=== PATIENT | female | born 1930 | race Caucasian/White ===

== ENCOUNTER 2017-07-10 10:28 | Inpatient (IN) | payer MEDICARE, MEDICAID ==
[2017-07-10] MEDS ORDERED: Albuterol Sulfate 2.5 mg/3 ml Neb ONE (11:19)
[2017-07-10] MEDS ORDERED: Guaifenesin DM 100-10/5 ML UDCUP PO PRN (11:57)
[2017-07-10] MEDS ORDERED: Ondansetron ODT 4 MG TAB PO PRN (11:57)
[2017-07-10] MEDS ORDERED: Senokot 8.6 MG TAB PO PRN (11:57)
[2017-07-10] MEDS ORDERED: Mag-Al 1200 mg/1200 mg/30 ML UDCUP PO PRN (11:57)
[2017-07-10] MEDS ORDERED: Acetaminophen 325 MG TAB PO PRN (11:57)
[2017-07-10] MEDS ORDERED: Sodium Chloride 0.9% 1,000 ML IV SCH ×3 (12:00→15:15)
[2017-07-10] MEDS ORDERED: Dextrose 5% in Water 1,000 ML IV PRN (12:25)
[2017-07-10] MEDS ORDERED: Dextrose 50% Abboject 50 ML SYRINGE SLOW IVP PRN (12:25)
[2017-07-10 13:12] LABS: Hemoglobin A1c 6.4 % (4.0-6.0)
[2017-07-10 13:31] LABS: Troponin I 0.053 ng/mL (< 0.028)
[2017-07-10] MEDS ORDERED: Nitroglycerin 0.4 MG TAB (25 Tab Bottle) SL PRN (13:47)
[2017-07-10 14:22] LABS: Magnesium 1.8 mg/dL (1.6-2.6); Phosphorus 3.6 mg/dL (2.3-4.7)
--- NOTE | 2017-07-10 14:42 | PDOC.EVN ---
Attending Addendum - Attending Addendum I personally evaluated the patient and discussed the management with Dr. Garcia. I agree with the History, Examination, Assessment and Plan documented in his H& P with any addition or exceptions noted below. Patient is 87 yo F with history of CAD s/p CABG, HTN, HLD, COPD, DM, and possible CHF who presents with 10 days of feeling "sick". Patient endorses malaise, progressive shortness of breath with dry cough, and nasal congestion during this time. She denies fevers, chills, lower extremity edema, nausea, vomiting. This morning, she was experiencing significant dyspnea and therefore presented to the ER. She was found at that time to have O2 sats in the 70s on room air. WBC elevated to 20.2 with 82% neutrophils, Creatinine 3.2 with GFR 14. She also has elevated BNP and indeterminate trop. CXR from outside ER showed LLL infiltrate and possible RLL infiltrate. Her lung exam is significant for diffuse rales and expiratory wheezes, mild rhonchi. Her cap refill is 4 seconds and she has no lower extremity edema. Patient admitted for Hypoxic respiratory failure and Sepsis likely 2/2 Community Aquired Pneumonia. She has been started on Rocephin and Azithromycin, IV fluids, and cultures obtained. O2 as needed and neb treatments for respiratory support. She has severe kidney disease, unknown if acute or chronic. Will see how it responds to IVF and recheck in AM. If continues to be end stage range, will need nephrology consult , though no current indication for urgent or emergent HD. She may have heart failure, though no current evidence of volume overload. Will need to monitor closely. Echo will be ordered. Other chronic home meds will be continued.
[2017-07-10 15:33] VITALS: BMI 25.0
--- NOTE | 2017-07-10 16:11 | HP-2 ---
DATE OF ADMISSION: 07/10/2017 CODE STATUS: DNR. PRIMARY CARE PHYSICIAN: Deepa Kuhn. ATTENDING: Gage Guevara M.D. RESIDENT: Aime Garcia M.D., PGY1. CHIEF COMPLAINT: Being sick for the last 10 days with cough. HISTORY OF PRESENT ILLNESS: This is an 87-year-old female with a 10-day history of being sick, says mainly she has just been having a real bad cough. Has shortness of breath that has continued to get worse until it got so worse today that she decided to go to the ER. Said she has also been having ru nny nose, having some nasal congestion, has not had any sore throat. Reports having fevers off and o n. No chills, no sweating. Denies any chest pain. Denies any nausea, vomiting, diarrhea, constipat ion. Denies any urinary symptoms, burning with urination, increased urination or anything like that. She (00:00) just reports having a cough and runny nose. Said she has just not been feeling well, b een lying in bed over the last 10 days, has been drinking fluids okay, has not been eating as much th ough, but is tolerating food as well. Says that she did have a stress test earlier in the recent pas t, was told that she needed to follow up in August. Denies any echo or anything like that. PAST MEDICAL HISTORY: Diabetes mellitus, chronic heart failure, hypertension, hyperlipidemia, histor y of DVTs, has had 2 heart attacks in the past. PAST SURGICAL HISTORY: She has had bilateral knee surgeries, x2 and triple bypass. ALLERGIES: SULFA MEDICATIONS. MEDICATIONS: 1. Ezetimibe 10 mg daily. 2. Duloxetine 20 mg 1 time daily. 3. Losartan 25 mg daily. 4. Simvastatin 20 mg 1 time daily. 5. Carvedilol 12.5 mg 2 times daily. 6. Levothyroxine 125 (00:00) mcg daily. 7. Furosemide 20 mg daily. FAMILY HISTORY: Insignificant. SOCIAL HISTORY: Tobacco, she quit 11 years ago, 40+ year pack per day smoker. No alcohol use, no il licit drug use. REVIEW OF SYSTEMS: All review of systems listed in the HPI, otherwise negative at this time. PHYSICAL EXAMINATION: VITAL SIGNS: Blood pressure 137/69, pulse 78, respirations 20, temperature is 98.4, pulse ox 93% on 3 liters. Current weight is (00:00) 73.48 kilograms. GENERAL: This is alert and oriented x3. Well-developed, well-nourished, appropriately interactive. EYES: PERRLA. Conjunctivae within normal limits. ENT: Nasal mucosa within normal limits. Oropharynx within normal limits. NECK: Supple, no lymphadenopathy, no thyromegaly, no bruits. CARDIOVASCULAR: Regular rate and rhythm. No murmurs, no gallops. Radial pulses, pedal pulses palpa judi bilaterally. RESPIRATORY: Normal breathing effort. No retractions. LUNGS: Expiratory wheezes noted, rales noted all over. Some diffuse crackles throughout her lungs. SKIN: Warm, dry. No lesions noted. No redness noted in lower extremities. ABDOMEN: Soft, nontender to palpation. Bowel sounds are in all 4 quadrants. No masses or distentio n. MUSCULOSKELETAL: Structure within normal limits. Full range of motion. No edema. No pitting. No swelling noted. NEUROLOGIC: No focal neuro deficit. LABORATORY DATA: White blood cell count 22.2, hemoglobin 11.4, hematocrit 34.4, neutrophils 82%, lucila telets 371. Sodium is 134, potassium is 4.7, chloride is 99, bicarbonate is 21, BUN is 64, and creat inine is 3.2. GFR is 14. Glucose is 224, calcium is 10.3, total protein is 8.1, albumin is 3.3, tot al bilirubin is 0.6, AST is 94, ALT is 35, alkaline phosphatase is 132, CK-MB is 4.2. Troponin was 0 .034. BNP was 1012. TSH was 4.835. EKG had some T-wave changes. Chest x-ray is read as pending. Look like some fluid overload and also look like a left lower lobe consolidation on my observation. ASSESSMENT AND PLAN: 1. Sepsis secondary to acute hypoxic respiratory failure secondary to left lower lobe pneumonia and was given Rocephin and azithromycin at the outside ER. We will continue this antibiotic treatment. We will check urinary antigen, legionella and strep pneumo antigens to see if we can find a source of pneumonia to further treatment plan. I will do DuoNebs q.4 hours scheduled. We will check a lactic acid as she had an elevated white blood cell count, had elevated respiratory rate, was 70% on the ou tside ER. We will want to get a lactic acid to check on the sepsis status. 2. We will check CBC, CMP repeat in the a.m., was started on fluids at a rate of 125 mL an hour. We will continue to monitor, as she does have congestive heart failure as well. 3. Chronic obstructive pulmonary disease exacerbation. Plan as above. We can see how she does over the next few days, may consider adding on steroids to help with breathing status. Does not use oxyg en at home. 4. Chronic heart failure. Her BNP is elevated. She does not seem fluid overloaded. Chest x-ray sh ows maybe some mild fluid overload. Has not had an echo. We will get an echo. We will give gentle fl uids for the infections. We will hold her home Lasix for now and continue to monitor daily BMPs che ked for fluid overload and will adjust fluids as needed. 5. Chronic kidney disease stage 5. GFR was 14, creatinine was 3.2. We do not have a baseline, unsu re what the patient normally fits. She said her urine output has not been very good over this course of being sick. Again we are giving fluids per plan above. We will recheck BMP in the morning to se e if this helps. Patient may just be fluid down as she has been taking Lasix, been ill, maybe not be en drinking enough fluids. 6. Diabetes mellitus. We will get a hemoglobin A1c. Blood sugars were little elevated. Placed on mild sliding scale insulin. We will check Accu-Cheks a.c. and at bedtime. 7. Hypertension. We will continue her home medications. 8. Hyperlipidemia. We will continue her home medications. 9. Normocytic anemia. We will continue to monitor with daily CBCs and then we may need to follow up outpatient. 10. Elevated troponin. Troponins 0.034. Has a significant heart history, I will continue to trend troponins. Patient has denied any chest pain or any heart pain. She says she has not felt anything like she had heart attacks in her recent past. 11. Deep venous thrombosis prophylaxis. We will put on Lovenox with her history of deep venous thro mboses.
[2017-07-10 16:12] LABS: Troponin I 0.037 ng/mL (< 0.028)
[2017-07-10] MEDS ORDERED: Prevnar 13-Val Conj/PF 0.5 ML SYRINGE IM ONE (16:45)
[2017-07-10] MEDS ORDERED: FLU VACC TS2017-18 (>65YR) 0.5 ML SYRINGE IM ONE (16:45)
[2017-07-10 16:53] LABS: Legionella Urinary Ag Negative (Negative); Strep pneumo Urine Ag NEGATIVE (NEGATIVE)
[2017-07-10] MEDS: HumaLOG 300 UNITS/3 ML VIAL SC PRN (19:34)
[2017-07-10] MEDS: Docusate 100 MG CAP PO SCH (20:30)
[2017-07-10] MEDS: Atorvastatin Calcium 10 MG TAB PO SCH (20:30)
[2017-07-10] MEDS ORDERED: Atorvastatin Calcium 40 MG TAB PO SCH (21:00)
[2017-07-10] MEDS: Sodium Chloride 0.9% 1,000 ML IV SCH ×2 (21:45→23:15)
[2017-07-10 22:19] LABS: Bilirubin Negative (Negative); Blood, Urine Small (Negative); Clarity CLOUDY (Clear); Glucose, Urine (Dipstick) 250 mg/dL (Negative); Leukocyte Negative (Negative); Nitrite Negative (Negative); Protein, Urine (Dipstick) 300 mg/dL (Neg-Trace); Specific Gravity, Urine 1.019 (1.002-1.036); pH, Urine 5.5 (5.0-9.0)
[2017-07-10 22:24] LABS: Bacteria/HPF None Seen HPF (None Seen); Hyaline Casts/LPF 7-10 HYALINE CAST LPF (0-3 Hyaline); Pathc Cast-AUWi Flag 2.43 (0-2.49); RBC/HPF 0-3 HPF (0-3)
[2017-07-10 22:39] LABS: Creatinine, Urine 111.53 mg/dL (47-110); Sodium, Urine Less than 20 mmol/L (Not Available)
[2017-07-11] MEDS: Levothyroxine Sodium 125 MCG TAB PO SCH (05:05)
[2017-07-11] MEDS: HumaLOG 300 UNITS/3 ML VIAL SC PRN (05:24)
[2017-07-11 05:36] LABS: #Lymphocytes 1.2 thou/uL (1.20-3.40); #Monocytes 0.5 thou/uL (0.11-0.59); #Neutrophils 12.3 thou/uL (1.40-6.50); %Basophils 0.2 % (0.0-1.0); %Eosinophils 0.1 % (0.0-10.0); %Lymphocytes 8.4 % (21.0-51.0); %Monocytes 3.5 % (0.0-10.0); %Neutrophils 87.7 % (42.0-75.0); Hemoglobin 8.9 g/dL (12.0-16.0); Mean Corpuscular HGB CONC 32.5 g/dL (32.0-36.0); Mean Corpuscular Hemoglobin 30.3 pg (27.0-31.0); Mean Corpuscular Volume 93.2 fl (81.0-99.0); Mean Platelet Volume 7.6 fL (7.4-10.4); Platelet Count 363 thou/uL (130-400); RBC Distribution Width 12.3 % (11.5-14.5); Red Blood Cell (RBC) Count 2.94 mill/uL (4.20-5.40)
[2017-07-11 05:49] LABS: ALT (SGPT) 35 U/L (8-55); AST (SGOT) 102 U/L (5-34); Albumin 2.7 g/dL (3.4-4.8); Alkaline Phosphatase 114 U/L (40-150); Anion Gap 14 mmol/L (10-20); BUN (Urea Nitrogen) 71 mg/dL (9.8-20.1); Bilirubin, Total 0.2 mg/dL (0.2-1.2); Calc. Creatinine Clearance 15 mL/min (70-130); Calcium 8.9 mg/dL (7.8-10.44); Carbon Dioxide 22 mmol/L (23-31); Chloride 103 mmol/L (98-107); Estimated GFR-MDRD 15; Globulin 3.7 g/dL (2.4-3.5); Glucose 276 mg/dL (83-110); Protein, Total 6.4 g/dL (6.0-8.3); Sodium 134 mmol/L (136-145)
[2017-07-11] MEDS ORDERED: Levothyroxine 100 MCG SDV IVP SCH (06:00)
--- NOTE | 2017-07-11 06:55 | PDOC.FM ---
- Subjective Subjective: Pt reports feeling much better today. Says her cough has improved and not as SOB. Denies any acute events overnight. Denies any fever or chills. Denies any other problems at this time. - Objective Vital Signs & Weight: Vital Signs (12 hours) Temp Pulse Resp BP Pulse Ox 07/11/17 05:00 98.8 F 69 19 155/72 H 96 07/11/17 02:23 64 16 07/11/17 00:00 98 F 94 18 131/63 95 07/10/17 22:49 66 16 07/10/17 19:45 97.9 F 96 18 167/79 H 99 07/10/17 19:42 68 16 93 L 07/10/17 19:00 98.0 F 68 16 96 Weight Weight 72.303 kg I&O: 07/09/17 07/10/17 07/11/17 06:59 06:59 06:59 Intake Total 1850 Balance 1850 Result Diagrams: 07/11/17 05:11 07/11/17 05:11 Radiology Reviewed by me: Yes Radiology: CXR 07/11: 1. Similar appearance to the chest w/ likely chronic opacity of the lingula right perihilar region left lower lobe. Given the density of the r hilum. a f/u ct nonemergent can be performed. 2. mild increased interstitial makings, chronic in nature <Aime Garcia - Last Filed: 07/11/17 08:35> - Objective Vital Signs & Weight: Vital Signs (12 hours) Temp Pulse Resp BP BP Pulse Ox 07/11/17 11:37 97.8 F 66 20 134/69 97 07/11/17 10:31 99 07/11/17 10:29 64 20 99 07/11/17 09:31 158/71 H 07/11/17 08:20 98.9 F 62 20 158/71 H 97 07/11/17 08:00 98.9 F 62 20 97 07/11/17 05:00 98.8 F 69 19 155/72 H 96 07/11/17 02:23 64 16 Weight Admit Weight 72.303 kg Weight 72.303 kg I&O: 07/10/17 07/11/17 07/12/17 06:59 06:59 06:59 Intake Total 1850 Balance 1850 Result Diagrams: 07/11/17 05:11 07/11/17 05:11 <GuevaraGage Shelley Cynthia - Last Filed: 07/11/17 12:10> Phys Exam - Physical Examination Constitutional: NAD HEENT: PERRLA Respiratory: no wheezing crackles noted. Decreased breath sounds in bases bilaterally Cardiovascular: RRR, no significant murmur, no rub Gastrointestinal: soft, non-tender, no distention, positive bowel sounds Musculoskeletal: no edema, pulses present Neurological: non-focal, normal sensation, moves all 4 limbs Lymphatic: no nodes Psychiatric: normal affect, A&O x 3 Skin: no rash, normal turgor, cap refill <2 seconds <Aime Garcia - Last Filed: 07/11/17 08:35> Dx/Plan (1) Acute respiratory failure with hypoxia Code(s): J96.01 - ACUTE RESPIRATORY FAILURE WITH HYPOXIA Status: Acute (2) Pneumonia Code(s): J18.9 - PNEUMONIA, UNSPECIFIED ORGANISM Status: Acute (3) Sepsis Code(s): A41.9 - SEPSIS, UNSPECIFIED ORGANISM Status: Resolved (4) CHARMAINE (acute kidney injury) Code(s): N17.9 - ACUTE KIDNEY FAILURE, UNSPECIFIED Status: Acute (5) CKD (chronic kidney disease) Code(s): N18.9 - CHRONIC KIDNEY DISEASE, UNSPECIFIED Status: Acute (6) Diabetes Code(s): E11.9 - TYPE 2 DIABETES MELLITUS WITHOUT COMPLICATIONS Status: Acute (7) COPD (chronic obstructive pulmonary disease) Status: Acute (8) Hypothyroidism Code(s): E03.9 - HYPOTHYROIDISM, UNSPECIFIED Status: Acute (9) Hx of coronary artery disease Code(s): Z86.79 - PERSONAL HISTORY OF OTHER DISEASES OF THE CIRCULATORY SYSTEM Status: Acute (10) Hx of deep venous thrombosis Code(s): Z86.718 - PERSONAL HISTORY OF OTHER VENOUS THROMBOSIS AND EMBOLISM Status: Acute - Plan Plan: 1)Acute hypoxic respitory failure 2/2 PNA -Requiring oxygen at this time. Does not use O2 at home. -On rocephin and azithromycin for abx coverage at this time. -Blood cx- NGTD -Repeat CXR shows no real changes. Shows LLL density likely PNA. Also shows some sign of fluid overload. Likely will D/C fluids and maybe give small dose of IV lasix. -WBC count has improved -Sepsis has since resolved. Vital signs stable overnight 2) CHF -Pt has hx of CHF -Has not had ECHO. Awaiting ECHO results to further tailor tx -Does not show signs of fluid overload at this time. Lasix being held for now. 3) CHARMAINE on CKD -CKD stage unknown. do not know baseline. GFR 14 or 15. either stage 4 or 5. -Cr improved today after fluids. -May need lasix but do not want to worsen kidney function. No sign of fluid overload on exam. Will continue IV fluids for now and continue to monitor BMP 4) DM2 -Blood sugars elevated. On moderate sliding scale insulin. Added baseline dose of levermir 10 units in the AM today. -Will continue to monitor and adjust 5) HTN -BP elevated. May need to increase blood pressure medication. Lasix being held at this time. Will continue to monitor 6)Hypothyroidism -continue home meds 7) HLD -continue home meds 8)DVT Ppx -Lovenox <Aime Garcia - Last Filed: 07/11/17 08:35> Attending Addendum - Attending Addendum I personally evaluated the patient and discussed the management with Dr. Garcia. I agree with the History, Examination, Assessment and Plan documented above with any addition or exceptions noted below. Patient subjectively better but with continuation of nagging cough. Her O2 sats are improved and air entry is improved. Continue abx for community acquired pneumonia. Her WBC has downtrended and she is afebrile. Her renal function did not substantially improve yesterday, but studies continue to suggest pre-renal cause in the setting of unknown degree of CKD. Will continue fluid hydration. If her renal function does not improve significantly today with fluids, will need nephrology consult. No lab abnormalities to suggest the need for renal replacement therapy at this time. Patient does endorse that she does not want to persue dialysis if that becomes necessary. Will monitor closely for fluid overload, Echo pending. <Gage Guevara - Last Filed: 07/11/17 12:10>
[2017-07-11 07:42] LABS: Iron 31 ug/dL (50-170); Iron Binding Capacity, Total 169 mcg/dL (265-497)
--- NOTE | 2017-07-11 08:25 | RAD ---
CHEST 2 VIEWS: HISTORY: Pleural effusion. COMPARISON: Chest 1 view 07/10/17. FINDINGS: There is a right hilar opacity. There is scarring in the lingula. Small left effusion. No pneumoth orax. Scarring in the lung apices. Mild increased interstitial markings. Dense vascular calcifications of the aorta. IMPRESSION: 1. Similar appearance to the chest with likely chronic opacity of the lingula right perihilar region left lower lobe. Given the density of the right hilum, a followup CT nonemergent can be performed. 2. Mild increased interstitial markings, likely chronic in nature. POS: [facility]
[2017-07-11] MEDS ORDERED: cefTRIAXone\\ROCEPHIN 1 GM in Sodium Chloride 0.9% 100 ML IVPB SCH (09:00)
[2017-07-11] MEDS ORDERED: Insulin Detemir 100 UNITS/ML 10 UNITS in Pre-Filled Syringe 1 EACH SC SCH (09:00)
[2017-07-11] MEDS: Ezetimibe 10 MG TAB PO SCH (09:30)
[2017-07-11] MEDS: Losartan 25 MG TAB PO SCH (09:31)
[2017-07-11] MEDS: cefTRIAXone\\ROCEPHIN 1 GM, Syringe 0.4 ML in Sterile Water 9.6 ML SLOW IVP SCH (09:31)
[2017-07-11] MEDS: Carvedilol 6.25 MG TAB PO SCH ×2 (09:31→17:19)
[2017-07-11] MEDS: Furosemide 20 MG TAB PO SCH (09:31)
[2017-07-11] MEDS: Aspirin 325 MG TAB PO SCH (09:31)
[2017-07-11] MEDS: Enoxaparin Sodium 40 MG/0.4 ML SYRINGE SC SCH (09:32)
[2017-07-11] MEDS: Docusate 100 MG CAP PO SCH ×2 (09:32→20:48)
[2017-07-11] MEDS: Azithromycin 500 MG in Sodium Chloride 0.9% 250 ML 250 ML IVPB SCH (09:32)
[2017-07-11 14:24] LABS: Anion Gap 13 mmol/L (10-20); BUN (Urea Nitrogen) 72 mg/dL (9.8-20.1); Calc. Creatinine Clearance 16 mL/min (70-130); Calcium 8.9 mg/dL (7.8-10.44); Carbon Dioxide 24 mmol/L (23-31); Chloride 104 mmol/L (98-107); Estimated GFR-MDRD 15; Glucose 172 mg/dL (83-110); Potassium 4.4 mmol/L (3.5-5.1); Sodium 137 mmol/L (136-145)
[2017-07-11] MEDS: Sodium Chloride 0.9% 1,000 ML IV SCH ×2 (17:21→20:51)
--- NOTE | 2017-07-11 17:21 | ULT ---
RENAL ULTRASOUND: 07/11/17 CLINICAL HISTORY: Acute renal insufficiency. FINDINGS: Renal lengths are symmetric, at approximately 9 cm. There is a cyst just under 2 cm in diameter at th e superior pole right kidney. Urinary bladder reveals no significant abnormality. There is no overt h ydronephrosis. Incidental cholelithiasis is seen. IMPRESSION: Right renal cyst. Incidental cholelithiasis. Correlate clinically. POS: [facility]
[2017-07-11 19:57] LABS: Creatinine, Urine 62.74 mg/dL (47-110)
[2017-07-11] MEDS: Atorvastatin Calcium 10 MG TAB PO SCH (20:48)
[2017-07-11] MEDS: guaiFENesin/DM ER PO SCH (20:48)
--- NOTE | 2017-07-12 01:11 | CON ---
DATE OF CONSULTATION: 07/11/2017 REASON FOR CONSULTATION: Elevated creatinine. HISTORY OF PRESENT ILLNESS: This is a very pleasant 87-year-old female who presented to the hospital yesterday with a creatinine of 3.2, which went down to 2.1. The patient has been sick for the last 10 days with cough. The patient denies chest pain, orthopnea or PND and has edema . PAST MEDICAL HISTORY: Significant for diabetes mellitus, congestive heart failure, hyperlipidemia, DVT, history of coronary artery disease, history of bilateral knee surgeries, and triple bypass. ALLERGIES: Reviewed. HOME MEDICATIONS: List reviewed. HOSPITAL MEDICATIONS: List reviewed. REVIEW OF SYSTEMS: Fifteen-point review of systems was performed and negative except positives noted above. GENERAL: Weakness- HEAD: Headache- NECK: No swelling or lumps. NOSE: No epistaxis or discharge. EYES: No diplopia or pain. RESPIRATORY: Dyspnea- CARDIOVASCULAR: Chest pain- GASTROINTESTINAL: Nausea- /TRACTOR [employer]IVER: Hematuria- MUSCULOSKELETAL: No joint pain. NEUROPSYCHIATIC SYSTEMS: No suicidal ideation. No ideation. SKIN: Denies any rash or ulcer. CONSTITUTIONAL: No fever or chills. PHYSICAL EXAMINATION: GENERAL: The patient is awake and alert. VITAL SIGNS: Afebrile, pulse 95, breathing at 16, blood pressure 120/70. GENERAL APPEARANCE AND MENTAL STATUS: Fair. HEAD/NECK: Normocephalic. Atraumatic. EYES: EOMI. No deformity. EARS: Clear. No ulcers. NOSE: Intact. No lesions. MOUTH: Clear. No discharge. THROAT: Clear. No exudate. LUNGS: Clear. No crackles. CARDIAC: S1, S2. No rub. ABDOMEN: Benign. BS+. GENITALIA/RECTUM: Garner absent. BACK/EXTREMITIES: Edema 0+ Ulcer-. NEUROLOGICAL: Alert and motor intact. SKIN: Rash- Bruise-. LYMPHATICS: Edema- Ulcer-. ASSESSMENT AND RECOMMENDATIONS: 1. Acute kidney injury with chronic kidney disease, most likely due to decreased effective arterial blood volume . I will try to get old records and order renal imaging. 2. Hypertension, stable. 3. Anemia, stable. 4. Proteinuria, indicates chronic kidney disease. We will consider workup like an SPEP and UPEP as an outpatient. All the above findings were discussed with the patient and all questions were answered. ANNA
[2017-07-12] MEDS: Sodium Chloride 0.9% 1,000 ML IV SCH ×2 (04:45→13:46)
[2017-07-12 05:28] LABS: #Eosinphils 0.2 thou/uL (0.0-0.7); #Lymphocytes 1.8 thou/uL (1.20-3.40); #Neutrophils 12.1 thou/uL (1.40-6.50); %Basophils 0.1 % (0.0-1.0); %Eosinophils 1.5 % (0.0-10.0); %Lymphocytes 11.8 % (21.0-51.0); %Monocytes 6.8 % (0.0-10.0); %Neutrophils 79.8 % (42.0-75.0); Hemoglobin 9.1 g/dL (12.0-16.0); Mean Corpuscular HGB CONC 31.5 g/dL (32.0-36.0); Mean Corpuscular Hemoglobin 29.7 pg (27.0-31.0); Mean Corpuscular Volume 94.4 fl (81.0-99.0); Mean Platelet Volume 7.2 fL (7.4-10.4); Platelet Count 382 thou/uL (130-400); RBC Distribution Width 12.5 % (11.5-14.5); Red Blood Cell (RBC) Count 3.06 mill/uL (4.20-5.40); White Blood Cell (WBC) Count 15.1 thou/uL (4.8-10.8)
[2017-07-12] MEDS: Levothyroxine Sodium 125 MCG TAB PO SCH (05:46)
[2017-07-12 06:15] LABS: ALT (SGPT) 40 U/L (8-55); AST (SGOT) 114 U/L (5-34); Albumin 2.6 g/dL (3.4-4.8); Alkaline Phosphatase 104 U/L (40-150); Anion Gap 12 mmol/L (10-20); BUN (Urea Nitrogen) 66 mg/dL (9.8-20.1); Bilirubin, Total Less than 0.2 mg/dL (0.2-1.2); Calc. Creatinine Clearance 17 mL/min (70-130); Calcium 8.6 mg/dL (7.8-10.44); Carbon Dioxide 22 mmol/L (23-31); Chloride 109 mmol/L (98-107); Estimated GFR-MDRD 16; Globulin 3.4 g/dL (2.4-3.5); Glucose 88 mg/dL (83-110); Potassium 4.2 mmol/L (3.5-5.1); Sodium 139 mmol/L (136-145)
--- NOTE | 2017-07-12 06:55 | PDOC.FM ---
Addendum entered and electronically signed by Aime Garcia MD 07/12/17 10:57 : Pt reports being weak getting up. Having trouble pushing off. Also said she laid in bed 10 days prior to admission due to illness. Likely has some deconditioning. Pt said she does not feel safe to go home soon. Will order rehab screening at this time Original Note: - Subjective Subjective: Pt reports doing well this morning. She had just awoken from slumber. Denied any acute events overnight. Denied any fever or chills. Denied having pain. Said cough was doing better. Stated she hadn't worked with PT/OT. - Objective MAR Reviewed: Yes Vital Signs & Weight: Vital Signs (12 hours) Temp Pulse Resp BP Pulse Ox 07/12/17 00:00 97.5 F L 65 20 138/56 L 93 L 07/11/17 22:02 69 18 97 07/11/17 20:00 97.5 F L 69 18 138/56 L 93 L 07/11/17 19:37 97.6 F 69 22 H 170/101 H 97 Weight Admit Weight 72.303 kg Weight 72.303 kg I&O: 07/10/17 07/11/17 07/12/17 06:59 06:59 06:59 Intake Total 1850 1824 Balance 1850 1824 Result Diagrams: 07/12/17 04:48 07/12/17 04:48 Radiology Reviewed by me: Yes (No new images to review) <Aime Garcia - Last Filed: 07/12/17 08:06> - Objective Vital Signs & Weight: Vital Signs (12 hours) Temp Pulse Resp BP BP Pulse Ox 07/12/17 11:00 97.4 F L 71 18 158/71 H 94 L 07/12/17 10:20 76 24 H 07/12/17 08:31 177/72 H 07/12/17 08:03 97 07/12/17 08:00 97.9 F 71 16 177/72 H 97 07/12/17 04:00 97.6 F 73 22 H 158/64 H 97 Weight Admit Weight 72.303 kg Weight 72.303 kg I&O: 07/11/17 07/12/17 07/13/17 06:59 06:59 06:59 Intake Total 1850 1824 Balance 1850 1824 Result Diagrams: 07/12/17 04:48 07/12/17 04:48 <Gage Guevara - Last Filed: 07/12/17 12:57> Phys Exam - Physical Examination Constitutional: NAD HEENT: PERRLA, moist MMs, oral pharynx no lesions Neck: no nodes, supple, full ROM Respiratory: no wheezing, no rhonchi decreased breath sounds in the bases Cardiovascular: RRR, no significant murmur, no rub Gastrointestinal: soft, non-tender, no distention, positive bowel sounds Musculoskeletal: no edema, pulses present Neurological: non-focal, normal sensation, moves all 4 limbs Lymphatic: no nodes Psychiatric: normal affect Skin: no rash, normal turgor, cap refill <2 seconds <Aime Garcia - Last Filed: 07/12/17 08:06> Dx/Plan (1) Acute respiratory failure with hypoxia Code(s): J96.01 - ACUTE RESPIRATORY FAILURE WITH HYPOXIA Status: Acute (2) Pneumonia Code(s): J18.9 - PNEUMONIA, UNSPECIFIED ORGANISM Status: Acute (3) Sepsis Code(s): A41.9 - SEPSIS, UNSPECIFIED ORGANISM Status: Resolved (4) CHARMAINE (acute kidney injury) Code(s): N17.9 - ACUTE KIDNEY FAILURE, UNSPECIFIED Status: Acute (5) CKD (chronic kidney disease) Code(s): N18.9 - CHRONIC KIDNEY DISEASE, UNSPECIFIED Status: Chronic (6) Diabetes Code(s): E11.9 - TYPE 2 DIABETES MELLITUS WITHOUT COMPLICATIONS Status: Acute (7) COPD (chronic obstructive pulmonary disease) Status: Acute (8) Hypothyroidism Code(s): E03.9 - HYPOTHYROIDISM, UNSPECIFIED Status: Acute (9) Hx of coronary artery disease Code(s): Z86.79 - PERSONAL HISTORY OF OTHER DISEASES OF THE CIRCULATORY SYSTEM Status: Acute (10) Hx of deep venous thrombosis Code(s): Z86.718 - PERSONAL HISTORY OF OTHER VENOUS THROMBOSIS AND EMBOLISM Status: Acute (11) Anemia Code(s): D64.9 - ANEMIA, UNSPECIFIED Status: Acute QualifierTitle: Anemia type: due to chronic kidney disease Chronic kidney disease stage: unspecified stage Qualified Code(s): N18.9 - Chronic kidney disease, unspecified; D63.1 - Anemia in chronic kidney disease; D63.1 - Anemia in chronic kidney disease - Plan Plan: 1)Acute hypoxic respitory failure 2/2 PNA -Requiring oxygen at this time. Does not use O2 at home. On 1 L this morning -On rocephin and azithromycin for abx coverage at this time. -Blood cx- NGTD -Repeat CXR shows no real changes. Shows LLL density likely PNA. Also shows some sign of fluid overload. -WBC had mild increase. No fevers overnight. No acute events. Will continue to watch and treat -Sepsis has since resolved. Vital signs stable overnight 2) CHF -Pt has hx of CHF -ECHO shows EF of 50-55%. Shows moderate mitral regurgitation -Does not show signs of fluid overload at this time. Lasix being held for now. -Will continue to monitor and tx with lasix if seems to be getting fluid overloaded 3) CHARMAINE on CKD -CKD stage unknown. do not know baseline. GFR 16 tdoay. either stage 4 or 5. -Cr improved today after fluids. Will continue fluids for now. Not fluid overlodaed -Nephrology consulted- Dr. Ellis- Will follow reccomendations -recommends some outpatient follow up 4) DM2 -Blood sugars in normal range. Added baseline dose of levermir 10 units in the AM. May want to decrease as she does not use insulin at home. Moderate SSI. -Will continue to monitor and adjust 5) HTN -BP elevated at times. May need to increase blood pressure medication. Lasix being held at this time. Will continue to monitor 6)Hypothyroidism -continue home meds 7) HLD -continue home meds 8)DVT Ppx -Lovenox <Aime Garcia - Last Filed: 07/12/17 08:06> Attending Addendum - Attending Addendum I personally evaluated the patient and discussed the management with Dr. Garcia. I agree with the History, Examination, Assessment and Plan documented above with any addition or exceptions noted below. Patient doing somewhat better today. Continue abx for CAP. Her O2 requirement has decreased. She does endorse weakness that has been progressive recently, will place rehab screen. Renal function somewhat improved, will continue IV hydration now that her Echo shows normal EF. Nephro on board and we appreciate their recs. <Gage Guevara - Last Filed: 07/12/17 12:57>
[2017-07-12] MEDS ORDERED: Insulin Detemir 100 UNITS/ML 5 UNITS in Pre-Filled Syringe 1 EACH SC SCH ×2 (08:16→09:00)
[2017-07-12] MEDS: Aspirin 325 MG TAB PO SCH (08:29)
[2017-07-12] MEDS: Losartan 25 MG TAB PO SCH (08:29)
[2017-07-12] MEDS: guaiFENesin/DM ER PO SCH ×2 (08:29→22:14)
[2017-07-12] MEDS: Furosemide 20 MG TAB PO SCH (08:29)
[2017-07-12] MEDS: Ezetimibe 10 MG TAB PO SCH (08:29)
[2017-07-12] MEDS: Docusate 100 MG CAP PO SCH ×2 (08:29→22:14)
[2017-07-12] MEDS: Carvedilol 6.25 MG TAB PO SCH ×2 (08:31→17:45)
[2017-07-12] MEDS: cefTRIAXone\\ROCEPHIN 1 GM, Syringe 0.4 ML in Sterile Water 9.6 ML SLOW IVP SCH (08:33)
[2017-07-12] MEDS: Azithromycin 500 MG in Sodium Chloride 0.9% 250 ML 250 ML IVPB SCH (08:34)
[2017-07-12] MEDS: Enoxaparin Sodium 40 MG/0.4 ML SYRINGE SC SCH (08:34)
--- NOTE | 2017-07-12 10:28 | PRG ---
DATE OF SERVICE: 07/12/2017 SUBJECTIVE: An 87-year-old female being seen for acute kidney injury. The patient denies any nausea , vomiting or chest pain. PHYSICAL EXAMINATION: GENERAL: Patient is awake, alert. VITAL SIGNS: Afebrile, pulse 97, breathing at 16, blood pressure 177/72. OBJECTIVE: See above. Awake, alert, in no acute distress. GENERAL APPEARANCE AND MENTAL STATUS: Fair. HEAD/NECK: Normocephalic. Atraumatic. EYES: EOMI. No deformity. EARS: Clear. No ulcers. NOSE: Intact. No lesions. MOUTH: Clear. No discharge. THROAT: Clear. No exudate. LUNGS: Clear. No crackles. CARDIAC: S1, S2. No rub. ABDOMEN: Benign. BS+. GENITALIA/RECTUM: Garner absent. BACK/EXTREMITIES: Edema 0+ Ulcer- NEUROLOGICAL: Alert and motor intact. SKIN: Rash- Bruise- LYMPHATICS: Edema- Ulcer- LABORATORY: Hemoglobin 9.1, creatinine is 2.7. ASSESSMENT AND RECOMMENDATIONS: 1. Acute kidney injury with chronic kidney disease, improved. 2. Hypertension, stable. 3. Anemia, stable. No indication for dialysis. 4. Patient can be discharged and followed up as an outpatient in the CKD Clinic within 1 week. 5. Right renal cystic disease. No evidence of any hydronephrosis.
[2017-07-12] MEDS ORDERED: predniSONE 20 MG TAB PO SCH (10:30)
[2017-07-12] MEDS: HumaLOG 300 UNITS/3 ML VIAL SC PRN (17:47)
[2017-07-12] MEDS: Budesonide 0.25 MG/2 ML NEB INH SCH (18:22)
[2017-07-12] MEDS: Atorvastatin Calcium 10 MG TAB PO SCH (22:14)
[2017-07-13] MEDS: Sodium Chloride 0.9% 1,000 ML IV SCH (00:09)
[2017-07-13] MEDS: Levothyroxine Sodium 125 MCG TAB PO SCH (05:11)
[2017-07-13 05:13] LABS: #Lymphocytes 0.9 thou/uL (1.20-3.40); #Monocytes 0.3 thou/uL (0.11-0.59); #Neutrophils 8.8 thou/uL (1.40-6.50); %Basophils 0.3 % (0.0-1.0); %Eosinophils 0.5 % (0.0-10.0); %Lymphocytes 8.5 % (21.0-51.0); %Monocytes 2.9 % (0.0-10.0); %Neutrophils 87.8 % (42.0-75.0); Hemoglobin 8.6 g/dL (12.0-16.0); Mean Corpuscular HGB CONC 31.5 g/dL (32.0-36.0); Mean Corpuscular Hemoglobin 29.8 pg (27.0-31.0); Mean Corpuscular Volume 94.6 fl (81.0-99.0); Mean Platelet Volume 7.3 fL (7.4-10.4); Platelet Count 363 thou/uL (130-400); RBC Distribution Width 12.7 % (11.5-14.5); Red Blood Cell (RBC) Count 2.89 mill/uL (4.20-5.40); White Blood Cell (WBC) Count 10.1 thou/uL (4.8-10.8)
[2017-07-13 05:26] LABS: ALT (SGPT) 30 U/L (8-55); AST (SGOT) 42 U/L (5-34); Albumin 2.6 g/dL (3.4-4.8); Alkaline Phosphatase 94 U/L (40-150); Anion Gap 13 mmol/L (10-20); BUN (Urea Nitrogen) 62 mg/dL (9.8-20.1); Bilirubin, Total Less than 0.2 mg/dL (0.2-1.2); Calc. Creatinine Clearance 18 mL/min (70-130); Calcium 8.3 mg/dL (7.8-10.44); Carbon Dioxide 22 mmol/L (23-31); Chloride 106 mmol/L (98-107); Estimated GFR-MDRD 17; Globulin 3.3 g/dL (2.4-3.5); Glucose 323 mg/dL (83-110); Potassium 4.9 mmol/L (3.5-5.1); Protein, Total 5.9 g/dL (6.0-8.3); Sodium 136 mmol/L (136-145)
--- NOTE | 2017-07-13 06:29 | PDOC.FM ---
- Subjective Subjective: Pt reports doing a little better this morning. States she is breathing a little better after steroids. Currenlty on 1 L of oxygen. Says she is still weak. Says rehab screening people came and talked with her yesterday. She is okay with a stay there after discharge. Denies any acute SOB. Denies any fever/chills overnight. Denies any acute events overnight. Still has not had a BM at this time. Just ate some prunes - Objective MAR Reviewed: Yes Vital Signs & Weight: Vital Signs (12 hours) Temp Pulse Resp BP Pulse Ox 07/13/17 00:00 97.3 F L 68 20 138/65 95 07/12/17 20:00 97.3 F L 75 22 H 131/63 92 L Weight Admit Weight 72.303 kg Weight 72.303 kg I&O: 07/11/17 07/12/17 07/13/17 06:59 06:59 06:59 Intake Total 1850 2064 5675 Balance 1850 8282 4316 Result Diagrams: 07/13/17 04:13 07/13/17 04:13 <Aime Garcia - Last Filed: 07/13/17 08:28> - Objective Vital Signs & Weight: Vital Signs (12 hours) Temp Pulse Resp BP BP Pulse Ox 07/13/17 10:06 64 18 98 07/13/17 08:59 166/68 H 07/13/17 08:00 97.3 F L 64 16 166/68 H 100 07/13/17 06:56 70 16 94 L 07/13/17 06:54 70 16 94 L 07/13/17 04:00 97.3 F L 70 20 166/78 H 94 L 07/13/17 00:00 97.3 F L 68 20 138/65 95 Weight Admit Weight 72.303 kg Weight 72.303 kg I&O: 07/12/17 07/13/17 07/14/17 06:59 06:59 06:59 Intake Total 1824 9952 240 Balance 1824 3841 240 Result Diagrams: 07/13/17 04:13 07/13/17 04:13 <Gage Guevara - Last Filed: 07/13/17 11:52> Phys Exam - Physical Examination HEENT: PERRLA, moist MMs Neck: no nodes, supple, full ROM Respiratory: wheezing present Rhonchi noted Cardiovascular: RRR, no significant murmur, no rub Gastrointestinal: soft, non-tender, positive bowel sounds mildly distended Musculoskeletal: no edema, pulses present Neurological: non-focal, normal sensation, moves all 4 limbs Lymphatic: no nodes Psychiatric: normal affect Skin: no rash, normal turgor, cap refill <2 seconds <Aime Garcia - Last Filed: 07/13/17 08:28> Dx/Plan (1) Acute respiratory failure with hypoxia Code(s): J96.01 - ACUTE RESPIRATORY FAILURE WITH HYPOXIA Status: Acute (2) Pneumonia Code(s): J18.9 - PNEUMONIA, UNSPECIFIED ORGANISM Status: Acute (3) Sepsis Code(s): A41.9 - SEPSIS, UNSPECIFIED ORGANISM Status: Resolved (4) CHARMAINE (acute kidney injury) Code(s): N17.9 - ACUTE KIDNEY FAILURE, UNSPECIFIED Status: Acute (5) CKD (chronic kidney disease) Code(s): N18.9 - CHRONIC KIDNEY DISEASE, UNSPECIFIED Status: Chronic (6) Diabetes Code(s): E11.9 - TYPE 2 DIABETES MELLITUS WITHOUT COMPLICATIONS Status: Acute (7) COPD (chronic obstructive pulmonary disease) Status: Acute (8) Hypothyroidism Code(s): E03.9 - HYPOTHYROIDISM, UNSPECIFIED Status: Acute (9) Hx of coronary artery disease Code(s): Z86.79 - PERSONAL HISTORY OF OTHER DISEASES OF THE CIRCULATORY SYSTEM Status: Acute (10) Hx of deep venous thrombosis Code(s): Z86.718 - PERSONAL HISTORY OF OTHER VENOUS THROMBOSIS AND EMBOLISM Status: Acute (11) Anemia Code(s): D64.9 - ANEMIA, UNSPECIFIED Status: Acute QualifierTitle: Anemia type: due to chronic kidney disease Chronic kidney disease stage: unspecified stage Qualified Code(s): N18.9 - Chronic kidney disease, unspecified; D63.1 - Anemia in chronic kidney disease; D63.1 - Anemia in chronic kidney disease (12) Physical deconditioning Code(s): R53.81 - OTHER MALAISE Status: Acute (13) Constipation Code(s): K59.00 - CONSTIPATION, UNSPECIFIED Status: Acute - Plan Plan: 1)Acute hypoxic respitory failure 2/2 PNA -Requiring oxygen at this time. Does not use O2 at home. On 1 L this morning -On rocephin and azithromycin for abx coverage at this time. -Repeat CXR shows no real changes. Shows LLL density likely PNA. Also shows some sign of fluid overload. -WBC normalized this am. -Was having some wheezing yesterday and O2 usage wasn't improving very much. Added on Prednisone burst and Pulmicort. -Sepsis has since resolved. Vital signs stable overnight 2) CHF -Pt has hx of CHF -ECHO shows EF of 50-55%. Shows moderate mitral regurgitation -Does not show signs of fluid overload at this time. Lasix being held for now. -Will continue to monitor and tx with lasix if seems to be getting fluid overloaded -Holding home lasix dose this am. 3) CHARMAINE on CKD -CKD stage unknown. do not know baseline. GFR 17 tdoay. either stage 4 or 5. -Cr improved today after fluids. Will continue fluids for now. Not fluid overloaded -Nephrology consulted- Dr. Ellis- Will follow recommendations -recommends some outpatient follow up 4) DM2 -Blood sugars in normal range. Blood sugars a little elevated. will increase basal rate a little bitModerate SSI. -Will continue to monitor and adjust 5) HTN -BP stable. Will continue to monitor 6)Hypothyroidism -continue home meds 7) HLD -continue home meds 8)Deconditioning -Pt reports being weak. Does not feel safe going home. -Pt was lying around in bed ill 10 days before admission. -Pt having trouble with getting up. -Rehab screen pending -PT/OT consulted- awaiting assessment 9)DVT Ppx -Lovenox 10) Constipation -MOM, Dulcolax and Sennokot. Also has been eating prunes. -May add some mag citrate to help or suppository <Aime Garcia - Last Filed: 07/13/17 08:28> Attending Addendum - Attending Addendum I personally evaluated the patient and discussed the management with Dr. Garcia. I agree with the History, Examination, Assessment and Plan documented above with any addition or exceptions noted below. Patient feels better from respiratory standpoint. Her lungs are moving more air and is less wheezing. Continue abx and steroids for PNA in setting of coexisting COPD. Her blood sugars are labile currently, likely steroid effect. Will need escalation of insulin therapy to get her blood sugars under adequate control. Awaiting therapy services recs and possible placement. <Gage Guevara - Last Filed: 07/13/17 11:52>
[2017-07-13] MEDS: HumaLOG 300 UNITS/3 ML VIAL SC PRN ×2 (06:45→16:47)
[2017-07-13] MEDS: Budesonide 0.25 MG/2 ML NEB INH SCH ×2 (06:54→18:19)
[2017-07-13] MEDS ORDERED: Magnesium Citrate 300 ML BOT PO SCH (08:45)
[2017-07-13] MEDS: guaiFENesin/DM ER PO SCH ×2 (08:53→20:34)
[2017-07-13] MEDS: Losartan 25 MG TAB PO SCH (08:53)
[2017-07-13] MEDS: Aspirin 325 MG TAB PO SCH (08:53)
[2017-07-13] MEDS: Docusate 100 MG CAP PO SCH ×2 (08:53→20:35)
[2017-07-13] MEDS: Ezetimibe 10 MG TAB PO SCH (08:53)
[2017-07-13] MEDS: predniSONE 20 MG TAB PO SCH (08:54)
[2017-07-13] MEDS: Carvedilol 6.25 MG TAB PO SCH (08:59)
[2017-07-13] MEDS: Azithromycin 500 MG in Sodium Chloride 0.9% 250 ML 250 ML IVPB SCH (09:00)
[2017-07-13] MEDS: Enoxaparin Sodium 40 MG/0.4 ML SYRINGE SC SCH (09:01)
[2017-07-13] MEDS: Insulin Detemir 100 UNITS/ML 8 UNITS in Pre-Filled Syringe 1 EACH SC SCH (09:02)
[2017-07-13] MEDS: cefTRIAXone\\ROCEPHIN 1 GM, Syringe 0.4 ML in Sterile Water 9.6 ML SLOW IVP SCH (09:44)
[2017-07-13] MEDS ORDERED: Ferrous Sulfate 325 MG TAB PO SCH (10:00)
[2017-07-13] MEDS: Carvedilol 25 MG TAB PO SCH (16:53)
--- NOTE | 2017-07-13 17:09 | PRG ---
DATE OF SERVICE: 07/13/2017 SUBJECTIVE: This is an 87-year-old female being seen for acute kidney injury. The patient denies an y nausea, vomiting, or chest pain. OBJECTIVE: GENERAL: The patient is awake, alert. VITAL SIGNS: Afebrile, pulse 70, breathing at 16, blood pressure 166/74. GENERAL APPEARANCE AND MENTAL STATUS: Fair. HEAD/NECK: Normocephalic. Atraumatic. EYES: EOMI. No deformity. EARS: Clear. No ulcers. NOSE: Intact. No lesions. MOUTH: Clear. No discharge. THROAT: Clear. No exudate. LUNGS: Clear. No crackles. CARDIAC: S1, S2. No rub. ABDOMEN: Benign. BS+. GENITALIA/RECTUM: Garner absent. BACK/EXTREMITIES: Edema 0+ Ulcer- NEUROLOGICAL: Alert and motor intact. SKIN: Rash- Bruise- LYMPHATICS: Edema- Ulcer- LABORATORY: Lab show hemoglobin 8.6, creatinine 2.6. ASSESSMENT: 1. Chronic kidney disease stage 4, stable. 2. Hypertension, stable. 3. Anemia, stable. 4. Hypertension. I would recommend titrating the patient's blood pressure medicines, so her carvedi lol increased to 25 b.i.d.
[2017-07-13] MEDS: Atorvastatin Calcium 10 MG TAB PO SCH (20:35)
[2017-07-14 05:24] LABS: #Eosinphils 0.1 thou/uL (0.0-0.7); #Lymphocytes 1.4 thou/uL (1.20-3.40); #Monocytes 0.5 thou/uL (0.11-0.59); #Neutrophils 9.3 thou/uL (1.40-6.50); %Basophils 0.1 % (0.0-1.0); %Eosinophils 0.7 % (0.0-10.0); %Lymphocytes 12.4 % (21.0-51.0); %Monocytes 4.6 % (0.0-10.0); %Neutrophils 82.2 % (42.0-75.0); Hemoglobin 8.6 g/dL (12.0-16.0); Mean Corpuscular HGB CONC 31.2 g/dL (32.0-36.0); Mean Corpuscular Hemoglobin 29.2 pg (27.0-31.0); Mean Corpuscular Volume 93.6 fl (81.0-99.0); Mean Platelet Volume 7.4 fL (7.4-10.4); Platelet Count 367 thou/uL (130-400); RBC Distribution Width 12.5 % (11.5-14.5); Red Blood Cell (RBC) Count 2.93 mill/uL (4.20-5.40); White Blood Cell (WBC) Count 11.3 thou/uL (4.8-10.8)
--- NOTE | 2017-07-14 05:48 | PDOC.FM ---
- Subjective Subjective: Pt reports doing better again this morning. Denies any acute SOB overnight. Says that cough has improved too. says she has been getting up with walker but with assistance. Pt is agreeable to rehab. Took oxygen off and checked O2 after talking with her. O2 sat around 92-93%. took O2 off and will continue to watch her. - Objective MAR Reviewed: Yes Vital Signs & Weight: Vital Signs (12 hours) Temp Pulse Resp BP Pulse Ox 07/14/17 04:47 95 07/13/17 20:00 97.5 F L 73 20 166/75 H 95 Weight Admit Weight 72.303 kg Weight 72.303 kg I&O: 07/12/17 07/13/17 07/14/17 06:59 06:59 06:59 Intake Total 1824 2475 1020 Balance 1824 2475 1020 Result Diagrams: 07/14/17 04:34 07/14/17 04:32 Radiology Reviewed by me: Yes (no new imaging to review ) <Aime Garcia - Last Filed: 07/14/17 09:06> - Objective Vital Signs & Weight: Vital Signs (12 hours) Temp Pulse Resp BP Pulse Ox 07/14/17 11:17 97.3 F L 69 20 167/75 H 97 07/14/17 10:30 70 16 98 07/14/17 07:48 97.6 F 70 20 07/14/17 07:46 97.6 F 70 20 179/71 H 93 L 07/14/17 06:56 70 16 94 L 07/14/17 06:54 70 16 94 L 07/14/17 04:47 95 Weight Admit Weight 72.303 kg Weight 72.303 kg I&O: 07/13/17 07/14/17 07/15/17 06:59 06:59 06:59 Intake Total 2475 1020 Balance 2475 1020 Result Diagrams: 07/14/17 04:34 07/14/17 04:32 <Nitza Wyatt - Last Filed: 07/14/17 12:15> Phys Exam - Physical Examination HEENT: PERRLA, moist MMs Neck: no nodes, supple, full ROM Respiratory: no wheezing mild rales Cardiovascular: RRR, no significant murmur, no rub Gastrointestinal: soft, non-tender, positive bowel sounds mildly distended Musculoskeletal: no edema, pulses present Neurological: non-focal, moves all 4 limbs Lymphatic: no nodes Psychiatric: normal affect Skin: no rash, normal turgor, cap refill <2 seconds <Aime Garcia - Last Filed: 07/14/17 09:06> Dx/Plan (1) Acute respiratory failure with hypoxia Code(s): J96.01 - ACUTE RESPIRATORY FAILURE WITH HYPOXIA Status: Acute (2) Pneumonia Code(s): J18.9 - PNEUMONIA, UNSPECIFIED ORGANISM Status: Acute (3) Sepsis Code(s): A41.9 - SEPSIS, UNSPECIFIED ORGANISM Status: Resolved (4) CHARMAINE (acute kidney injury) Code(s): N17.9 - ACUTE KIDNEY FAILURE, UNSPECIFIED Status: Acute (5) CKD (chronic kidney disease) Code(s): N18.9 - CHRONIC KIDNEY DISEASE, UNSPECIFIED Status: Chronic (6) Diabetes Code(s): E11.9 - TYPE 2 DIABETES MELLITUS WITHOUT COMPLICATIONS Status: Acute (7) COPD (chronic obstructive pulmonary disease) Status: Acute (8) Hypothyroidism Code(s): E03.9 - HYPOTHYROIDISM, UNSPECIFIED Status: Acute (9) Hx of coronary artery disease Code(s): Z86.79 - PERSONAL HISTORY OF OTHER DISEASES OF THE CIRCULATORY SYSTEM Status: Acute (10) Hx of deep venous thrombosis Code(s): Z86.718 - PERSONAL HISTORY OF OTHER VENOUS THROMBOSIS AND EMBOLISM Status: Acute (11) Anemia Code(s): D64.9 - ANEMIA, UNSPECIFIED Status: Acute QualifierTitle: Anemia type: due to chronic kidney disease Chronic kidney disease stage: unspecified stage Qualified Code(s): N18.9 - Chronic kidney disease, unspecified; D63.1 - Anemia in chronic kidney disease; D63.1 - Anemia in chronic kidney disease (12) Physical deconditioning Code(s): R53.81 - OTHER MALAISE Status: Acute (13) Constipation Code(s): K59.00 - CONSTIPATION, UNSPECIFIED Status: Acute (14) HTN (hypertension) Code(s): I10 - ESSENTIAL (PRIMARY) HYPERTENSION Status: Acute - Plan Plan: 1)Acute hypoxic respitory failure 2/2 PNA -Requiring oxygen at this time. Does not use O2 at home. On 1 L this morning. Titrated down overnight. O2 sats in Low 90s and 93 -On rocephin and azithromycin for abx coverage at this time. -Repeat CXR shows no real changes. Shows LLL density likely PNA. Also shows some sign of fluid overload. -WBC minimally increased this morning. Could be due to steroid effect -Duonebs Q4 hrs. Prednisone burst. Pulmicort. -Sepsis has since resolved. Vital signs stable overnight -incentive spirometer to help with air movement. -Home O2 test 2) CHF -Pt has hx of CHF -ECHO shows EF of 50-55%. Shows moderate mitral regurgitation -Does not show signs of fluid overload at this time. Lasix being held for now. -Will continue to monitor and tx with lasix if seems to be getting fluid overloaded -Holding home lasix dose this am. 3) CHARMAINE on CKD -CKD stage 4 stable. -Cr improved today after fluids. Tolerating PO. Not fluid overloaded -Nephrology consulted- Dr. Ellis- Will follow recommendations -recommends some outpatient follow up 4) DM2 -Blood sugars elevated at times. Moderate SSI. Levemir 7u. Likely a little more elevated due to steroids -Will continue to monitor and adjust 5) HTN -BP elevated yesterday. Increased carvedilol dose to 25 mg bid yesterday. will see how BP responds today. 6)Hypothyroidism -continue home meds 7) HLD -continue home meds 8)Deconditioning -Pt reports being weak. Does not feel safe going home. -Pt was lying around in bed ill 10 days before admission. -Pt having trouble with getting up. -Rehab screen- medically approved. Awaiting insurance authorization -PT/OT consulted 9)DVT Ppx -Lovenox 10) Constipation -MOM, Dulcolax and Sennokot. Also has been eating prunes. -May add some mag citrate to help or suppository -Willl try some miralax today. No BM seen yesterday. 11) Anemia of Chronic Disease -Hgb a little low. Staying stable -Ferritin high. Iron low. -Supplementing with iron at this time <Aime Garcia - Last Filed: 07/14/17 09:06> Attending Addendum - Attending Addendum I personally evaluated the patient and discussed the management with Dr. Garcia I agree with the History, Examination, Assessment and Plan documented above with any addition or exceptions noted below- Patient feeling better; still with some SOB at times. Afebrile VSS. A/P: 1) LLL Pneumonia- change to po antibiotics ; continue nebs/steroids, 2) DM- improved; continue to adjust insulin; 3) Deconditionindg- patient weak and needing strengthening; wishes to go to facility in [place] to be closer to family. Will notify CM. <Nitza Wyatt - Last Filed: 07/14/17 12:15>
[2017-07-14] MEDS: Levothyroxine Sodium 125 MCG TAB PO SCH (06:22)
[2017-07-14] MEDS: HumaLOG 300 UNITS/3 ML VIAL SC PRN ×2 (06:23→17:18)
[2017-07-14 06:34] LABS: Anion Gap 11 mmol/L (10-20); BUN (Urea Nitrogen) 59 mg/dL (9.8-20.1); Calc. Creatinine Clearance 20 mL/min (70-130); Calcium 8.6 mg/dL (7.8-10.44); Carbon Dioxide 24 mmol/L (23-31); Chloride 106 mmol/L (98-107); Estimated GFR-MDRD 19; Glucose 208 mg/dL (83-110); Potassium 4.7 mmol/L (3.5-5.1); Sodium 136 mmol/L (136-145)
[2017-07-14] MEDS: Budesonide 0.25 MG/2 ML NEB INH SCH ×2 (06:54→19:24)
[2017-07-14] MEDS: Enoxaparin Sodium 40 MG/0.4 ML SYRINGE SC SCH (07:43)
[2017-07-14] MEDS: Aspirin 325 MG TAB PO SCH (07:43)
[2017-07-14] MEDS: Losartan 25 MG TAB PO SCH (07:43)
[2017-07-14] MEDS: Docusate 100 MG CAP PO SCH ×2 (07:43→20:27)
[2017-07-14] MEDS: Ezetimibe 10 MG TAB PO SCH (07:43)
[2017-07-14] MEDS: guaiFENesin/DM ER PO SCH ×2 (07:43→20:27)
[2017-07-14] MEDS: predniSONE 20 MG TAB PO SCH (07:43)
[2017-07-14] MEDS: Ferrous Sulfate 325 MG TAB PO SCH (07:43)
[2017-07-14] MEDS: Carvedilol 25 MG TAB PO SCH ×2 (07:43→16:33)
[2017-07-14] MEDS: Azithromycin 500 MG in Sodium Chloride 0.9% 250 ML 250 ML IVPB SCH (09:15)
[2017-07-14] MEDS: Insulin Detemir 100 UNITS/ML 8 UNITS in Pre-Filled Syringe 1 EACH SC SCH (09:16)
[2017-07-14] MEDS: cefTRIAXone\\ROCEPHIN 1 GM, Syringe 0.4 ML in Sterile Water 9.6 ML SLOW IVP SCH (09:16)
--- NOTE | 2017-07-14 09:49 | PRG ---
DATE OF SERVICE: 07/14/2017 SUBJECTIVE: An 87-year-old female being seen for acute kidney injury. The patient denies any nausea , vomiting, or chest pain. PHYSICAL EXAMINATION: GENERAL: Patient is awake, alert. VITAL SIGNS: Afebrile, pulse 70, breathing at 16, blood pressure 179/71. OBJECTIVE: See above. Awake, alert, in no acute distress. GENERAL APPEARANCE AND MENTAL STATUS: Fair. HEAD/NECK: Normocephalic. Atraumatic. EYES: EOMI. No deformity. EARS: Clear. No ulcers. NOSE: Intact. No lesions. MOUTH: Clear. No discharge. THROAT: Clear. No exudate. LUNGS: Clear. No crackles. CARDIAC: S1, S2. No rub. ABDOMEN: Benign. BS+. GENITALIA/RECTUM: Garner absent. BACK/EXTREMITIES: Edema 0+ Ulcer- NEUROLOGICAL: Alert and motor intact. SKIN: Rash- Bruise- LYMPHATICS: Edema- Ulcer- LABORATORY: Hemoglobin 8.6, creatinine 2.4. ASSESSMENT: 1. Acute kidney injury with chronic kidney disease, stage 4, stable. 2. Hypertension. Start Procardia 30 mg daily. Discussed side effects. 3. Anemia. Continue Epogen. 4. Medications based on GFR are appropriate. The patient will follow up to see me after discharge.
[2017-07-14] MEDS: Atorvastatin Calcium 10 MG TAB PO SCH (20:27)
[2017-07-15] MEDS: Levothyroxine Sodium 125 MCG TAB PO SCH (05:40)
[2017-07-15 05:46] LABS: #Eosinphils 0.2 thou/uL (0.0-0.7); #Lymphocytes 1.5 thou/uL (1.20-3.40); #Monocytes 0.5 thou/uL (0.11-0.59); #Neutrophils 9.8 thou/uL (1.40-6.50); %Basophils 0.3 % (0.0-1.0); %Eosinophils 1.3 % (0.0-10.0); %Lymphocytes 12.6 % (21.0-51.0); %Monocytes 4.1 % (0.0-10.0); %Neutrophils 81.8 % (42.0-75.0); Hemoglobin 9.1 g/dL (12.0-16.0); Mean Corpuscular HGB CONC 31.2 g/dL (32.0-36.0); Mean Corpuscular Hemoglobin 29.6 pg (27.0-31.0); Mean Platelet Volume 7.2 fL (7.4-10.4); Platelet Count 351 thou/uL (130-400); RBC Distribution Width 12.7 % (11.5-14.5); Red Blood Cell (RBC) Count 3.06 mill/uL (4.20-5.40); White Blood Cell (WBC) Count 11.9 thou/uL (4.8-10.8)
--- NOTE | 2017-07-15 06:29 | PDOC.FM ---
- Subjective Subjective: Pt reports not sleeping well at all overnight. Denied any fever or chills. Said she got a little SOB at times. Denies any other acute events overnight. States she still has not had a bowel movement. - Objective Vital Signs & Weight: Vital Signs (12 hours) Temp Pulse Resp BP Pulse Ox 07/15/17 00:00 97.4 F L 63 16 176/70 H 95 07/14/17 20:00 97.7 F 67 16 191/72 H 97 07/14/17 19:21 67 20 97 Weight Admit Weight 72.303 kg Weight 72.303 kg I&O: 07/13/17 07/14/17 07/15/17 06:59 06:59 06:59 Intake Total 2475 1020 Balance 2475 1020 Result Diagrams: 07/15/17 05:06 07/14/17 04:32 <Aime Garcia - Last Filed: 07/15/17 07:29> - Objective Vital Signs & Weight: Vital Signs (12 hours) Temp Pulse Resp BP BP Pulse Ox 07/15/17 10:07 61 180/67 H 07/15/17 08:58 61 180/67 H 07/15/17 08:40 97.6 F 61 18 180/67 H 98 07/15/17 08:00 97.6 F 66 18 93 L 07/15/17 07:14 62 16 96 07/15/17 07:11 62 16 96 07/15/17 04:00 97.7 F 62 18 179/67 H 96 07/15/17 00:00 97.4 F L 63 16 176/70 H 95 Weight Admit Weight 159 lb 6.4 oz Weight 159 lb 6.4 oz I&O: 07/14/17 07/15/17 07/16/17 06:59 06:59 06:59 Intake Total 1020 Balance 1020 Result Diagrams: 07/15/17 05:06 07/14/17 04:32 <Alexandre Peter - Last Filed: 07/15/17 10:49> Phys Exam - Physical Examination HEENT: PERRLA, moist MMs Neck: no nodes, supple, full ROM Respiratory: no wheezing mild rales noted Cardiovascular: RRR, no significant murmur, no rub Gastrointestinal: soft, non-tender, positive bowel sounds Musculoskeletal: no edema, pulses present Neurological: non-focal, moves all 4 limbs Lymphatic: no nodes Psychiatric: normal affect Skin: no rash, normal turgor, cap refill <2 seconds <Aime Garcia - Last Filed: 07/15/17 07:29> Dx/Plan (1) Acute respiratory failure with hypoxia Code(s): J96.01 - ACUTE RESPIRATORY FAILURE WITH HYPOXIA Status: Acute (2) Pneumonia Code(s): J18.9 - PNEUMONIA, UNSPECIFIED ORGANISM Status: Acute (3) Sepsis Code(s): A41.9 - SEPSIS, UNSPECIFIED ORGANISM Status: Resolved (4) CHARMAINE (acute kidney injury) Code(s): N17.9 - ACUTE KIDNEY FAILURE, UNSPECIFIED Status: Acute (5) CKD (chronic kidney disease) Code(s): N18.9 - CHRONIC KIDNEY DISEASE, UNSPECIFIED Status: Chronic (6) Diabetes Code(s): E11.9 - TYPE 2 DIABETES MELLITUS WITHOUT COMPLICATIONS Status: Acute (7) COPD (chronic obstructive pulmonary disease) Status: Acute (8) Hypothyroidism Code(s): E03.9 - HYPOTHYROIDISM, UNSPECIFIED Status: Acute (9) Hx of coronary artery disease Code(s): Z86.79 - PERSONAL HISTORY OF OTHER DISEASES OF THE CIRCULATORY SYSTEM Status: Acute (10) Hx of deep venous thrombosis Code(s): Z86.718 - PERSONAL HISTORY OF OTHER VENOUS THROMBOSIS AND EMBOLISM Status: Acute (11) Anemia Code(s): D64.9 - ANEMIA, UNSPECIFIED Status: Acute QualifierTitle: Anemia type: due to chronic kidney disease Chronic kidney disease stage: unspecified stage Qualified Code(s): N18.9 - Chronic kidney disease, unspecified; D63.1 - Anemia in chronic kidney disease; D63.1 - Anemia in chronic kidney disease (12) Physical deconditioning Code(s): R53.81 - OTHER MALAISE Status: Acute (13) Constipation Code(s): K59.00 - CONSTIPATION, UNSPECIFIED Status: Acute (14) HTN (hypertension) Code(s): I10 - ESSENTIAL (PRIMARY) HYPERTENSION Status: Acute - Plan Plan: 1)Acute hypoxic respitory failure 2/2 PNA -Requiring oxygen at this time. Does not use O2 at home. On 1 L this morning. Will continue to wean off oxygen. -On rocephin and azithromycin for abx coverage at this time. -Repeat CXR shows no real changes. Shows LLL density likely PNA. Also shows some sign of fluid overload. -WBC minimally increased this morning. Again likely related to steroid effect -Duonebs Q4 hrs. Prednisone burst. Pulmicort. -Sepsis has since resolved. Vital signs stable overnight -incentive spirometer to help with air movement. -Home O2 test 2) CHF -Pt has hx of CHF -ECHO shows EF of 50-55%. Shows moderate mitral regurgitation -Does not show signs of fluid overload at this time. Lasix being held for now. -Will continue to monitor and tx with lasix if seems to be getting fluid overloaded -Holding home lasix dose this am. 3) CHARMAINE on CKD -CKD stage 4 stable. -Cr continues to improve. Tolerating PO. Not fluid overloaded -Nephrology consulted- Dr. Ellis- Will follow recommendations -recommends some outpatient follow up 4) DM2 -Blood sugars elevated at times. Moderate SSI. Levemir 7u. Likely a little more elevated due to steroids -Will continue to monitor and adjust 5) HTN -BP elevated yesterday. Increased carvedilol dose to 25 mg bid. BP still elevated. Might need to add on another BP medication to her current regimen. 6)Hypothyroidism -continue home meds 7) HLD -continue home meds 8)Deconditioning -Pt reports being weak. Does not feel safe going home. -Pt was lying around in bed ill 10 days before admission. -Pt having trouble with getting up. -Rehab screen- medically approved. Denied by Insurance -Pt would like to go to [facility]. Discussed this with her yesterday. Am now awaiting placement for her. -PT/OT consulted 9)DVT Ppx -Lovenox 10) Constipation -MOM, Dulcolax and Sennokot. Also has been eating prunes. -Willl try some miralax today. No BM seen yesterday. Will try Lactulose today. 11) Anemia of Chronic Disease -Hgb a little low. Staying stable -Ferritin high. Iron low. -Supplementing with iron at this time <Aime Garcia - Last Filed: 07/15/17 07:29> Attending Addendum - Attending Addendum I personally evaluated the patient and discussed the management with [Jose ] I agree with the History, Examination, Assessment and Plan documented above. Pt was having an episode of SOB. Looked a little fluid overloaded. Will give her a one time dose of lasix IV. BP still elevated after increasing carvedilol yesterday. Will add hydralazine for BP control today. <Alexandre Peter - Last Filed: 07/15/17 10:49>
[2017-07-15] MEDS: Budesonide 0.25 MG/2 ML NEB INH SCH ×2 (07:14→19:00)
[2017-07-15] MEDS ORDERED: Melatonin 3 MG TAB PO PRN (07:30)
[2017-07-15] MEDS: Losartan 25 MG TAB PO SCH (08:58)
[2017-07-15] MEDS: Ezetimibe 10 MG TAB PO SCH (08:58)
[2017-07-15] MEDS: Carvedilol 25 MG TAB PO SCH ×2 (08:58→17:52)
[2017-07-15] MEDS: predniSONE 20 MG TAB PO SCH (08:58)
[2017-07-15] MEDS: Aspirin 325 MG TAB PO SCH (08:58)
[2017-07-15] MEDS: guaiFENesin/DM ER PO SCH ×2 (08:58→20:11)
[2017-07-15] MEDS: Docusate 100 MG CAP PO SCH ×2 (08:59→20:11)
[2017-07-15] MEDS: Ferrous Sulfate 325 MG TAB PO SCH (08:59)
[2017-07-15] MEDS: Insulin Detemir 100 UNITS/ML 8 UNITS in Pre-Filled Syringe 1 EACH SC SCH (08:59)
[2017-07-15] MEDS: Enoxaparin Sodium 40 MG/0.4 ML SYRINGE SC SCH (08:59)
[2017-07-15] MEDS ORDERED: Furosemide 40 MG/4 ML VIAL SLOW IVP SCH (09:00)
[2017-07-15] MEDS ORDERED: Azithromycin 250 MG TAB PO ONE (09:00)
[2017-07-15] MEDS ORDERED: NIFEdipine XL 30 MG TAB PO SCH (09:00)
[2017-07-15] MEDS: cefTRIAXone\\ROCEPHIN 1 GM, Syringe 0.4 ML in Sterile Water 9.6 ML SLOW IVP SCH (09:13)
[2017-07-15] MEDS: hydrALAZINE 10 MG TAB PO SCH ×3 (10:07→20:11)
--- NOTE | 2017-07-15 10:21 | PRG ---
DATE OF SERVICE: 07/15/2017 SUBJECTIVE: An 87-year-old female being seen for acute kidney injury. The patient denies any nausea , vomiting, or chest pain. PHYSICAL EXAMINATION: GENERAL: Patient is awake, alert. VITAL SIGNS: Afebrile, pulse 97, breathing at 16, blood pressure 180/67. HEAD/NECK: Normocephalic. Atraumatic. EYES: EOMI. No deformity. EARS: Clear. No ulcers. NOSE: Intact. No lesions. MOUTH: Clear. No discharge. THROAT: Clear. No exudate. LUNGS: Clear. No crackles. CARDIAC: S1, S2. No rub. ABDOMEN: Benign. BS+. GENITALIA/RECTUM: Garner absent. BACK/EXTREMITIES: Edema 0+ Ulcer- NEUROLOGICAL: Alert and motor intact. SKIN: Rash- Bruise- LYMPHATICS: Edema- Ulcer- LABORATORY DATA: None today. ASSESSMENT AND RECOMMENDATIONS: 1. Chronic kidney disease stage 4, stable. 2. Hypertension. Would recommend increasing Procardia to 60 mg daily. 3. Medications based on glomerular filtration rate are appropriate.
[2017-07-15] MEDS ORDERED: Bisacodyl 10 MG SUPP PR ONE (11:44)
[2017-07-15] MEDS: HumaLOG 300 UNITS/3 ML VIAL SC PRN (17:45)
[2017-07-15] MEDS ORDERED: Bisacodyl 10 MG SUPP PR PRN (19:03)
[2017-07-15] MEDS: Atorvastatin Calcium 10 MG TAB PO SCH (20:11)
[2017-07-16 05:28] LABS: #Lymphocytes 1.4 thou/uL (1.20-3.40); #Monocytes 0.6 thou/uL (0.11-0.59); #Neutrophils 9.8 thou/uL (1.40-6.50); %Basophils 0.3 % (0.0-1.0); %Eosinophils 0.3 % (0.0-10.0); %Lymphocytes 11.6 % (21.0-51.0); %Neutrophils 82.8 % (42.0-75.0); Hemoglobin 9.2 g/dL (12.0-16.0); Mean Corpuscular HGB CONC 32.2 g/dL (32.0-36.0); Mean Corpuscular Hemoglobin 30.1 pg (27.0-31.0); Mean Corpuscular Volume 93.6 fl (81.0-99.0); Mean Platelet Volume 7.4 fL (7.4-10.4); Platelet Count 347 thou/uL (130-400); RBC Distribution Width 12.6 % (11.5-14.5); Red Blood Cell (RBC) Count 3.04 mill/uL (4.20-5.40); White Blood Cell (WBC) Count 11.8 thou/uL (4.8-10.8)
[2017-07-16] MEDS ORDERED: hydrALAZINE 10 MG TAB PO SCH (05:35)
[2017-07-16] MEDS: Levothyroxine Sodium 125 MCG TAB PO SCH (05:39)
--- NOTE | 2017-07-16 05:45 | PDOC.FM ---
- Subjective Subjective: Pt doing better. No acute events of SOB. finally had decent sized bowel movement after enema. Reports doing much better. - Objective Vital Signs & Weight: Vital Signs (12 hours) Temp Pulse Resp BP BP Pulse Ox 07/16/17 04:00 97.5 F L 58 L 16 157/64 H 97 07/16/17 01:49 65 18 07/16/17 00:00 97.7 F 65 18 155/66 H 96 07/15/17 22:26 77 16 97 07/15/17 20:11 66 159/74 H 07/15/17 20:00 97.9 F 66 16 159/74 H 96 Weight Admit Weight 72.303 kg Weight 73.2 kg I&O: 07/14/17 07/15/17 07/16/17 06:59 06:59 06:59 Intake Total 1020 720 Output Total 3 Balance 1020 717 Result Diagrams: 07/16/17 04:29 07/16/17 04:29 <Aime Garcia - Last Filed: 07/16/17 09:33> - Objective Vital Signs & Weight: Vital Signs (12 hours) Temp Pulse Resp BP BP BP Pulse Ox 07/16/17 08:04 98.7 F 62 16 175/75 H 175/75 H 98 07/16/17 08:03 62 175/75 H 07/16/17 08:00 98.7 F 62 16 98 07/16/17 07:11 58 L 16 97 07/16/17 07:09 58 L 16 97 07/16/17 04:00 97.5 F L 58 L 16 157/64 H 97 07/16/17 01:49 65 18 07/16/17 00:00 97.7 F 65 18 155/66 H 96 07/15/17 22:26 77 16 97 Weight Admit Weight 159 lb 6.4 oz Weight 161 lb 6.054 oz I&O: 07/15/17 07/16/17 07/17/17 06:59 06:59 06:59 Intake Total 720 Output Total 3 Balance 717 Result Diagrams: 07/16/17 04:29 07/16/17 04:29 <Alexandre Peter - Last Filed: 07/16/17 09:44> Phys Exam - Physical Examination HEENT: moist MMs Neck: no nodes, supple, full ROM Respiratory: no rales Rales and decreased breaht sounds noted Cardiovascular: RRR, no significant murmur, no rub Gastrointestinal: soft, non-tender, positive bowel sounds mildly distended Musculoskeletal: no edema, pulses present Neurological: non-focal, normal sensation, moves all 4 limbs Lymphatic: no nodes Psychiatric: normal affect Skin: no rash, cap refill <2 seconds <Aime Garcia - Last Filed: 07/16/17 09:33> Dx/Plan (1) Acute respiratory failure with hypoxia Code(s): J96.01 - ACUTE RESPIRATORY FAILURE WITH HYPOXIA Status: Acute (2) Pneumonia Code(s): J18.9 - PNEUMONIA, UNSPECIFIED ORGANISM Status: Acute (3) Sepsis Code(s): A41.9 - SEPSIS, UNSPECIFIED ORGANISM Status: Resolved (4) CHARMAINE (acute kidney injury) Code(s): N17.9 - ACUTE KIDNEY FAILURE, UNSPECIFIED Status: Acute (5) CKD (chronic kidney disease) Code(s): N18.9 - CHRONIC KIDNEY DISEASE, UNSPECIFIED Status: Chronic (6) Diabetes Code(s): E11.9 - TYPE 2 DIABETES MELLITUS WITHOUT COMPLICATIONS Status: Acute (7) COPD (chronic obstructive pulmonary disease) Status: Acute (8) Hypothyroidism Code(s): E03.9 - HYPOTHYROIDISM, UNSPECIFIED Status: Acute (9) Hx of coronary artery disease Code(s): Z86.79 - PERSONAL HISTORY OF OTHER DISEASES OF THE CIRCULATORY SYSTEM Status: Acute (10) Hx of deep venous thrombosis Code(s): Z86.718 - PERSONAL HISTORY OF OTHER VENOUS THROMBOSIS AND EMBOLISM Status: Acute (11) Anemia Code(s): D64.9 - ANEMIA, UNSPECIFIED Status: Acute QualifierTitle: Anemia type: due to chronic kidney disease Chronic kidney disease stage: unspecified stage Qualified Code(s): N18.9 - Chronic kidney disease, unspecified; D63.1 - Anemia in chronic kidney disease; D63.1 - Anemia in chronic kidney disease (12) Physical deconditioning Code(s): R53.81 - OTHER MALAISE Status: Acute (13) Constipation Code(s): K59.00 - CONSTIPATION, UNSPECIFIED Status: Acute (14) HTN (hypertension) Code(s): I10 - ESSENTIAL (PRIMARY) HYPERTENSION Status: Acute - Plan Plan: 1)Acute hypoxic respitory failure 2/2 PNA -Requiring oxygen at this time. Does not use O2 at home. Now on 2 L of oxygen. Could be a component of being in bed and again deconditioning Will continue to wean off oxygen. -On rocephin. Has completed course of Azithromycin -Repeat CXR shows no real changes. Shows LLL density likely PNA. Also shows some sign of fluid overload. -WBC minimally increased this morning. Again likely related to steroid effect -Duonebs Q4 hrs. Prednisone burst. Pulmicort. -Sepsis has since resolved. Vital signs stable overnight -incentive spirometer to help with air movement. -Home O2 test 2) CHF -Pt has hx of CHF -ECHO shows EF of 50-55%. Shows moderate mitral regurgitation -Does not show signs of fluid overload at this time. Got one time dose Lasix yesterday for possibly fluid overload -Pt weighed again and did not show much weight gain. -Will continue to monitor and tx with lasix if seems to be getting fluid overloaded -Holding home lasix dose this am. 3) CHARMAINE on CKD -CKD stage 4 stable. -Cr continues to improve. Tolerating PO. Not fluid overloaded -Nephrology consulted- Dr. Ellis- Will follow recommendations -recommends some outpatient follow up 4) DM2 -Blood sugars elevated at times. Moderate SSI. Levemir 7u. Likely a little more elevated due to steroids -Will continue to monitor and adjust 5) HTN -BP continues to be elevated. Carvedilol increased to 25 mg BID. Hydralazine added to regimen TID. -Neprho- Added nifedipine yesterday and recommends increasing the dose -will continue to monitor BP and adjust medications as needed. will also follow nephro recs 6)Hypothyroidism -continue home meds 7) HLD -continue home meds 8)Deconditioning -Pt reports being weak. Does not feel safe going home. -Pt was lying around in bed ill 10 days before admission. -Pt having trouble with getting up. -Rehab screen- medically approved. Denied by Insurance -Pt would like to go to [facility]. Discussed this with her a few days ago. Am now awaiting placement for her. -PT/OT consulted 9)DVT Ppx -Lovenox 10) Constipation -MOM, Dulcolax and Sennokot, lactulose, Suppository. Also has been eating prunes. -Will try soap suds enema. If no success my need deimpaction and possible assessment for further cause. 11) Anemia of Chronic Disease -Hgb a little low. Staying stable -Ferritin high. Iron low. -Supplementing with iron at this time <Aime Garcia - Last Filed: 07/16/17 09:33> Attending Addendum - Attending Addendum I personally evaluated the patient and discussed the management with Dr. Garcia I agree with the History, Examination, Assessment and Plan documented above. Pt doing better. Still will try and continue to wean off oxygen. BP medications being adjusted. Following recommendations from Nephrology. Pt finally had BM. Will continue with bowel regimen. <Alexandre Peter - Last Filed: 07/16/17 09:44>
[2017-07-16 05:53] LABS: Anion Gap 11 mmol/L (10-20); BUN (Urea Nitrogen) 60 mg/dL (9.8-20.1); Calc. Creatinine Clearance 21 mL/min (70-130); Calcium 8.8 mg/dL (7.8-10.44); Carbon Dioxide 29 mmol/L (23-31); Chloride 102 mmol/L (98-107); Estimated GFR-MDRD 21; Glucose 148 mg/dL (83-110); Potassium 5.2 mmol/L (3.5-5.1); Sodium 137 mmol/L (136-145)
[2017-07-16] MEDS: Budesonide 0.25 MG/2 ML NEB INH SCH ×2 (07:11→18:54)
[2017-07-16] MEDS: Losartan 25 MG TAB PO SCH (08:03)
[2017-07-16] MEDS: guaiFENesin/DM ER PO SCH ×2 (08:03→20:14)
[2017-07-16] MEDS: NIFEdipine XL 60 MG TAB PO SCH (08:03)
[2017-07-16] MEDS: Carvedilol 25 MG TAB PO SCH ×2 (08:04→17:28)
[2017-07-16] MEDS: hydrALAZINE 10 MG TAB PO SCH ×3 (08:04→20:14)
[2017-07-16] MEDS: Ezetimibe 10 MG TAB PO SCH (08:04)
[2017-07-16] MEDS: predniSONE 20 MG TAB PO SCH (08:04)
[2017-07-16] MEDS: Docusate 100 MG CAP PO SCH ×2 (08:04→20:14)
[2017-07-16] MEDS: Ferrous Sulfate 325 MG TAB PO SCH (08:04)
[2017-07-16] MEDS: Aspirin 325 MG TAB PO SCH (08:05)
[2017-07-16] MEDS: Enoxaparin Sodium 40 MG/0.4 ML SYRINGE SC SCH (08:11)
[2017-07-16] MEDS: cefTRIAXone\\ROCEPHIN 1 GM, Syringe 0.4 ML in Sterile Water 9.6 ML SLOW IVP SCH (08:54)
[2017-07-16] MEDS: PRE FILLED SC SCH (08:56)
[2017-07-16] MEDS: INSULIN DETEMIR SC SCH (08:56)
[2017-07-16 10:06] LABS: Potassium 5.1 mmol/L (3.5-5.1)
--- NOTE | 2017-07-16 10:15 | PRG ---
DATE OF SERVICE: 07/16/2017 SUBJECTIVE: This is an 87-year-old female being seen for CKD stage 4. The patient denies any nausea , vomiting, or chest pain. OBJECTIVE: GENERAL: Patient is awake, alert. VITAL SIGNS: Afebrile, pulse 75, breathing at 16, blood pressure 175/75. GENERAL APPEARANCE AND MENTAL STATUS: Fair. HEAD/NECK: Normocephalic. Atraumatic. EYES: EOMI. No deformity. EARS: Clear. No ulcers. NOSE: Intact. No lesions. MOUTH: Clear. No discharge. THROAT: Clear. No exudate. LUNGS: Clear. No crackles. CARDIAC: S1, S2. No rub. ABDOMEN: Benign. BS+. GENITALIA/RECTUM: Garner absent. BACK/EXTREMITIES: Edema 0+ Ulcer- NEUROLOGICAL: Alert and motor intact. SKIN: Rash- Bruise- LYMPHATICS: Edema- Ulcer- LABORATORY: Show hemoglobin 9.2, potassium 5.2, creatinine 2.2. ASSESSMENT 1. Chronic kidney disease stage 4, stable. 2. Acute kidney injury, stable. 3. Hypertension, stable. 4. Hyperkalemia. We will recheck potassium again and if elevated, we will consider bicarbonate, oth er contributing factors to hyperkalemia is losartan, the dose can be decreased to 12.5 daily.
--- NOTE | 2017-07-16 10:30 | RAD ---
CHEST 2 VIEWS: HISTORY: Pneumonia. Dyspnea. COMPARISON: 07/11/17. FINDINGS: Cardiac silhouette is within normal limits. Pulmonary vasculature is upper limits of normal. Medias tinum is midline with aortic calcification and postoperative changes. Ill-defined patchy parenchymal infiltrates are present throughout each lung, more pronounced at each lower lobe and the posterior s egment left upper lobe. A small amount of left pleural fluid is apparent. Lungs are otherwise hyperinflated. IMPRESSION: 1. Multifocal pneumonitis. A small amount of left pleural fluid. 2. Chronic obstructive pulmonary disease. 3. Atherosclerosis. POS: [facility]
[2017-07-16] MEDS: HumaLOG 300 UNITS/3 ML VIAL SC PRN ×2 (12:21→17:29)
[2017-07-16 13:41] LABS: Potassium 5.4 mmol/L (3.5-5.1)
--- NOTE | 2017-07-16 17:23 | CT ---
CT CHEST NONCONTRAST: History: Pneumonia, pleural fluid. FINDINGS: A small amount of bilateral pleural fluid and bibasilar atelectasis are confirmed. Subtle patchy infi ltrates are present at the lateral aspect of each upper and lower lobe. No ill-defined parenchymal ma sses are apparent. Central airways are patent. Lack of contrast limits evaluation for other abnormalities. There is calcification in the arterial st ructures. IMPRESSION: 1. Small bilateral pleural effusions. Multifocal pneumonitis. 2. Atherosclerosis. POS: [facility]
[2017-07-16] MEDS: Atorvastatin Calcium 10 MG TAB PO SCH (20:14)
[2017-07-17 05:56] LABS: #Eosinphils 0.1 thou/uL (0.0-0.7); #Lymphocytes 2.1 thou/uL (1.20-3.40); #Monocytes 0.7 thou/uL (0.11-0.59); #Neutrophils 10.8 thou/uL (1.40-6.50); %Basophils 0.1 % (0.0-1.0); %Eosinophils 0.7 % (0.0-10.0); %Lymphocytes 15.1 % (21.0-51.0); %Monocytes 5.2 % (0.0-10.0); %Neutrophils 78.9 % (42.0-75.0); Hemoglobin 9.1 g/dL (12.0-16.0); Mean Corpuscular HGB CONC 31.8 g/dL (32.0-36.0); Mean Corpuscular Hemoglobin 29.8 pg (27.0-31.0); Mean Corpuscular Volume 93.7 fl (81.0-99.0); Mean Platelet Volume 7.5 fL (7.4-10.4); Platelet Count 365 thou/uL (130-400); RBC Distribution Width 12.5 % (11.5-14.5); Red Blood Cell (RBC) Count 3.06 mill/uL (4.20-5.40); White Blood Cell (WBC) Count 13.7 thou/uL (4.8-10.8)
[2017-07-17] MEDS: Budesonide 0.25 MG/2 ML NEB INH SCH ×2 (06:02→18:31)
[2017-07-17] MEDS: Levothyroxine Sodium 125 MCG TAB PO SCH (06:08)
--- NOTE | 2017-07-17 06:35 | PDOC.FM ---
- Subjective Subjective: Pt reports feeling better. Says breathing is better. Having less cough and wheezing. Denies any acute events of SOB overnight. Denies any other problems at this time. Denies any fever or chills. Says that she still feels constipated. Had 2 BM yesterday. Pt reports getting a rash around her mouth when she eats. Not sure whats causing it. thinks it is a food - Objective MAR Reviewed: Yes Vital Signs & Weight: Vital Signs (12 hours) Temp Pulse Resp BP BP Pulse Ox 07/17/17 06:02 72 14 98 07/17/17 02:29 64 12 92 L 07/16/17 22:22 64 12 92 L 07/16/17 20:14 64 145/76 H 07/16/17 20:00 97.6 F 64 18 145/76 H 92 L 07/16/17 18:54 65 16 98 07/16/17 18:53 65 16 98 Weight Admit Weight 72.303 kg Weight 73.4 kg I&O: 07/15/17 07/16/17 07/17/17 06:59 06:59 06:59 Intake Total 720 1170 Output Total 3 Balance 717 1170 Result Diagrams: 07/17/17 04:33 07/17/17 04:33 Radiology Reviewed by me: Yes Radiology: CXR 07/16: Multifocal pneumonitis. A small amount of left pleural fluid. COPD. Atherosclerosis CT Chest 07/16: Small bilateral pleural effusions. Multifocal pneumonitis. Atherosclerosis <Aime Garcia - Last Filed: 07/17/17 08:35> - Objective Vital Signs & Weight: Vital Signs (12 hours) Temp Pulse Resp BP BP BP Pulse Ox 07/17/17 16:00 97.8 F 65 16 148/56 H 07/17/17 15:44 75 186/75 H 07/17/17 14:06 75 14 93 L 07/17/17 10:19 70 12 98 07/17/17 09:38 59 L 179/78 H 07/17/17 09:35 59 L 179/78 H 07/17/17 08:00 97.4 F L 70 12 98 07/17/17 07:46 97.4 F L 59 L 18 179/78 H 98 07/17/17 06:02 72 14 98 Weight Admit Weight 72.303 kg Weight 73.4 kg I&O: 07/16/17 07/17/17 07/18/17 06:59 06:59 06:59 Intake Total 720 1170 Output Total 3 Balance 717 1170 Result Diagrams: 07/17/17 04:33 07/17/17 04:33 <LeslyMartha - Last Filed: 07/17/17 17:01> Phys Exam - Physical Examination Constitutional: NAD HEENT: PERRLA, moist MMs mild JVD noted Respiratory: no wheezing Mild rales noted Cardiovascular: RRR, no significant murmur, no rub Gastrointestinal: soft, non-tender, positive bowel sounds mildly distended Musculoskeletal: no edema, pulses present Neurological: non-focal, moves all 4 limbs Lymphatic: no nodes Psychiatric: normal affect, A&O x 3 Skin: no rash, normal turgor, cap refill <2 seconds <Aime Garcia - Last Filed: 07/17/17 08:35> Dx/Plan (1) Acute respiratory failure with hypoxia Code(s): J96.01 - ACUTE RESPIRATORY FAILURE WITH HYPOXIA Status: Acute (2) Pneumonia Code(s): J18.9 - PNEUMONIA, UNSPECIFIED ORGANISM Status: Acute (3) Sepsis Code(s): A41.9 - SEPSIS, UNSPECIFIED ORGANISM Status: Resolved (4) CHARMAINE (acute kidney injury) Code(s): N17.9 - ACUTE KIDNEY FAILURE, UNSPECIFIED Status: Acute (5) CKD (chronic kidney disease) Code(s): N18.9 - CHRONIC KIDNEY DISEASE, UNSPECIFIED Status: Chronic (6) Diabetes Code(s): E11.9 - TYPE 2 DIABETES MELLITUS WITHOUT COMPLICATIONS Status: Acute (7) COPD (chronic obstructive pulmonary disease) Status: Acute (8) Hypothyroidism Code(s): E03.9 - HYPOTHYROIDISM, UNSPECIFIED Status: Acute (9) Hx of coronary artery disease Code(s): Z86.79 - PERSONAL HISTORY OF OTHER DISEASES OF THE CIRCULATORY SYSTEM Status: Acute (10) Hx of deep venous thrombosis Code(s): Z86.718 - PERSONAL HISTORY OF OTHER VENOUS THROMBOSIS AND EMBOLISM Status: Acute (11) Anemia Code(s): D64.9 - ANEMIA, UNSPECIFIED Status: Acute QualifierTitle: Anemia type: due to chronic kidney disease Chronic kidney disease stage: unspecified stage Qualified Code(s): N18.9 - Chronic kidney disease, unspecified; D63.1 - Anemia in chronic kidney disease; D63.1 - Anemia in chronic kidney disease (12) Physical deconditioning Code(s): R53.81 - OTHER MALAISE Status: Acute (13) Constipation Code(s): K59.00 - CONSTIPATION, UNSPECIFIED Status: Acute (14) HTN (hypertension) Code(s): I10 - ESSENTIAL (PRIMARY) HYPERTENSION Status: Acute - Plan Plan: 1)Acute hypoxic respitory failure 2/2 PNA -Requiring oxygen at this time. Does not use O2 at home. Now on 2 L of oxygen. Could be a component of being in bed and again deconditioning Will continue to wean off oxygen. -On rocephin. Has completed course of Azithromycin -Repeat CXR shows multifocal PNA, shows minimal Pleural fluid. Nothing seen different on CT. CT ordered as Pt has had slow course of improvement and with chronic smoking history and COPD thought it may assist in dx. Also admission CXR recommended -WBC increasing despite abx. -Duonebs Q4 hrs. Prednisone burst. Pulmicort. -Sepsis has since resolved. Vital signs stable overnight -incentive spirometer to help with air movement. -Home O2 test 2) CHF -Pt has hx of CHF -ECHO shows EF of 50-55%. Shows moderate mitral regurgitation -Does not show signs of fluid overload at this time. -Pt weighed again and did not show much weight gain. -Will continue to monitor and tx with lasix if seems to be getting fluid overloaded. Minimal fluid overload -Will restart home dose of lasix at this time -Repeat Cxray and CT scan does not show any sign of fluid overload 3) CHARMAINE on CKD -CKD stage 4 stable. -Cr continues to improve. Tolerating PO. Not fluid overloaded -Nephrology consulted- Dr. Ellis- Will follow recommendations -recommends some outpatient follow up 4) DM2 -Blood sugars elevated at times. Moderate SSI. Levemir increased to 11u. Likely a little more elevated due to steroids -Will continue to monitor and adjust 5) HTN -BP continues to be elevated. Carvedilol increased to 25 mg BID. Hydralazine added to regimen TID. -Neprho- Added nifedipine yesterday and recommends increasing the dose -will continue to monitor BP and adjust medications as needed. will also follow nephro recs -Losartan decreased due to hyperkalemia. will hold for today. 6)Hypothyroidism -continue home meds 7) HLD -continue home meds 8)Deconditioning -Pt reports being weak. Does not feel safe going home. -Pt was lying around in bed ill 10 days before admission. -Pt having trouble with getting up. -Rehab screen- medically approved. Denied by Insurance -Pt would like to go to [facility]. Discussed this with her a few days ago. Am now awaiting placement for her. -PT/OT consulted 9)DVT Ppx -Lovenox 10) Constipation -MOM, Dulcolax and Sennokot, lactulose, Suppository. Also has been eating prunes. -Soap suds enema produced BM yesterday. -Will continue to monitor for signs of constipation and use medications in bowel regimen as needed. 11) Anemia of Chronic Disease -Hgb a little low. Staying stable -Ferritin high. Iron low. -Supplementing with iron at this time 12)Hyperkalemia -Will continue to monitor BMP. May add kaexylate if needed. Losartan decreased and being held today. -Dr. Ellis consulted- Will follow recs <Aime Garcia - Last Filed: 07/17/17 08:35> Attending Addendum - Attending Addendum I personally evaluated the patient and discussed the management with Dr. Garcia. I agree with the History, Examination, Assessment and Plan documented above with any addition or exceptions noted below. The patient will try to get up to a chair today. Try to wean o2 and f/u with case mgmt on placement. <Martha Grace - Last Filed: 07/17/17 17:01>
[2017-07-17 07:00] LABS: Anion Gap 10 mmol/L (10-20); BUN (Urea Nitrogen) 59 mg/dL (9.8-20.1); Calc. Creatinine Clearance 21 mL/min (70-130); Calcium 8.7 mg/dL (7.8-10.44); Carbon Dioxide 29 mmol/L (23-31); Chloride 100 mmol/L (98-107); Estimated GFR-MDRD 20; Glucose 127 mg/dL (83-110); Potassium 5.1 mmol/L (3.5-5.1); Sodium 134 mmol/L (136-145)
[2017-07-17] MEDS ORDERED: Losartan 25 MG TAB PO SCH (09:00)
[2017-07-17] MEDS: predniSONE 20 MG TAB PO SCH (09:34)
[2017-07-17] MEDS: Ezetimibe 10 MG TAB PO SCH (09:34)
[2017-07-17] MEDS: hydrALAZINE 10 MG TAB PO SCH (09:35)
[2017-07-17] MEDS: Carvedilol 25 MG TAB PO SCH ×2 (09:36→15:45)
[2017-07-17] MEDS: guaiFENesin/DM ER PO SCH ×2 (09:37→20:50)
[2017-07-17] MEDS: Docusate 100 MG CAP PO SCH ×2 (09:37→20:50)
[2017-07-17] MEDS: Ferrous Sulfate 325 MG TAB PO SCH (09:37)
[2017-07-17] MEDS: NIFEdipine XL 60 MG TAB PO SCH (09:38)
[2017-07-17] MEDS: INSULIN DETEMIR SC SCH (09:38)
[2017-07-17] MEDS: Aspirin 325 MG TAB PO SCH (09:38)
[2017-07-17] MEDS: PRE FILLED SC SCH (09:38)
[2017-07-17] MEDS: Enoxaparin Sodium 40 MG/0.4 ML SYRINGE SC SCH (09:39)
[2017-07-17] MEDS: cefTRIAXone\\ROCEPHIN 1 GM, Syringe 0.4 ML in Sterile Water 9.6 ML SLOW IVP SCH (09:39)
[2017-07-17] MEDS: Furosemide 20 MG TAB PO SCH (12:25)
[2017-07-17 13:13] LABS: Albumin-Ur 55.8 % (.); Alpha 1 - Ur 1.1 % (.); Alpha 2 - Ur 9.1 % (.); Gamma-Ur 18.9 % (.); M-Spike,% Not Observed % (Not Observed); Protein, Urine 108.9 mg/dL (Not Estab.)
[2017-07-17] MEDS: hydrALAZINE 25 MG TAB PO SCH ×2 (15:44→20:50)
[2017-07-17] MEDS: HumaLOG 300 UNITS/3 ML VIAL SC PRN (17:16)
--- NOTE | 2017-07-17 17:49 | PRG ---
DATE OF SERVICE: 07/17/2017 NEPHROLOGY PROGRESS NOTE SUBJECTIVE: Patient was seen and examined at bedside and overnight events noted. Patient denies any shortness of breath or chest pain or palpitation. No history of nausea or vomiting or diarrhea or f ever or chills or cramps. OBJECTIVE: GENERAL: This is an elderly female, in no apparent distress. VITAL SIGNS: Temperature 97.8, pulse 60, respiratory 16, blood pressure 148/56. HEENT: Atraumatic, normocephalic. Oral mucosa is moist. NECK: Supple. CARDIOVASCULAR: S1, S2 heard. Rate and rhythm regular. RESPIRATORY: Clear to auscultation. GASTROINTESTINAL: Abdomen is soft. MUSCULOSKELETAL: No tenderness. No edema. DERMATOLOGIC: No skin rash. NEUROLOGIC: Alert and awake and oriented x3. No focal neurologic deficits. Moving all the extremiti es. PSYCHIATRIC: Mood and affect normal. LABORATORY DATA: Potassium is 5.1, BUN is 59, creatinine is 2.2. ASSESSMENT AND PLAN: 1. Acute kidney injury on chronic kidney disease stage 4, slow improvement. We will monitor. 2. Hyperkalemia, better. 3. Hypertension. 4. Edema, controlled. 5. Plan is to monitor renal function closely. Avoid nephrotoxins.
[2017-07-17] MEDS: Atorvastatin Calcium 10 MG TAB PO SCH (20:50)
[2017-07-18 05:36] LABS: #Lymphocytes 1.6 thou/uL (1.20-3.40); #Monocytes 0.6 thou/uL (0.11-0.59); #Neutrophils 9.8 thou/uL (1.40-6.50); %Eosinophils 0.3 % (0.0-10.0); %Lymphocytes 13.3 % (21.0-51.0); %Monocytes 4.8 % (0.0-10.0); %Neutrophils 81.6 % (42.0-75.0); Hemoglobin 9.3 g/dL (12.0-16.0); Mean Corpuscular HGB CONC 31.8 g/dL (32.0-36.0); Mean Corpuscular Hemoglobin 29.6 pg (27.0-31.0); Mean Corpuscular Volume 93.1 fl (81.0-99.0); Mean Platelet Volume 7.7 fL (7.4-10.4); Platelet Count 371 thou/uL (130-400); RBC Distribution Width 12.4 % (11.5-14.5); Red Blood Cell (RBC) Count 3.14 mill/uL (4.20-5.40)
[2017-07-18] MEDS: Levothyroxine Sodium 125 MCG TAB PO SCH (05:36)
[2017-07-18] MEDS: HumaLOG 300 UNITS/3 ML VIAL SC PRN ×2 (05:36→12:46)
--- NOTE | 2017-07-18 06:34 | PDOC.FM ---
- Subjective Subjective: Pt reports doing much better. not on oxygen when went in the room. Says that she is ready to go home. - Objective MAR Reviewed: Yes Vital Signs & Weight: Vital Signs (12 hours) Temp Pulse Resp BP BP Pulse Ox 07/18/17 04:00 97.6 F 62 18 162/83 H 97 07/18/17 00:00 98.0 F 59 L 20 137/69 96 07/17/17 22:36 67 12 95 07/17/17 20:50 67 145/85 H 07/17/17 20:00 97.6 F 67 14 145/85 H 96 Weight Admit Weight 72.303 kg Weight 78.109 kg I&O: 07/16/17 07/17/17 07/18/17 06:59 06:59 06:59 Intake Total 720 1170 1075 Output Total 3 Balance 717 1170 1075 Result Diagrams: 07/18/17 04:24 07/18/17 04:22 Radiology Reviewed by me: Yes (no new imaging to review) <Aime Garcia - Last Filed: 07/18/17 08:27> - Objective Vital Signs & Weight: Vital Signs (12 hours) Temp Pulse Resp BP BP Pulse Ox 07/18/17 12:00 97.6 F 64 16 145/79 H 92 L 07/18/17 10:29 71 16 90 L 07/18/17 08:37 97.6 F 60 18 180/71 H 90 L 07/18/17 08:23 60 180/71 H 07/18/17 08:22 60 180/71 H 07/18/17 08:00 97.6 F 60 18 90 L 07/18/17 07:42 98.1 F 63 18 174/83 H 92 L 07/18/17 07:01 69 18 99 Weight Admit Weight 72.303 kg Weight 78.109 kg I&O: 07/17/17 07/18/17 07/19/17 06:59 06:59 06:59 Intake Total 1170 1075 Balance 1170 1075 Result Diagrams: 07/18/17 04:24 07/18/17 04:22 <Martha Grace - Last Filed: 07/18/17 16:51> Phys Exam - Physical Examination Constitutional: NAD HEENT: PERRLA, moist MMs Neck: no JVD, supple, full ROM Respiratory: no wheezing, no rales, no rhonchi, clear to auscultation bilateral Cardiovascular: RRR, no significant murmur, no rub Gastrointestinal: soft, non-tender, positive bowel sounds mildly distended Musculoskeletal: no edema, pulses present Neurological: non-focal, normal sensation Lymphatic: no nodes Psychiatric: normal affect Skin: no rash, normal turgor, cap refill <2 seconds <Aime Garcia - Last Filed: 07/18/17 08:27> Dx/Plan (1) Acute respiratory failure with hypoxia Code(s): J96.01 - ACUTE RESPIRATORY FAILURE WITH HYPOXIA Status: Acute (2) Pneumonia Code(s): J18.9 - PNEUMONIA, UNSPECIFIED ORGANISM Status: Acute (3) Sepsis Code(s): A41.9 - SEPSIS, UNSPECIFIED ORGANISM Status: Resolved (4) CHARMAINE (acute kidney injury) Code(s): N17.9 - ACUTE KIDNEY FAILURE, UNSPECIFIED Status: Acute (5) CKD (chronic kidney disease) Code(s): N18.9 - CHRONIC KIDNEY DISEASE, UNSPECIFIED Status: Chronic (6) Diabetes Code(s): E11.9 - TYPE 2 DIABETES MELLITUS WITHOUT COMPLICATIONS Status: Acute (7) COPD (chronic obstructive pulmonary disease) Status: Acute (8) Hypothyroidism Code(s): E03.9 - HYPOTHYROIDISM, UNSPECIFIED Status: Acute (9) Hx of coronary artery disease Code(s): Z86.79 - PERSONAL HISTORY OF OTHER DISEASES OF THE CIRCULATORY SYSTEM Status: Acute (10) Hx of deep venous thrombosis Code(s): Z86.718 - PERSONAL HISTORY OF OTHER VENOUS THROMBOSIS AND EMBOLISM Status: Acute (11) Anemia Code(s): D64.9 - ANEMIA, UNSPECIFIED Status: Acute QualifierTitle: Anemia type: due to chronic kidney disease Chronic kidney disease stage: unspecified stage Qualified Code(s): N18.9 - Chronic kidney disease, unspecified; D63.1 - Anemia in chronic kidney disease; D63.1 - Anemia in chronic kidney disease (12) Physical deconditioning Code(s): R53.81 - OTHER MALAISE Status: Acute (13) Constipation Code(s): K59.00 - CONSTIPATION, UNSPECIFIED Status: Acute (14) HTN (hypertension) Code(s): I10 - ESSENTIAL (PRIMARY) HYPERTENSION Status: Acute - Plan Plan: 1)Acute hypoxic respitory failure 2/2 PNA -Requiring oxygen at this time. Does not use O2 at home. Now on 2 L of oxygen. Could be a component of being in bed and again deconditioning Will continue to wean off oxygen. -On rocephin. Has completed course of Azithromycin. will switch to oral medication at this time -Repeat CXR shows multifocal PNA, shows minimal Pleural fluid. Nothing seen different on CT. CT ordered as Pt has had slow course of improvement and with chronic smoking history and COPD thought it may assist in dx. Also admission CXR recommended -WBC decrease today. -Duonebs Q4 hrs. Prednisone burst. Pulmicort. -Sepsis has since resolved. Vital signs stable overnight -incentive spirometer to help with air movement. -Home O2 test 2) CHF -Pt has hx of CHF -ECHO shows EF of 50-55%. Shows moderate mitral regurgitation -Does not show signs of fluid overload at this time. -Pt weighed again and did not show much weight gain. -Will continue to monitor and tx with lasix if seems to be getting fluid overloaded. Minimal fluid overload -Home dose of lasix restarted yesterday -Repeat Cxray and CT scan does not show any sign of fluid overload 3) CHARMAINE on CKD -CKD stage 4 stable. -Cr continues to improve. Tolerating PO. Not fluid overloaded -Nephrology consulted- Dr. Ellis- Will follow recommendations -recommends some outpatient follow up 4) DM2 -Blood sugars elevated at times. Moderate SSI. Levemir increased to 11u. Likely a little more elevated due to steroids -Will continue to monitor and adjust 5) HTN -BP continues to be elevated. Carvedilol increased to 25 mg BID. Hydralazine added to regimen TID. -Neprho- Added nifedipine yesterday and recommends increasing the dose -will continue to monitor BP and adjust medications as needed. will also follow nephro recs -Losartan decreased due to hyperkalemia. will hold for today. 6)Hypothyroidism -continue home meds 7) HLD -continue home meds 8)Deconditioning -Pt reports being weak. Does not feel safe going home. -Pt was lying around in bed ill 10 days before admission. -Pt having trouble with getting up. -Rehab screen- medically approved. Denied by Insurance -Pt would like to go to [facility]. Discussed this with her a few days ago. Am now awaiting placement for her. -PT/OT consulted 9)DVT Ppx -Lovenox 10) Constipation -MOM, Dulcolax and Sennokot, lactulose, Suppository. Also has been eating prunes. -Soap suds enema produced BM yesterday. -Will continue to monitor for signs of constipation and use medications in bowel regimen as needed. 11) Anemia of Chronic Disease -Hgb a little low. Staying stable -Ferritin high. Iron low. -Supplementing with iron at this time 12)Hyperkalemia -Will continue to monitor BMP. May add kaexylate if needed. Losartan decreased and being held. -Dr. Ellis consulted- Will follow recs <Aime Garcia - Last Filed: 07/18/17 08:27> Attending Addendum - Attending Addendum I personally evaluated the patient and discussed the management with Dr. Garcia. I agree with the History, Examination, Assessment and Plan documented above with any addition or exceptions noted below. Patient is off oxygen. Feeling much better. Will d/c to snf. <Martha Grace - Last Filed: 07/18/17 16:51>
[2017-07-18] MEDS: Budesonide 0.25 MG/2 ML NEB INH SCH (07:03)
[2017-07-18 07:27] LABS: Anion Gap 12 mmol/L (10-20); BUN (Urea Nitrogen) 64 mg/dL (9.8-20.1); Calc. Creatinine Clearance 22 mL/min (70-130); Calcium 8.9 mg/dL (7.8-10.44); Carbon Dioxide 31 mmol/L (23-31); Chloride 98 mmol/L (98-107); Estimated GFR-MDRD 20; Glucose 169 mg/dL (83-110); Sodium 136 mmol/L (136-145)
[2017-07-18] MEDS: hydrALAZINE 25 MG TAB PO SCH (08:22)
[2017-07-18] MEDS: NIFEdipine XL 60 MG TAB PO SCH (08:23)
[2017-07-18] MEDS: Ezetimibe 10 MG TAB PO SCH (08:23)
[2017-07-18] MEDS: Ferrous Sulfate 325 MG TAB PO SCH (08:24)
[2017-07-18] MEDS: guaiFENesin/DM ER PO SCH (08:24)
[2017-07-18] MEDS: Docusate 100 MG CAP PO SCH (08:25)
[2017-07-18] MEDS: Carvedilol 25 MG TAB PO SCH (08:25)
[2017-07-18] MEDS: Aspirin 325 MG TAB PO SCH (08:25)
[2017-07-18] MEDS: Furosemide 20 MG TAB PO SCH (08:25)
[2017-07-18] MEDS: INSULIN DETEMIR SC SCH (08:35)
[2017-07-18] MEDS: PRE FILLED SC SCH (08:35)
[2017-07-18 08:38] VITALS: TEMP 97.6
[2017-07-18] MEDS: predniSONE 20 MG TAB PO SCH (08:39)
[2017-07-18] MEDS ORDERED: Enoxaparin Sodium 30 MG/0.3 ML SYRINGE SC SCH (09:00)
[2017-07-18 09:17] LABS: A/G Ratio 0.6 (0.7-1.7); Albumin 2.2 g/dL (2.9-4.4); Alpha 1 0.3 g/dL (0.0-0.4); Beta 1.1 g/dL (0.7-1.3); Gamma 1.1 g/dL (0.4-1.8); Globulin, Total 3.5 g/dL (2.2-3.9); M-Spike Not Observed g/dL (Not Observed)
[2017-07-18 12:45] VITALS: BP 145/79
[2017-07-18] MEDS ORDERED: FLU VACC TS2017-18 (>65YR) 0.5 ML SYRINGE IM ONE (13:00)
--- NOTE | 2017-07-18 14:19 | PRG ---
Patient Name: ROX TRAVIS Date of service: 07/18/2017 Subjective: Patient was seen and examined at bedside and overnight events noted. Patient denies any shortness of breath or chest pain or palpitation. No history of nausea or vomiting or diarrhea or fever or chills or cramps. Objective: General: This is a well-built female in no apparent distress. Vital signs: Temperature 97.6, pulse 60 respiratory 18, blood pressure 180/71. HEENT: Atraumatic, normocephalic. Oral mucosa is moist. Neck: Supple. Cardiovascular: S1 S2 heard. Rate and rhythm regular. Respiratory: Clear to auscultation. Gastrointestinal: Abdomen is soft. Musculoskeletal: No tenderness. No edema. Dermatologic: No skin rash. Neurologic: Alert and awake and oriented X3. No focal neurologic deficits. Moving all the extremit ies. Psychiatric: Mood and affect normal. LABORATORY DATA: Potassium is 5.0, BUN 64, creatinine is 2.27, GFR of 27. ASSESSMENT AND PLAN: 1. Acute kidney injury on chronic kidney disease. Renal function seems to be stable, but base line creatinine. 2. Hyperkalemia. Limit potassium in the diet. 3. Hypertension, stable. 4. Edema. 5. Anemia of chronic disease. 6. Proteinuria, M-spike is negative. 7. Hyperglycemia. Overall, renal function is stable and close monitoring as outpatient. We will follow.
--- NOTE | 2017-07-19 07:45 | DIS-2 ---
DATE OF ADMISSION: 07/10/2017 DATE OF DISCHARGE: 07/18/2017 ADMITTING ATTENDING: Dr. Gage Guevara. DISCHARGE ATTENDING: Dr. Martha Grace. RESIDENTS: Aime Garcia, PGY-1. CONSULTATIONS: Nephrology, Dr. Ellis. Imaging 1. Got an echocardiogram on 07/10/2017, which showed an EF 50% to 55%, normal right ventricular size and function. Left atrium mildly dilated and mild concentric left ventricular hypertrophy. She had a chest x-ray on 07/11/2017, which showed 1 similar appearance to the chest with likely chronic opacity of the lingular, right perihilar region, left lower lobe, given the density of the right hilum. 2. Mild increased interstitial markings likely chronic in nature. We will then get a repeat chest x-ray on 07/16/2017, which would show multifocal pneumonitis with a small amount of left pleural effusion. 3. Chronic obstructive pulmonary disease. 4. Atherosclerosis. IMAGIN. Chest CT and recommendation of the previous x-ray 07/16/2017, which showed 1 small bilateral pleural effusions, multifocal pneumonitis. 2. Atherosclerosis. PRIMARY DIAGNOSES: Include: 1. Acute respiratory failure with hypoxia, secondary to the pneumonia. 2. Sepsis that would resolve upon admission. 3. Acute kidney injury on chronic kidney disease stage 4. 4. Diabetes mellitus type 2. 5. Chronic obstructive pulmonary disease. 6. Hypothyroidism. 7. History of coronary artery disease. 8. History of deep vein thrombosis. 9. Anemia due to chronic disease. 10. Physical deconditioning. 11. Constipation. 12. Hypertension. DISCHARGE MEDICATIONS: Include Levaquin 500 mg p.o. 1 tab to be given on , acetaminophen 650 mg p.o. q.4 hours, Maalox 30 mL p.o. q.6 hours, aspirin 325 mg p.o. daily, atorvastatin 10 mg p.o. at bedtime, bisacodyl 10 mg p.o. daily, budesonide 0.25 mg inhaler b.i.d, carvedilol 25 mg p.o. b.i.d., docusate 100 mg p.o. b.i.d., duloxetine 20 mg p.o. daily, ezetimibe 10 mg p.o. daily, ferrous sulfate 325 mg in the morning, furosemide 20 mg p.o. daily, hydralazine 25 mg p.o. t.i.d., lactulose 30 grams p.o. b.i.d., levothyroxine 12 mcg p.o. daily, melatonin 3 mg p.o. at bedtime, nifedipine 60 mg p.o. daily, ondansetron 4 mg p.o. q.6 hours, and Senokot 2 tabs p.o. at bedtime p.r.n. DISCONTINUED MEDICATIONS: Include losartan and she completed a 5-day course of azithromycin and Rocephin. HISTORY OF PRESENT ILLNESS AND BRIEF HOSPITAL COURSE: This is an 87-year-old female with a 10 day history of being sick mainly lying around in bed having a low back pop. There is shortness of breath continued to get this over the last 2 days, came in reporting having fevers off and on. Denied any urinary symptoms , was reporting cough and runny nose. Has been drinking fluids, is not eating as much. At this time, we found a right lingular pneumonia on the chest x-ray. Admitted her for pneumonia on top of her COPD. We started her on Rocephin and azithromycin. We scheduled DuoNebs q.4 hours due to her COPD. We checked her lactic acid and she was breathing heavily, requiring oxygen, and pulse was little elevated upon admission. Admitted for sepsis. She did resolve immediately. Lactic acid was 7.1. On admission, her white blood cell count was 20.2, it would come down the next day to 13.0, then 15.1 and then 11.3. White blood cells 11.9 on 07/15 and 11.8 on 07/16 and 13.7 on 07/17, and 21.2 on the day of discharge. Also, at this time, during her stay for the acute hypoxic respiratory failure secondary to pneumonia, she came in requiring 3 liters of oxygen. She did not use oxygen at home. Also, probably likely due to part of her deconditioning as she is at home. So during her entire stay, she got Rocephin completing the entire course of Rocephin. She took a long time to recover. In the middle of her stay, she was not really recovering and was not getting off oxygen, and with a history of COPD, we ended up adding a prednisone burst. She would get the prednisone burst and finish it on Monday. We also added budesonide along with her DuoNeb scheduled q.4 hours and continue to watch her. We consulted PT and OT, rehab screen, but the patient did not want to go to rehab, she will need to go back to her home town, but they did not have a rehabilitation unit. Patient finally would wean off oxygen on the day of discharge on 07/18, would no longer require oxygen. The last few days, she has only required 1 liter of oxygen, but patient was not getting up out of bed, likely part of her component towards the end, it was not the pneumonia, but patient not in much activity. Also, there is a concern for her history of chronic heart failure. We get the echo, which showed an ejection fraction of 50% -55%. She never had really any signs of fluid overload, but there were a few times that she got short of breath during her stay that we gave a little dose of Lasix that seemed to help improve her breathing and we will continue to watch her and give her Lasix as needed and towards the end, we decided to start her Lasix back her home dose of Lasix and that seemed to help with her bleeding even though she did not show signs of fluid overload. When she came in, her creatinine was elevated. She was new to the hospital, we did not have a baseline. Creatinine was elevated at 3.20, the GFR was 14 and at this time, she was not fluid overload. We will start her on IV fluids, continue to monitor throughout her stay. We will continue to lower 3.30, 2.91, 2.76, 2.66, 2.40, 2.23, 2.28, 2.37 on the date of discharge. We consulted Nephrology as she had never been worked up for any of these kidney. When she came in, she has CKD 5, but after giving her fluids we found that her baseline was more to be around CKD of stage 4. Also, while she was here, her blood pressures were pretty resistant to medication. She came on losartan 25 mg, carvedilol 12.5 mg and blood pressures were up in the 160s to 170s. Consequently, we will continue to trend her carvedilol. We would start her on nifedipine at the recs of Nephrology. We will start her on hydralazine as well. We would end up starting losartan. On the last few days, she became hyperkalemic with a potassium running to 5.1, 5.2 likely due to her creatinine and due to the losartan. So at this time, we stopped her losartan altogether. She is on the hydralazine, nifedipine and increase her carvedilol. Blood pressure would come down in the 130s to 140s on discharge. Also, during her stay again, patient was not very mobile, was pretty weak and that's why we sent her to the longterm unit, but she was not moving around very well, so she ended up becoming constipated, did not have a bowel movement for the first 5 days. She continued to give her Senokot, MiraLax, lactulose, mag citrate, which she did not tolerate very well. Finally, we gave her suppositories still no bowel movement. We ended up finally having to do a soapsuds enema. She did report having a bowel movement, would continue lactulose and bowel regimen. For the remainder of the time, patient seemed to have trouble with constipation. I think we will resolve when she is getting more rehab and up and moving around. We also got blood cultures never grew anything out. She was flu negative. Also, she is a little bit anemic when she came in. Again, we did not have baseline, but her hemoglobin was sat around 11.4, which dropped into the 8.9, after giving fluids it was 9.1. I think that is more around her baseline. We will check a ferritin and iron which was low at 31. Her TIBC was 169 and her ferritin was 352.57 showing anemia of chronic disease due to the low iron. We did not start her supplement with ferrous sulfate q.a.m. Her BNP also when she came in, upon admission was 1042 as well. We got the echo concern for heart failure with exacerbation, but she did not seem fluid overload , so we went along the lines of more pneumonia causing this illness. Troponins were to be 0.034, 0.053 and then trended back down to 0.037. To be not concerned there was no EKG changes. I think she will have been at home not lying around, has been ill for 10 days, pretty sick. Has a history of smoking, COPD, and this pneumonia just took her out and she was little deconditioned already coming into the hospital and again got more deconditioned while she was in the hospital and it took a longer time to recover. She got a prednisone dose while in the hospital, got IV antibiotics until the day of discharge. We gave her 1 dose of Levaquin to finish off the course. Today, antibiotics with one dose of Levaquin outpatient. We gave her Levaquin spaced out 2 days due to her creatinine status. Again, we found her creatinine to be very low. We consulted Dr. Ellis, so she could go ahead and get set up with kidney doctors and also follow and trend her find out what her baseline creatinine was. They recommend that she follow up for some more kidney testing outpatient. When she came in she said that she was taken off all her diabetes medicines. Her last hemoglobin A1c was 6.4. When we checked it was 6.4 here as well. Glucose was 224, a little elevated where she would require some insulin. We ended up putting her on a basal dose of Levemir around 10 units. We then dropped it down until she got hypoglycemic then put her on 7 units where she stayed pretty stable for the remainder. When she got the steroid burst, her sugars went up a little bit more than 200, but likely due to steroids and continue to monitor. We did not put on metformin due to her creatinine function. We did not send her home on insulin that will be something to monitor and check her sugars on outpatient and determine if she needs further insulin therapy. DISPOSITION: Stable. DISCHARGE LOCATION: longterm unit. ACTIVITY: Activity as tolerated. She will need PT and OT. DIET: Diabetic diet. MTDD
== END 2017-07-18 13:38 | DRG 871 ==
LOC: ERS 10:28 → ERHOLD 11:07 → T4-B 13:54
PROVIDERS: ADMIT Family Medicine; ATTEND Family Medicine
DX: A41.9 Sepsis, unspecified organism (principal); J96.01 Acute respiratory failure with hypoxia; J18.9 Pneumonia, unspecified organism; N17.9 Acute kidney failure, unspecified; E87.2 Acidosis; J44.0 Chronic obstructive pulmonary disease with (acute) lower respiratory infection; E11.22 Type 2 diabetes mellitus with diabetic chronic kidney disease; I13.0 Hypertensive heart and chronic kidney disease with heart failure and stage 1 through stage 4 chronic kidney disease, or unspecified chronic kidney disease; E87.5 Hyperkalemia; N18.4 Chronic kidney disease, stage 4 (severe); J44.1 Chronic obstructive pulmonary disease with (acute) exacerbation; Z66 Do not resuscitate; E78.5 Hyperlipidemia, unspecified; E03.9 Hypothyroidism, unspecified; D63.8 Anemia in other chronic diseases classified elsewhere; F32.9 Major depressive disorder, single episode, unspecified; I25.10 Atherosclerotic heart disease of native coronary artery without angina pectoris; K59.00 Constipation, unspecified; Z86.718 Personal history of other venous thrombosis and embolism; Z87.891 Personal history of nicotine dependence; Z95.1 Presence of aortocoronary bypass graft; Z79.899 Other long term (current) drug therapy
CPT/HCPCS: 36415; 36416; 71046; 71250; 76770; 80048; 80053; 81001; 82570; 82728; 83036; 83540; 83550; 83605; 83735; 84100; 84156; 84165; 84166; 84300; 85025; 87899; 90471; 90682; 93005; 93010; 93306; 94640; A4216; G0008; G8978-GP-CJ; G8979-GP-CI; G8987-GO-CK; G8988-GO-CI; J0456; J0696; J1650; J1815; J1940; J7050; J7506; J7611; J7620; J7626; Q2036

== ENCOUNTER 2017-09-29 14:20 | Inpatient (IN) | payer MEDICARE, MEDICAID ==
[2017-09-29 15:34] LABS: Anion Gap 16 mmol/L (10-20); BUN (Urea Nitrogen) 78 mg/dL (9.8-20.1); Calc. Creatinine Clearance 0 mL/min (70-130); Calcium 9.1 mg/dL (7.8-10.44); Carbon Dioxide 22 mmol/L (23-31); Chloride 100 mmol/L (98-107); Estimated GFR-MDRD 9; Glucose 114 mg/dL (83-110); Potassium 4.3 mmol/L (3.5-5.1); Sodium 134 mmol/L (136-145)
[2017-09-29 15:45] LABS: CKMB 4.1 ng/mL (0-6.6); Troponin I 0.052 ng/mL (< 0.028)
--- NOTE | 2017-09-29 16:22 | PDOC.FPRHP ---
- History of Present Illness Chief Complaint: N/V History of Present Illness: 87 y/o F with PMHx of DM2, HTN, CKDIV, CAD who presented to the [facility] ED due to N/V. She reports that she has been unable to keep anything except water down for the past 4 days. She has had several episodes of vomiting per day and decreased appetite due to her upset stomach. She denies any abdominal pain, diarrhea, hematemesis. She reports that she has been drinking an adequate amount of fluid during this time and that she hasn't had any decrease in her amount of urination. She reports feeling confused, but cannot specify how she is confused. She is A&Ox3. She had a recent pneumonia and reports that she has had a persistent cough since this that is productive, but she denies any fevers or SOB. ED Course: The patient was evaluated in the [facility] ED and given 500mL NS and zofran and then transferred from the [facility] ED for concern for acute renal failure. She was then evaluated in the ED here by Dr. Galaviz and given 1L NS. - Allergies/Adverse Reactions Allergies Allergy/AdvReac Type Severity Reaction Status Date / Time Sulfa (Sulfonamide Allergy Verified 09/29/17 21:40 Antibiotics) - Home Medications Medication Instructions Recorded Confirmed Type Levothyroxine Sodium 112 mcg PO DAILY 07/10/17 09/30/17 History Acetaminophen [Tylenol Regular 650 mg PO Q4H PRN tab 07/18/17 09/30/17 Rx Strength] Aluminum & Magnesium Hydroxide 30 ml PO Q6H PRN udcup 07/18/17 09/30/17 Rx [Maalox] Aspirin 325 mg PO DAILY tab 07/18/17 09/30/17 Rx Bisacodyl [Dulcolax] 10 mg MS DAILYPRN PRN supp 07/18/17 09/30/17 Rx Melatonin 3 mg PO HS PRN tab 07/18/17 09/30/17 Rx Ondansetron [Zofran ODT] 4 mg PO Q6H PRN tab 07/18/17 09/30/17 Rx Sennosides [Senokot] 2 tab PO HSPRN PRN tab 07/18/17 09/30/17 Rx Amlodipine Besylate [amLODIPine 10 mg PO DAILY 09/30/17 09/30/17 History Besylate] Carvedilol [Coreg] 12.5 mg PO BID 09/30/17 09/30/17 History Citalopram [CeleXA] 10 mg PO DAILY 09/30/17 09/30/17 History Losartan Potassium 25 mg PO DAILY 09/30/17 09/30/17 History - History PMHx: 1. DM2 2. CKD IV 3. HTN 4. HLD 5. CAD - s/p 2 CO's 6. h/o DVT 7. Hypothyroidism PSHx: 1. Bilateral Knee sx 2. x2 3. 3v CABG FHx: Mom - some type of female cancer, Dad - Lung cancer Social: Former tobacco use, quit 11 years ago (40+ pack year smoking hx). Denies EtOH or drug use. Lives with [id number], but is planning to go to a care home soon - Review of Systems General: reports: weight/appetite/sleep changes (Decreased appetite due to N/V) . denies: fever/chills Eyes: denies: eye pain, vision changes ENT: denies: nasal congestion, rhinorrhea Respiratory: reports: cough (Productive cough for several weeks since PNA). denies: shortness of breath Cardiovascular: denies: chest pain, edema Gastrointestinal: reports: nausea, vomiting. denies: diarrhea, constipation, abdominal pain, GI bleeding Genitourinary: denies: dysuria, polyuria Skin: denies: rashes, lesions Musculoskeletal: denies: pain, tenderness, stiffness Neurological: denies: numbness Psychological: denies: anxiety, depression - Vital signs BP: 172/68 HR: 55 RR: 18 Tmax: 97.6 Pox: 94% on RA Wt: 68kg - Physical Exam Constitutional: NAD, awake, alert and oriented, well developed HEENT: normocephalic and atraumatic, PERRLA, EOMI, conjunctiva clear, grossly normal vision, oropharynx clear, other (mildly dry mucous membranes) Neck: supple, FROM, no LAD -Heart: Bradycardic, regular rhythm, 4/6 systolic murmur, 2+ radial and pedal pulses, no peripheral edema Lungs: no respiratory distress, good air movement, no wheezing, no retractions, other (Rales in LLL) Abdomen: soft, non-tender, bowel sounds present, no masses/distention Musculoskeletal: normal structure, normal tone Neurological: no focal deficit, CN II-XII intact, other (A&Ox3) Skin: good turgor, capillary refill <2 seconds Psychiatric: normal mood and affect, good judgment and insight, intact recent and remote memory FMR H&P: Results - Labs Result Diagrams: 09/30/17 04:40 09/30/17 04:40 Lab results: Sodium 134 mmol/L (136-145) L 09/29/17 15:11 Potassium 4.3 mmol/L (3.5-5.1) 09/29/17 15:11 Chloride 100 mmol/L (98-107) 09/29/17 15:11 Carbon Dioxide 22 mmol/L (23-31) L 09/29/17 15:11 BUN 78 mg/dL (9.8-20.1) H 09/29/17 15:11 Creatinine 4.84 mg/dL (0.6-1.1) H 09/29/17 15:11 Glucose 114 mg/dL (83-110) H 09/29/17 15:11 Calcium 9.1 mg/dL (7.8-10.44) 09/29/17 15:11 CK-MB (CK-2) 4.1 ng/mL (0-6.6) 09/29/17 15:11 Laboratory Tests 09/29/17 09/29/17 09/29/17 12:15 12:15 12:15 WBC 7.5 Hgb 9.9 L Hct 30.5 L Plt Count 214 Sodium 135 L Potassium 4.2 Chloride 98 Carbon Dioxide 22 L BUN 80 H Creatinine 5.18 H Estimated GFR (MDRD) 8 Glucose 155 H Calcium 9.1 Total Bilirubin 0.5 AST 20 ALT 9 Alkaline Phosphatase 58 CK-MB (CK-2) 4.1 Troponin I 0.067 H B-Natriuretic Peptide Lipase 30 - EKG Interpretation EKG: Sinus bradycardia FMR H&P: A/P - Problem List (1) Acute renal failure Current Visit: Yes Status: Acute Qualifiers: Acute renal failure type: unspecified Qualified Code(s): N17.9 - Acute kidney failure, unspecified (2) CHARMAINE (acute kidney injury) Current Visit: No Status: Acute Code(s): N17.9 - ACUTE KIDNEY FAILURE, UNSPECIFIED (3) Anemia Current Visit: No Status: Acute Code(s): D64.9 - ANEMIA, UNSPECIFIED Qualifiers: Anemia type: due to chronic kidney disease Chronic kidney disease stage: stage 4 (severe) Qualified Code(s): N18.4 - Chronic kidney disease, stage 4 ( severe); D63.1 - Anemia in chronic kidney disease; D63.1 - Anemia in chronic kidney disease (4) Diabetes Current Visit: No Status: Acute Code(s): E11.9 - TYPE 2 DIABETES MELLITUS WITHOUT COMPLICATIONS Qualifiers: Diabetes mellitus type: type 2 Diabetes mellitus group home insulin use: without group home use Diabetes mellitus complication status: with kidney complications Diabetes mellitus complication detail: with nephropathy Qualified Code(s): E11.21 - Type 2 diabetes mellitus with diabetic nephropathy (5) HTN (hypertension) Current Visit: No Status: Acute Code(s): I10 - ESSENTIAL (PRIMARY) HYPERTENSION Qualifiers: Hypertension type: essential hypertension Qualified Code(s): I10 - Essential (primary) hypertension (6) Hx of coronary artery disease Current Visit: No Status: Acute Code(s): Z86.79 - PERSONAL HISTORY OF OTHER DISEASES OF THE CIRCULATORY SYSTEM (7) Hx of deep venous thrombosis Current Visit: No Status: Acute Code(s): Z86.718 - PERSONAL HISTORY OF OTHER VENOUS THROMBOSIS AND EMBOLISM (8) Hypothyroidism Current Visit: No Status: Acute Code(s): E03.9 - HYPOTHYROIDISM, UNSPECIFIED Qualifiers: Hypothyroidism type: acquired Qualified Code(s): E03.9 - Hypothyroidism, unspecified (9) Sinus bradycardia Current Visit: Yes Status: Acute Code(s): R00.1 - BRADYCARDIA, UNSPECIFIED - Plan Acute Renal Failure on CKD IV Patient presented to [facility] ED with BUN 80, Cr 5.18, GFR 8. She had been vomiting for the past 4 days so this could be 2/2 dehydration. She is s/p 2L NS fluid boluses in the ED. -Admit to tele -Dr. Ellis with nephrology has been consulted, appreciate recs -NS @ 115 -Monitor renal function -Renal diet -Avoid nephrotoxic agents -Check FeNa Sinus Bradycardia Patient on carvedilol at home -Will monitor -Hold BB for now and monitor on tele DM2 Patient's most recent A1c was controlled. -Accuchecks ACHS -Mild SSI HTN Patient had elevated BP's initially in the ED. -Restart home meds -Monitor closely HLD -Will hold home med for now CAD s/p 3v CABG -Continue aspirin Hypothyroidism Patient unsure of dose of medication. Most recent TSH was 10. Medication dose was likely changed. -Recheck TSH -Med rec VTE ppx: Heparin Code Status: DNR Disposition/LOS: Admit to tele, length of stay likely greater than 2 days FMR H&P: Upper Level - Pertinent history 87 yo with CKD presents with significant NV and for 3 days. She has had poor oral intake over this time. Denies fever, abdominal pain and dark stools. Still making urine, but less than usual. - Pertinent findings Gen: WD/WN female in no acute distress, moves around bed with no pain HEENT: NC/AT, DANIEL,EOMI, MMM Resp: CTA, normal work of breathing CV: RRR, normal S1, S2, no murmur ABD: Soft nontender, nondistended. No CVA tenderness Extremities: no edema, pulses 2+ Psych: calm, normal affect and mood Neuro: No focal defecits. CN intact, normal strength and sensation - Plan Date/Time: 09/29/17 1620 ISalas, have evaluated this patient and agree with findings/plan as outlined by business analytics intern resident. Pertinent changes/additions are listed here. 1. Acute Renal Failure on CKD IV- Baseline Cr and BUn are 3 and 50. patient presents with CHARMAINE, likely pre renal from intractable NV. will replete fluids, consult nephro, and monitor. 2. Sinus Bradycardia- aympptomatic now from this, but will hold carvedilol. 3. DM2- home meds and SSI 4. HTN- hypertensive, likely beyond home levels but unclear. restart home meds save carvedilol and use hydralazine for very high values/ 5. CAD and CABG- home aspirin 6. Hypothyroidism- check TSH and reach out to pharmacy for correct med rec. Attending Addendum - Attending Addendum Date/Time: 09/30/17 1025 I personally evaluated the patient and discussed the management with Dr. Soria I agree with the History, Examination, Assessment and Plan documented above with any addition or exceptions noted below. The patient was admitted with CHARMAINE on CKD IV due to dehydration from nausea and vomiting for 4 days. We will give her fluids as she tolerates and avoid nephrotoxic agents. Nephrology has been consulted, will follow their recommendations.
[2017-09-29] MEDS ORDERED: Ondansetron HCl/PF 4 MG/2 ML Vial IVP PRN (16:51)
[2017-09-29] MEDS ORDERED: Ondansetron ODT 4 MG TAB PO PRN (16:51)
[2017-09-29 17:48] LABS: Magnesium 2.1 mg/dL (1.6-2.6); Phosphorus 6.4 mg/dL (2.3-4.7)
[2017-09-29] MEDS ORDERED: Dextrose 5% in Water 1,000 ML IV PRN (18:37)
[2017-09-29] MEDS ORDERED: Dextrose 50% Abboject 50 ML SYRINGE SLOW IVP PRN (18:37)
[2017-09-29] MEDS ORDERED: HumaLOG 300 UNITS/3 ML VIAL SC PRN (18:37)
[2017-09-29] MEDS ORDERED: hydrALAZINE 20 MG/ML VIAL SLOW IVP SCH (18:45)
[2017-09-29 18:46] VITALS: BMI 24.4
[2017-09-29 19:03] LABS: Troponin I 0.059 ng/mL (< 0.028)
[2017-09-29] MEDS: Sodium Chloride 0.9% 1,000 ML IV SCH (19:25)
[2017-09-29 22:07] LABS: Troponin I 0.059 ng/mL (< 0.028)
[2017-09-29] MEDS: Heparin 5,000 UNITS/ML VIAL SC SCH (22:58)
[2017-09-30 01:12] LABS: Troponin I 0.071 ng/mL (< 0.028)
--- NOTE | 2017-09-30 03:07 | CON ---
DATE OF CONSULTATION: 09/29/2017 CONSULTING PHYSICIAN: Dr. Soria. REASON FOR CONSULTATION: Acute kidney injury. REASON FOR ADMISSION: Nausea and vomiting. HISTORY OF PRESENT ILLNESS: This is 87-year-old female with history of type 2 diabetes; hypertension ; CKD, stage 4; coronary artery disease; who came to the hospital with nausea and vomiting. Nephrolo gy consulted for acute kidney injury. Baseline creatinine is around 2-3. It was found to be 4.5. T he patient said that she has been having nausea and not able to keep anything down. Most likely bigg ent is volume depleted and getting admitted. No diarrhea, no abdominal pain, no chest pain, no nause a, or palpitation reported. No shortness of breath. PAST MEDICAL HISTORY: Positive for type 2 diabetes; hypertension; chronic kidney disease, stage 4; h yperlipidemia; coronary artery disease; DVT; hypothyroidism. PAST SURGICAL HISTORY: Bilateral knee surgery; ; and CABG. HOME MEDICATIONS: Duloxetine, Lasix, ezetimibe, levothyroxine, Maalox, aspirin, atorvastatin, carved ilol, Colace, Zetia, Feosol, Lasix, Levaquin, nifedipine, hydralazine. ALLERGIES: SULFA. SOCIAL HISTORY: Quit smoking 11 years back. No alcohol or drug abuse. FAMILY HISTORY: Positive for lung cancer. REVIEW OF SYSTEMS: The following complete review of systems was negative, unless otherwise mentioned in the HPI or below: Constitutional: Weight loss or gain, ability to conduct usual activities. Sk in: Rash, itching. Eyes: Double vision, pain. ENT/Mouth: Nose bleeding, neck stiffness, pain, te nderness. Cardiovascular: Palpitations, dyspnea on exertion, orthopnea. Respiratory: Shortness of breath, wheezing, cough, hemoptysis, fever, or night sweats. Gastrointestinal: Poor appetite, abdo marisol pain, heartburn, nausea, vomiting, constipation, or diarrhea. Genitourinary: Urgency, frequen cy, dysuria, nocturia. Musculoskeletal: Pain, swelling. Neurologic/Psychiatric: Anxiety, depressi on. Allergy/Immunologic: Skin rash, bleeding tendency. PHYSICAL EXAMINATION: GENERAL: This is a well-built female in no apparent distress. VITAL SIGNS: Temperature 97.6, pulse 55, respiratory rate 18, blood pressure 117/68. HEENT: Atraumatic, normocephalic. Oral mucosa is moist. NECK: Supple, no masses. CARDIOVASCULAR: S1, S2 heard. Rate and rhythm regular. RESPIRATORY: Clear. ABDOMEN: Soft. MUSCULOSKELETAL: A 1+ edema. DERMATOLOGIC: No rash. NEUROLOGIC: Alert, awake. PSYCHIATRIC: Mood and affect normal. LABORATORY DATA: Creatinine is 4.8, bicarbonate is 22, potassium 4.7. ASSESSMENT AND PLAN: 1. Acute kidney injury on chronic kidney disease stage, 4. Renal function most likely from volume d epletion. Agree with hydration as tolerated. 2. Edema, controlled. 3. Hypertension, stable. 4. Anemia. 5. Hyponatremia. Continue hydration, avoid nephrotoxins. We will follow. Renally dose all the medicines. Thank you for the consult.
[2017-09-30 05:03] LABS: #Eosinphils 0.2 thou/uL (0.0-0.7); #Lymphocytes 2.2 thou/uL (1.20-3.40); #Monocytes 0.4 thou/uL (0.11-0.59); #Neutrophils 3.4 thou/uL (1.40-6.50); %Basophils 0.6 % (0.0-1.0); %Eosinophils 2.5 % (0.0-10.0); %Lymphocytes 35.6 % (21.0-51.0); %Monocytes 6.9 % (0.0-10.0); %Neutrophils 54.5 % (42.0-75.0); Hemoglobin 9.9 g/dL (12.0-16.0); Mean Corpuscular HGB CONC 32.6 g/dL (32.0-36.0); Mean Corpuscular Hemoglobin 29.3 pg (27.0-31.0); Mean Corpuscular Volume 90.1 fl (81.0-99.0); Mean Platelet Volume 7.9 fL (7.4-10.4); Platelet Count 205 thou/uL (130-400); RBC Distribution Width 13.3 % (11.5-14.5); Red Blood Cell (RBC) Count 3.37 mill/uL (4.20-5.40); White Blood Cell (WBC) Count 6.1 thou/uL (4.8-10.8)
[2017-09-30 05:19] LABS: Anion Gap 10 mmol/L (10-20); BUN (Urea Nitrogen) 76 mg/dL (9.8-20.1); Calc. Creatinine Clearance 10 mL/min (70-130); Calcium 8.4 mg/dL (7.8-10.44); Carbon Dioxide 25 mmol/L (23-31); Chloride 105 mmol/L (98-107); Estimated GFR-MDRD 9; Glucose 111 mg/dL (83-110); Potassium 3.9 mmol/L (3.5-5.1); Sodium 136 mmol/L (136-145)
[2017-09-30] MEDS: Sodium Chloride 0.9% 1,000 ML IV SCH ×3 (05:57→16:28)
--- NOTE | 2017-09-30 07:47 | PDOC.FM ---
- Subjective Subjective: Patient doing well this AM. She has been tolerating more PO. She denies any further N/V. She reports that her cough has improved some. She denies any swelling in her legs. - Objective MAR Reviewed: Yes Vital Signs & Weight: Vital Signs (12 hours) Temp Pulse Resp BP Pulse Ox 09/30/17 04:00 98.4 F 65 12 158/67 H 94 L 09/29/17 20:30 97.4 F L 63 12 130/60 94 L 09/29/17 20:00 97.4 F L 63 12 130/60 94 L 09/29/17 19:52 94 L Weight Weight 69.127 kg Result Diagrams: 09/30/17 04:40 09/30/17 04:40 <Danna Soria - Last Filed: 09/30/17 07:44> - Objective Vital Signs & Weight: Vital Signs (12 hours) Temp Pulse Resp BP Pulse Ox 09/30/17 07:22 98.1 F 62 16 169/72 H 94 L 09/30/17 04:00 98.4 F 65 12 158/67 H 94 L Weight Weight 152 lb 6.4 oz Result Diagrams: 09/30/17 04:40 09/30/17 04:40 <Alexandre Peter - Last Filed: 09/30/17 10:28> Phys Exam - Physical Examination Constitutional: NAD HEENT: moist MMs Respiratory: no wheezing, no rales, no rhonchi, clear to auscultation bilateral Cardiovascular: RRR, no rub 4/6 systolic murmur Gastrointestinal: soft, non-tender, no distention, positive bowel sounds Musculoskeletal: no edema, pulses present Neurological: non-focal, moves all 4 limbs Psychiatric: normal affect, A&O x 3 Skin: normal turgor, cap refill <2 seconds <Danna Soria - Last Filed: 09/30/17 07:44> Dx/Plan (1) Acute renal failure Status: Acute QualifierTitle: Acute renal failure type: unspecified Qualified Code(s): N17.9 - Acute kidney failure, unspecified (2) CHARMAINE (acute kidney injury) Code(s): N17.9 - ACUTE KIDNEY FAILURE, UNSPECIFIED Status: Acute (3) Anemia Code(s): D64.9 - ANEMIA, UNSPECIFIED Status: Acute QualifierTitle: Anemia type: due to chronic kidney disease Chronic kidney disease stage: stage 4 (severe) Qualified Code(s): N18.4 - Chronic kidney disease, stage 4 (severe); D63.1 - Anemia in chronic kidney disease; D63.1 - Anemia in chronic kidney disease (4) Diabetes Code(s): E11.9 - TYPE 2 DIABETES MELLITUS WITHOUT COMPLICATIONS Status: Acute QualifierTitle: Diabetes mellitus type: type 2 Diabetes mellitus intermediate frame tender insulin use: without halfway use Diabetes mellitus complication status : with kidney complications Diabetes mellitus complication detail: with nephropathy Qualified Code(s): E11.21 - Type 2 diabetes mellitus with diabetic nephropathy (5) HTN (hypertension) Code(s): I10 - ESSENTIAL (PRIMARY) HYPERTENSION Status: Acute QualifierTitle: Hypertension type: essential hypertension Qualified Code( s): I10 - Essential (primary) hypertension (6) Hx of coronary artery disease Code(s): Z86.79 - PERSONAL HISTORY OF OTHER DISEASES OF THE CIRCULATORY SYSTEM Status: Acute (7) Hx of deep venous thrombosis Code(s): Z86.718 - PERSONAL HISTORY OF OTHER VENOUS THROMBOSIS AND EMBOLISM Status: Acute (8) Hypothyroidism Code(s): E03.9 - HYPOTHYROIDISM, UNSPECIFIED Status: Acute QualifierTitle: Hypothyroidism type: acquired Qualified Code(s): E03.9 - Hypothyroidism, unspecified (9) Sinus bradycardia Code(s): R00.1 - BRADYCARDIA, UNSPECIFIED Status: Acute - Plan Plan: Acute Renal Failure on CKD IV Patient presented to [facility] ED with BUN 80, Cr 5.18, GFR 8. She had been vomiting for the past 4 days so this could be 2/2 dehydration. She is s/p 2L NS fluid boluses in the ED. Cr improved today to 4.54 with GFR of 9. -Admit to tele -Dr. Ellis with nephrology has been consulted, appreciate recs -NS @ 125 -Monitor renal function -Renal diet -Avoid nephrotoxic agents -Check FeNa Sinus Bradycardia Patient on carvedilol at home -Will monitor -Hold BB for now and monitor on tele DM2 Patient's most recent A1c was controlled. -Accuchecks ACHS -Mild SSI HTN Patient had elevated BP's initially in the ED. Have been controlled since admission -Restart home meds except for Carvedilol -Monitor closely HLD -Will hold home med for now CAD s/p 3v CABG -Continue aspirin Hypothyroidism Patient unsure of dose of medication. Most recent TSH was 10. Medication dose was likely changed. Her TSH now is 17.7. -Will try to figure out most recent medication dose. And will increase dose <Danna Soria - Last Filed: 09/30/17 07:44> (1) Acute renal failure Status: Acute Qualifiers: Acute renal failure type: unspecified Qualified Code(s): N17.9 - Acute kidney failure, unspecified (2) CHARMAINE (acute kidney injury) Code(s): N17.9 - ACUTE KIDNEY FAILURE, UNSPECIFIED Status: Acute (3) Anemia Code(s): D64.9 - ANEMIA, UNSPECIFIED Status: Acute Qualifiers: Anemia type: due to chronic kidney disease Chronic kidney disease stage: stage 4 (severe) Qualified Code(s): N18.4 - Chronic kidney disease, stage 4 ( severe); D63.1 - Anemia in chronic kidney disease; D63.1 - Anemia in chronic kidney disease (4) Diabetes Code(s): E11.9 - TYPE 2 DIABETES MELLITUS WITHOUT COMPLICATIONS Status: Acute Qualifiers: Diabetes mellitus type: type 2 Diabetes mellitus halfway insulin use: without intermediate frame tender use Diabetes mellitus complication status: with kidney complications Diabetes mellitus complication detail: with nephropathy Qualified Code(s): E11.21 - Type 2 diabetes mellitus with diabetic nephropathy (5) HTN (hypertension) Code(s): I10 - ESSENTIAL (PRIMARY) HYPERTENSION Status: Acute Qualifiers: Hypertension type: essential hypertension Qualified Code(s): I10 - Essential (primary) hypertension (6) Hx of coronary artery disease Code(s): Z86.79 - PERSONAL HISTORY OF OTHER DISEASES OF THE CIRCULATORY SYSTEM Status: Acute (7) Hx of deep venous thrombosis Code(s): Z86.718 - PERSONAL HISTORY OF OTHER VENOUS THROMBOSIS AND EMBOLISM Status: Acute (8) Hypothyroidism Code(s): E03.9 - HYPOTHYROIDISM, UNSPECIFIED Status: Acute Qualifiers: Hypothyroidism type: acquired Qualified Code(s): E03.9 - Hypothyroidism, unspecified (9) Sinus bradycardia Code(s): R00.1 - BRADYCARDIA, UNSPECIFIED Status: Acute <Alexandre Peter - Last Filed: 09/30/17 10:28> Attending Addendum - Attending Addendum Date/Time: 09/30/17 4727 I personally evaluated the patient and discussed the management with Dr. Soria I agree with the History, Examination, Assessment and Plan documented above with any addition or exceptions noted below. The patient's creatinine is improved this morning after fluids. She is still in acute renal failure with creatinine of 4.54 and GFR of 9. Will continue to give her fluids and follow nephrology's recommendations. <Alexandre Peter - Last Filed: 09/30/17 10:28>
[2017-09-30 08:30] LABS: CKMB 4.2 ng/mL (0-6.6); Troponin I 0.059 ng/mL (< 0.028)
[2017-09-30] MEDS: Heparin 5,000 UNITS/ML VIAL SC SCH ×3 (10:05→21:13)
[2017-09-30] MEDS: Aspirin 325 mg Enteric Coated Tablet PO SCH (10:05)
[2017-09-30] MEDS ORDERED: Amlodipine 10 MG TAB PO SCH (10:30)
--- NOTE | 2017-09-30 13:20 | PRG ---
DATE OF SERVICE: 09/30/2017 SUBJECTIVE: Patient was seen and examined at bedside and overnight events noted. Patient denies any shortness of breath or chest pain or palpitation. No history of nausea or vomiting or diarrhea or f ever or chills or cramps. OBJECTIVE: GENERAL: This is an elderly white female in no apparent distress. VITAL SIGNS: Temperature 98.1, pulse 62, respiratory 16, blood pressure 169/72. HEENT: Atraumatic, normocephalic. Oral mucosa is moist. NECK: Supple. CARDIOVASCULAR: S1, S2 heard. Rate and rhythm regular. RESPIRATORY: Clear to auscultation. GASTROINTESTINAL: Abdomen is soft. MUSCULOSKELETAL: No tenderness, no edema. DERMATOLOGIC: No skin rash. NEUROLOGIC: Alert and awake and oriented x3. No focal neurologic deficits. Moving all the extremit ies. PSYCHIATRIC: Mood and affect normal. LABORATORY DATA: Potassium is 3.9, BUN is 76 from 78, creatinine is 4.5 from 4.8, GFR of 9. ASSESSMENT AND PLAN: 1. Acute kidney injury on chronic kidney disease, stage 4. Renal function with slight improvement a nd agree with hydration, most likely from volume depletion. Continue supportive care. No acute christopher cation for dialysis. 2. Edema, controlled. 3. Hypertension. 4. Anemia. 5. Hyponatremia. Plan is to continue on IV hydration.
[2017-10-01] MEDS: Levothyroxine Sodium 125 MCG TAB PO SCH (05:57)
[2017-10-01 06:23] LABS: #Basophils 0.1 thou/uL (0.0-0.2); #Eosinphils 0.2 thou/uL (0.0-0.7); #Lymphocytes 2.4 thou/uL (1.20-3.40); #Monocytes 0.5 thou/uL (0.11-0.59); %Basophils 0.9 % (0.0-1.0); %Eosinophils 3.1 % (0.0-10.0); %Lymphocytes 38.6 % (21.0-51.0); %Monocytes 8.2 % (0.0-10.0); %Neutrophils 49.2 % (42.0-75.0); Hemoglobin 9.4 g/dL (12.0-16.0); Mean Corpuscular HGB CONC 33.5 g/dL (32.0-36.0); Mean Corpuscular Hemoglobin 30.3 pg (27.0-31.0); Mean Corpuscular Volume 90.4 fl (81.0-99.0); Mean Platelet Volume 8.5 fL (7.4-10.4); Platelet Count 182 thou/uL (130-400); RBC Distribution Width 13.5 % (11.5-14.5); Red Blood Cell (RBC) Count 3.11 mill/uL (4.20-5.40); White Blood Cell (WBC) Count 6.1 thou/uL (4.8-10.8)
[2017-10-01 06:34] LABS: Anion Gap 13 mmol/L (10-20); BUN (Urea Nitrogen) 62 mg/dL (9.8-20.1); Calc. Creatinine Clearance 11 mL/min (70-130); Carbon Dioxide 19 mmol/L (23-31); Chloride 110 mmol/L (98-107); Estimated GFR-MDRD 11; Glucose 103 mg/dL (83-110); Potassium 3.8 mmol/L (3.5-5.1); Sodium 138 mmol/L (136-145)
[2017-10-01] MEDS: Sodium Chloride 0.9% 1,000 ML IV SCH ×3 (07:52→13:03)
--- NOTE | 2017-10-01 07:52 | PDOC.FM ---
- Subjective Subjective: Patient doing well this AM. She is not having any further episodes of nausea or vomiting. She is tolerating PO well and voiding normally. - Objective MAR Reviewed: Yes Vital Signs & Weight: Vital Signs (12 hours) Temp Pulse Resp BP Pulse Ox 09/30/17 20:00 98.3 F 61 14 136/63 95 Weight Weight 68.039 kg I&O: 09/30/17 10/01/17 10/02/17 06:59 06:59 06:59 Intake Total 2248 Output Total 500 Balance 1748 Result Diagrams: 10/01/17 05:20 10/01/17 05:20 <Danna Soria - Last Filed: 10/01/17 07:50> - Objective Vital Signs & Weight: Vital Signs (12 hours) Temp Pulse Resp BP BP Pulse Ox 10/01/17 09:43 65 191/78 H 10/01/17 08:16 63 189/80 H 10/01/17 08:00 98.2 F 63 16 189/80 H 92 L Weight Weight 150 lb I&O: 09/30/17 10/01/17 10/02/17 06:59 06:59 06:59 Intake Total 2248 Output Total 500 Balance 1748 Result Diagrams: 10/01/17 05:20 10/01/17 05:20 <Alexandre Peter - Last Filed: 10/01/17 10:29> Phys Exam - Physical Examination Constitutional: NAD HEENT: moist MMs Respiratory: no wheezing, no rales, no rhonchi, clear to auscultation bilateral Cardiovascular: RRR, no rub 4/6 systolic murmur Gastrointestinal: soft, non-tender, no distention, positive bowel sounds Musculoskeletal: no edema, pulses present Neurological: non-focal, moves all 4 limbs Psychiatric: normal affect, A&O x 3 Skin: normal turgor, cap refill <2 seconds <Danna Soria - Last Filed: 10/01/17 07:50> Dx/Plan (1) Acute renal failure Status: Acute QualifierTitle: Acute renal failure type: unspecified Qualified Code(s): N17.9 - Acute kidney failure, unspecified (2) CHARMAINE (acute kidney injury) Code(s): N17.9 - ACUTE KIDNEY FAILURE, UNSPECIFIED Status: Acute (3) Anemia Code(s): D64.9 - ANEMIA, UNSPECIFIED Status: Acute QualifierTitle: Anemia type: due to chronic kidney disease Chronic kidney disease stage: stage 4 (severe) Qualified Code(s): N18.4 - Chronic kidney disease, stage 4 (severe); D63.1 - Anemia in chronic kidney disease; D63.1 - Anemia in chronic kidney disease (4) Diabetes Code(s): E11.9 - TYPE 2 DIABETES MELLITUS WITHOUT COMPLICATIONS Status: Acute QualifierTitle: Diabetes mellitus type: type 2 Diabetes mellitus superintendent marine oil terminal insulin use: without superintendent marine oil terminal use Diabetes mellitus complication status : with kidney complications Diabetes mellitus complication detail: with nephropathy Qualified Code(s): E11.21 - Type 2 diabetes mellitus with diabetic nephropathy (5) HTN (hypertension) Code(s): I10 - ESSENTIAL (PRIMARY) HYPERTENSION Status: Acute QualifierTitle: Hypertension type: essential hypertension Qualified Code( s): I10 - Essential (primary) hypertension (6) Hx of coronary artery disease Code(s): Z86.79 - PERSONAL HISTORY OF OTHER DISEASES OF THE CIRCULATORY SYSTEM Status: Acute (7) Hx of deep venous thrombosis Code(s): Z86.718 - PERSONAL HISTORY OF OTHER VENOUS THROMBOSIS AND EMBOLISM Status: Acute (8) Hypothyroidism Code(s): E03.9 - HYPOTHYROIDISM, UNSPECIFIED Status: Acute QualifierTitle: Hypothyroidism type: acquired Qualified Code(s): E03.9 - Hypothyroidism, unspecified (9) Sinus bradycardia Code(s): R00.1 - BRADYCARDIA, UNSPECIFIED Status: Acute - Plan Plan: Acute Renal Failure on CKD IV Patient presented to [place] ED with BUN 80, Cr 5.18, GFR 8. She had been vomiting for the past 4 days so this could be 2/2 dehydration. She is s/p 2L NS fluid boluses in the ED. Cr improved today to 3.93 with GFR of 11. -Monitor on tele -Dr. Ellis with nephrology has been consulted, appreciate recs -NS @ 125 -Monitor renal function -Renal diet -Avoid nephrotoxic agents Sinus Bradycardia Patient on carvedilol at home -Will monitor -Hold BB for now and monitor on tele DM2 Patient's most recent A1c was controlled. -Accuchecks ACHS -Mild SSI HTN Patient had elevated BP's initially in the ED. Have been controlled since admission -Restart home meds except for Carvedilol -Monitor closely HLD -Will hold home med for now CAD s/p 3v CABG -Continue aspirin Hypothyroidism Patient unsure of dose of medication. Most recent TSH was 10. Medication dose was likely changed. Her TSH now is 17.7. -started synthroid 125mcg as home dose was 112 mcg. <Danna Soria - Last Filed: 10/01/17 07:50> (1) Acute renal failure Status: Acute Qualifiers: Acute renal failure type: unspecified Qualified Code(s): N17.9 - Acute kidney failure, unspecified (2) CHARMAINE (acute kidney injury) Code(s): N17.9 - ACUTE KIDNEY FAILURE, UNSPECIFIED Status: Acute (3) Anemia Code(s): D64.9 - ANEMIA, UNSPECIFIED Status: Acute Qualifiers: Anemia type: due to chronic kidney disease Chronic kidney disease stage: stage 4 (severe) Qualified Code(s): N18.4 - Chronic kidney disease, stage 4 ( severe); D63.1 - Anemia in chronic kidney disease; D63.1 - Anemia in chronic kidney disease (4) Diabetes Code(s): E11.9 - TYPE 2 DIABETES MELLITUS WITHOUT COMPLICATIONS Status: Acute Qualifiers: Diabetes mellitus type: type 2 Diabetes mellitus assisted insulin use: without superintendent marine oil terminal use Diabetes mellitus complication status: with kidney complications Diabetes mellitus complication detail: with nephropathy Qualified Code(s): E11.21 - Type 2 diabetes mellitus with diabetic nephropathy (5) HTN (hypertension) Code(s): I10 - ESSENTIAL (PRIMARY) HYPERTENSION Status: Acute Qualifiers: Hypertension type: essential hypertension Qualified Code(s): I10 - Essential (primary) hypertension (6) Hx of coronary artery disease Code(s): Z86.79 - PERSONAL HISTORY OF OTHER DISEASES OF THE CIRCULATORY SYSTEM Status: Acute (7) Hx of deep venous thrombosis Code(s): Z86.718 - PERSONAL HISTORY OF OTHER VENOUS THROMBOSIS AND EMBOLISM Status: Acute (8) Hypothyroidism Code(s): E03.9 - HYPOTHYROIDISM, UNSPECIFIED Status: Acute Qualifiers: Hypothyroidism type: acquired Qualified Code(s): E03.9 - Hypothyroidism, unspecified (9) Sinus bradycardia Code(s): R00.1 - BRADYCARDIA, UNSPECIFIED Status: Acute <Alexandre Peter - Last Filed: 10/01/17 10:29> Attending Addendum - Attending Addendum Date/Time: 10/01/17 1028 I personally evaluated the patient and discussed the management with Dr. Soria I agree with the History, Examination, Assessment and Plan documented above with any addition or exceptions noted below. Patient doing well and creatinine improving on fluids. Will continue fluids and monitor creatinine tomorrow. Nephrology on board. <Alexandre Peter - Last Filed: 10/01/17 10:29>
[2017-10-01] MEDS: Heparin 5,000 UNITS/ML VIAL SC SCH ×3 (08:15→21:40)
[2017-10-01] MEDS: Amlodipine 10 MG TAB PO SCH (08:16)
[2017-10-01] MEDS: Aspirin 325 mg Enteric Coated Tablet PO SCH (08:16)
[2017-10-01] MEDS ORDERED: hydrALAZINE 20 MG/ML VIAL SLOW IVP SCH (09:45)
[2017-10-01] MEDS ORDERED: Sodium Chloride 0.9% 1,000 ML IV SCH (09:58)
--- NOTE | 2017-10-01 14:09 | PRG ---
DATE OF SERVICE: 10/01/2017 SUBJECTIVE: Patient was seen and examined at bedside and overnight events noted. Patient denies any shortness of breath or chest pain or palpitation. No history of nausea or vomiting or diarrhea or f ever or chills or cramps. OBJECTIVE: GENERAL: Elderly female in no apparent distress. VITAL SIGNS: Temperature 98.2, pulse 65, respiratory 18, and blood pressure 138/65. HEENT: Atraumatic, normocephalic. Oral mucosa is moist. NECK: Supple. CARDIOVASCULAR: S1, S2 heard. Rate and rhythm regular. RESPIRATORY: Clear to auscultation. GASTROINTESTINAL: Abdomen is soft. MUSCULOSKELETAL: No tenderness. No edema. DERMATOLOGIC: No skin rash. NEUROLOGIC: Alert and awake and oriented x3. No focal neurologic deficits. Moving all the extremit ies. PSYCHIATRIC: Mood and affect normal. LABORATORY DATA: Potassium of 3.8, BUN is 62, and creatinine is 3.9. ASSESSMENT AND PLAN: 1. Acute kidney injury on chronic kidney stage IV, renal function with improvement. Continue oral h ydration. Okay to stop IV fluids. 2. Edema, controlled. 3. Hypertension. 4. Anemia. Monitor hemoglobin. 5. Hyponatremia, resolved. 6. We will recommend to stop intravenous fluids and continue oral hydration and avoid nephrotoxins. Renally dose all the medications.
[2017-10-02 05:11] LABS: #Eosinphils 0.2 thou/uL (0.0-0.7); #Lymphocytes 1.9 thou/uL (1.20-3.40); #Monocytes 0.6 thou/uL (0.11-0.59); #Neutrophils 5.2 thou/uL (1.40-6.50); %Basophils 0.6 % (0.0-1.0); %Eosinophils 2.2 % (0.0-10.0); %Neutrophils 65.2 % (42.0-75.0); Mean Corpuscular HGB CONC 33.2 g/dL (32.0-36.0); Mean Corpuscular Hemoglobin 30.1 pg (27.0-31.0); Mean Corpuscular Volume 90.5 fl (81.0-99.0); Mean Platelet Volume 8.5 fL (7.4-10.4); Platelet Count 199 thou/uL (130-400); RBC Distribution Width 13.5 % (11.5-14.5); Red Blood Cell (RBC) Count 3.31 mill/uL (4.20-5.40)
[2017-10-02 05:26] LABS: Anion Gap 12 mmol/L (10-20); BUN (Urea Nitrogen) 53 mg/dL (9.8-20.1); Calc. Creatinine Clearance 13 mL/min (70-130); Calcium 8.3 mg/dL (7.8-10.44); Carbon Dioxide 21 mmol/L (23-31); Chloride 109 mmol/L (98-107); Estimated GFR-MDRD 12; Glucose 127 mg/dL (83-110); Potassium 4.1 mmol/L (3.5-5.1); Sodium 138 mmol/L (136-145)
--- NOTE | 2017-10-02 05:52 | PDOC.FM ---
- Subjective Subjective: Patient states she did not sleep well overnight. She denies any SOB different than her normal. She denies chest pain, lightheadedness, or fevers/chills. She does state that she feels weak. She notes that she would not feel safe going home because it would put too much stress on her daughter in law. She feels like she would be better off in a [facility] care facility and specifically would like to go to [place], [place] close to family. No other complaints. - Objective Vital Signs & Weight: Vital Signs (12 hours) Temp Pulse Resp BP Pulse Ox 10/02/17 03:35 98.7 F 80 14 178/81 H 10/01/17 20:00 97.9 F 66 20 132/59 L 92 L Weight Weight 70.488 kg I&O: 09/30/17 10/01/17 10/02/17 06:59 06:59 06:59 Intake Total 2248 1500 Output Total 500 975 Balance 1748 525 Result Diagrams: 10/02/17 04:33 10/02/17 04:33 <Jose Arceo - Last Filed: 10/02/17 08:52> - Objective Vital Signs & Weight: Vital Signs (12 hours) Temp Pulse Resp BP Pulse Ox 10/02/17 10:08 19 93 L 10/02/17 08:35 77 10/02/17 07:40 98.0 F 77 20 95 10/02/17 07:31 98.0 F 77 20 178/73 H 91 L 10/02/17 03:35 98.7 F 80 14 178/81 H Weight Weight 70.488 kg I&O: 10/01/17 10/02/17 10/03/17 06:59 06:59 06:59 Intake Total 2248 2165 Output Total 500 1575 Balance 1748 590 Result Diagrams: 10/02/17 04:33 10/02/17 04:33 <Gage Guevara - Last Filed: 10/02/17 11:28> Phys Exam - Physical Examination Constitutional: NAD HEENT: moist MMs Neck: no nodes Respiratory: clear to auscultation bilateral Slight expiratory wheezes Cardiovascular: RRR, no significant murmur Gastrointestinal: soft, non-tender, no distention, positive bowel sounds Musculoskeletal: no edema, pulses present Neurological: non-focal, normal sensation, moves all 4 limbs Lymphatic: no nodes Psychiatric: normal affect, A&O x 3 <AdisJose ellsworth - Last Filed: 10/02/17 08:52> Dx/Plan (1) Acute renal failure Status: Acute QualifierTitle: Acute renal failure type: unspecified Qualified Code(s): N17.9 - Acute kidney failure, unspecified (2) CKD (chronic kidney disease) Code(s): N18.9 - CHRONIC KIDNEY DISEASE, UNSPECIFIED Status: Chronic QualifierTitle: Chronic kidney disease stage: stage 4 (severe) Qualified Code(s): N18.4 - Chronic kidney disease, stage 4 (severe) (3) CHARMAINE (acute kidney injury) Code(s): N17.9 - ACUTE KIDNEY FAILURE, UNSPECIFIED Status: Acute (4) Sinus bradycardia Code(s): R00.1 - BRADYCARDIA, UNSPECIFIED Status: Acute (5) Diabetes Code(s): E11.9 - TYPE 2 DIABETES MELLITUS WITHOUT COMPLICATIONS Status: Acute QualifierTitle: Diabetes mellitus type: type 2 Diabetes mellitus penitentiary insulin use: without intermodal dispatcher use Diabetes mellitus complication status : with kidney complications Diabetes mellitus complication detail: with nephropathy Qualified Code(s): E11.21 - Type 2 diabetes mellitus with diabetic nephropathy (6) HTN (hypertension) Code(s): I10 - ESSENTIAL (PRIMARY) HYPERTENSION Status: Acute QualifierTitle: Hypertension type: essential hypertension Qualified Code( s): I10 - Essential (primary) hypertension (7) Hx of coronary artery disease Code(s): Z86.79 - PERSONAL HISTORY OF OTHER DISEASES OF THE CIRCULATORY SYSTEM Status: Acute (8) Hx of deep venous thrombosis Code(s): Z86.718 - PERSONAL HISTORY OF OTHER VENOUS THROMBOSIS AND EMBOLISM Status: Acute (9) Hypothyroidism Code(s): E03.9 - HYPOTHYROIDISM, UNSPECIFIED Status: Acute QualifierTitle: Hypothyroidism type: acquired Qualified Code(s): E03.9 - Hypothyroidism, unspecified - Plan Plan: Acute Renal Failure on CKD IV Patient presented to [facility] ED with BUN 80, Cr 5.18, GFR 8. She had been vomiting for the past 4 days so this could be 2/2 dehydration. She is s/p 2L NS fluid boluses in the ED. Cr improved today to 3.48 - Monitor on tele - Dr. Ellis with nephrology has been consulted, appreciate recs - Encourage PO intake - Monitor renal function - Renal diet - Avoid nephrotoxic agents Sinus Bradycardia - Patient on carvedilol at home - Will monitor DM2 - Accuchecks ACHS - Mild SSI HTN - Restart home meds except for Carvedilol - Monitor closely - BP elevated with fluids, IVF stopped will trend CAD s/p 3v CABG - Continue aspirin Hypothyroidism - started synthroid 125mcg as home dose was 112 mcg. Disposition: Stable, Likely ready for discharge later this week. Will consult Case Management for assistance of admission to Assisted Care Facility. <Jose Arceo - Last Filed: 10/02/17 08:52> Attending Addendum - Attending Addendum Date/Time: 10/02/17 112 I personally evaluated the patient and discussed the management with Dr. Arceo. I agree with the History, Examination, Assessment and Plan documented above with any addition or exceptions noted below. Patient denies complaints this morning. She thinks that her daughter in law no longer has the capability to devote time to care for her anymore, and she would like to seek post acute care placement at [facility] versus SNF. Case mgmt consulted to assist with this. Her renal function continues to improve though GFR is still below ESRD status. Continue PO hydration and await any further recs from Nephro. No indication for HD at this time. Low normal sats on 3L by [place], but patient on intermittent and chronic O2 supplementation at home. Will work to wean this as much as we can prior to her discharge. <Gage Guevara - Last Filed: 10/02/17 11:28>
[2017-10-02] MEDS: Levothyroxine Sodium 125 MCG TAB PO SCH (06:04)
[2017-10-02] MEDS: Sodium Chloride 0.9% 1,000 ML IV SCH (06:04)
[2017-10-02] MEDS: Aspirin 325 mg Enteric Coated Tablet PO SCH (08:35)
[2017-10-02] MEDS: Heparin 5,000 UNITS/ML VIAL SC SCH ×3 (08:35→21:24)
[2017-10-02] MEDS: Amlodipine 10 MG TAB PO SCH (08:35)
[2017-10-02] MEDS: Carvedilol 6.25 MG TAB PO SCH ×2 (08:35→21:25)
--- NOTE | 2017-10-02 11:37 | PRG ---
DATE OF SERVICE: 10/02/2017 SUBJECTIVE: This is an 87-year-old female being seen for acute kidney injury. The patient denies an y nausea, vomiting, or chest pain. PHYSICAL EXAMINATION: GENERAL: Patient is awake, alert. VITAL SIGNS: Afebrile, pulse 90, breathing at 16, blood pressure 178/73. GENERAL APPEARANCE AND MENTAL STATUS: Fair. HEAD/NECK: Normocephalic, atraumatic. EYES: EOMI. No deformity. EARS: Clear. No ulcers. NOSE: Intact. No lesions. MOUTH: Clear. No discharge. THROAT: Clear. No exudate. LUNGS: Clear. No crackles. CARDIAC: S1, S2. No rub. ABDOMEN: Benign. BS+. GENITALIA/RECTUM: Garner absent. BACK/EXTREMITIES: Edema 0+ Ulcer-. NEUROLOGICAL: Alert and motor intact. SKIN: Rash- Bruise- LYMPHATICS: Edema- Ulcer-. LABORATORY DATA: Show hemoglobin of 10. ASSESSMENT AND RECOMMENDATIONS: 1. Stage 6 chronic kidney disease, improving. 2. Hypertension, stable. 3. Anemia, stable. 4. Medication based on glomerular filtration rate are appropriate. No indication for dialysis.
[2017-10-03 05:06] LABS: #Eosinphils 0.2 thou/uL (0.0-0.7); #Lymphocytes 1.9 thou/uL (1.20-3.40); #Monocytes 0.6 thou/uL (0.11-0.59); #Neutrophils 3.4 thou/uL (1.40-6.50); %Basophils 0.6 % (0.0-1.0); %Eosinophils 2.9 % (0.0-10.0); %Lymphocytes 31.7 % (21.0-51.0); %Monocytes 9.8 % (0.0-10.0); Hemoglobin 8.6 g/dL (12.0-16.0); Mean Corpuscular HGB CONC 32.5 g/dL (32.0-36.0); Mean Corpuscular Hemoglobin 29.7 pg (27.0-31.0); Mean Corpuscular Volume 91.4 fl (81.0-99.0); Mean Platelet Volume 8.5 fL (7.4-10.4); Platelet Count 170 thou/uL (130-400); RBC Distribution Width 13.2 % (11.5-14.5); Red Blood Cell (RBC) Count 2.89 mill/uL (4.20-5.40); White Blood Cell (WBC) Count 6.1 thou/uL (4.8-10.8)
[2017-10-03 05:21] LABS: Anion Gap 10 mmol/L (10-20); BUN (Urea Nitrogen) 47 mg/dL (9.8-20.1); Calc. Creatinine Clearance 13 mL/min (70-130); Calcium 8.2 mg/dL (7.8-10.44); Carbon Dioxide 23 mmol/L (23-31); Chloride 107 mmol/L (98-107); Estimated GFR-MDRD 12; Glucose 125 mg/dL (83-110); Potassium 4.2 mmol/L (3.5-5.1); Sodium 136 mmol/L (136-145)
[2017-10-03] MEDS: Levothyroxine Sodium 125 MCG TAB PO SCH (05:21)
--- NOTE | 2017-10-03 06:10 | PDOC.FM ---
- Subjective Subjective: Patient slept well overnight. No acute events. She states she is ready to go to a SNF after she gets discharged from the hospital. No other complaints. - Objective Vital Signs & Weight: Vital Signs (12 hours) Temp Pulse Resp BP Pulse Ox 10/03/17 04:00 97.9 F 72 16 135/61 92 L 10/02/17 21:20 97.7 F 64 18 134/60 95 Weight Weight 70.488 kg I&O: 10/01/17 10/02/17 10/03/17 06:59 06:59 06:59 Intake Total 2248 2165 900 Output Total 500 1575 400 Balance 1748 590 500 Result Diagrams: 10/03/17 04:32 10/03/17 04:32 <Jose Arceo - Last Filed: 10/03/17 07:48> - Objective Vital Signs & Weight: Vital Signs (12 hours) Temp Pulse Pulse Pulse Resp BP BP 10/03/17 09:29 70 62 150/68 H 10/03/17 08:48 66 133/64 10/03/17 08:45 133/64 10/03/17 08:00 97.3 F L 66 18 10/03/17 04:00 97.9 F 72 16 BP BP Pulse Ox Pulse Ox Pulse Ox 10/03/17 09:29 143/63 H 92 L 96 10/03/17 08:48 10/03/17 08:45 10/03/17 08:00 133/64 93 L 10/03/17 04:00 135/61 92 L Weight Weight 70.488 kg I&O: 10/02/17 10/03/17 10/04/17 06:59 06:59 06:59 Intake Total 2165 900 Output Total 1575 400 Balance 590 500 Result Diagrams: 10/03/17 04:32 10/03/17 04:32 <Gage Guevara - Last Filed: 10/03/17 10:16> Phys Exam - Physical Examination HEENT: moist MMs Neck: no nodes Respiratory: no wheezing, clear to auscultation bilateral Cardiovascular: RRR, no significant murmur Gastrointestinal: soft, non-tender, no distention, positive bowel sounds Musculoskeletal: no edema, pulses present Neurological: non-focal, normal sensation, moves all 4 limbs Lymphatic: no nodes Psychiatric: normal affect, A&O x 3 Skin: no rash <Jose Arceo - Last Filed: 10/03/17 07:48> Dx/Plan (1) Acute renal failure Status: Acute QualifierTitle: Acute renal failure type: unspecified Qualified Code(s): N17.9 - Acute kidney failure, unspecified (2) CKD (chronic kidney disease) Code(s): N18.9 - CHRONIC KIDNEY DISEASE, UNSPECIFIED Status: Chronic QualifierTitle: Chronic kidney disease stage: stage 4 (severe) Qualified Code(s): N18.4 - Chronic kidney disease, stage 4 (severe) (3) CHARMAINE (acute kidney injury) Code(s): N17.9 - ACUTE KIDNEY FAILURE, UNSPECIFIED Status: Acute (4) Sinus bradycardia Code(s): R00.1 - BRADYCARDIA, UNSPECIFIED Status: Acute (5) Diabetes Code(s): E11.9 - TYPE 2 DIABETES MELLITUS WITHOUT COMPLICATIONS Status: Acute QualifierTitle: Diabetes mellitus type: type 2 Diabetes mellitus assistant terminal manager insulin use: without assistant terminal manager use Diabetes mellitus complication status : with kidney complications Diabetes mellitus complication detail: with nephropathy Qualified Code(s): E11.21 - Type 2 diabetes mellitus with diabetic nephropathy (6) HTN (hypertension) Code(s): I10 - ESSENTIAL (PRIMARY) HYPERTENSION Status: Acute QualifierTitle: Hypertension type: essential hypertension Qualified Code( s): I10 - Essential (primary) hypertension (7) Hx of coronary artery disease Code(s): Z86.79 - PERSONAL HISTORY OF OTHER DISEASES OF THE CIRCULATORY SYSTEM Status: Acute (8) Hx of deep venous thrombosis Code(s): Z86.718 - PERSONAL HISTORY OF OTHER VENOUS THROMBOSIS AND EMBOLISM Status: Acute (9) Hypothyroidism Code(s): E03.9 - HYPOTHYROIDISM, UNSPECIFIED Status: Acute QualifierTitle: Hypothyroidism type: acquired Qualified Code(s): E03.9 - Hypothyroidism, unspecified - Plan Plan: Acute Renal Failure on CKD IV Patient presented to [place] ED with BUN 80, Cr 5.18, GFR 8. She had been vomiting for the past 4 days so this could be 2/2 dehydration. She is s/p 2L NS fluid boluses in the ED. Cr stable today to 3.50 - Monitor on tele - Dr. Ellis with nephrology has been consulted, appreciate recs - Nephro no longer recommending IVF - Encourage PO intake - Monitor renal function - Renal diet - Avoid nephrotoxic agents Sinus Bradycardia - Will monitor (HR 60-70s currently) - Not symptomatic DM2 - Accuchecks ACHS - Mild SSI HTN - Restart home meds except for Carvedilol - Monitor closely - BP elevated with fluids, IVF stopped will trend CAD s/p 3v CABG - Continue aspirin Hypothyroidism - started synthroid 125mcg as home dose was 112 mcg. Disposition: Stable, Likely ready for discharge to SNF. Awaiting PT/OT evaluation and treatment for qualification of SNF placement. <Jose Arceo - Last Filed: 10/03/17 07:48> Attending Addendum - Attending Addendum Date/Time: 10/03/17 1015 I personally evaluated the patient and discussed the management with Dr. Arceo. I agree with the History, Examination, Assessment and Plan documented above with any addition or exceptions noted below. Patient doing well. Awaiting placement once PT has evaluated, hopefully a SNF facility for rehab. Renal function stable, encourage PO hydration. No current need for HD though GFR still <15. <Gage Guevara - Last Filed: 10/03/17 10:16>
[2017-10-03] MEDS: Carvedilol 6.25 MG TAB PO SCH ×2 (08:45→20:08)
[2017-10-03] MEDS: Aspirin 325 mg Enteric Coated Tablet PO SCH (08:45)
[2017-10-03] MEDS: Heparin 5,000 UNITS/ML VIAL SC SCH ×3 (08:48→20:08)
[2017-10-03] MEDS: Amlodipine 10 MG TAB PO SCH (08:48)
--- NOTE | 2017-10-03 09:12 | PRG ---
DATE OF SERVICE: 10/03/2017 SUBJECTIVE: A 87-year-old female being seen for CKD stage 4. The patient denies any nausea, vomitin g or chest pain. PHYSICAL EXAMINATION: GENERAL: Patient is awake, alert. VITAL SIGNS: Afebrile, pulse 63, breathing 16, blood pressure 135/61. HEAD/NECK: Normocephalic. Atraumatic. EYES: EOMI. No deformity. EARS: Clear. No ulcers. NOSE: Intact. No lesions. MOUTH: Clear. No discharge. THROAT: Clear. No exudate. LUNGS: Clear. No crackles. CARDIAC: S1, S2. No rub. ABDOMEN: Benign. BS+. GENITALIA/RECTUM: Garner absent. BACK/EXTREMITIES: Edema 0+ Ulcer- NEUROLOGICAL: Alert and motor intact. SKIN: Rash- Bruise- LYMPHATICS: Edema- Ulcer- LABORATORY DATA: Show hemoglobin 8.6, creatinine 3.5. ASSESSMENT AND PLAN: 1. Chronic kidney disease stage 5, stable. 2. Hypertension, stable. 3. Anemia, stable. 4. Acute kidney injury, stable. No indication for dialysis at this time.
[2017-10-04 05:21] LABS: #Basophils 0.1 thou/uL (0.0-0.2); #Eosinphils 0.2 thou/uL (0.0-0.7); #Lymphocytes 1.9 thou/uL (1.20-3.40); #Monocytes 0.5 thou/uL (0.11-0.59); #Neutrophils 2.5 thou/uL (1.40-6.50); %Basophils 1.2 % (0.0-1.0); %Eosinophils 3.9 % (0.0-10.0); %Lymphocytes 36.9 % (21.0-51.0); %Monocytes 10.4 % (0.0-10.0); %Neutrophils 47.7 % (42.0-75.0); Hemoglobin 8.6 g/dL (12.0-16.0); Mean Corpuscular HGB CONC 32.7 g/dL (32.0-36.0); Mean Corpuscular Hemoglobin 29.9 pg (27.0-31.0); Mean Corpuscular Volume 91.4 fl (81.0-99.0); Mean Platelet Volume 8.8 fL (7.4-10.4); Platelet Count 148 thou/uL (130-400); RBC Distribution Width 13.3 % (11.5-14.5); Red Blood Cell (RBC) Count 2.86 mill/uL (4.20-5.40); White Blood Cell (WBC) Count 5.1 thou/uL (4.8-10.8)
[2017-10-04] MEDS: Levothyroxine Sodium 125 MCG TAB PO SCH (05:34)
[2017-10-04 05:40] LABS: Anion Gap 13 mmol/L (10-20); BUN (Urea Nitrogen) 46 mg/dL (9.8-20.1); Calc. Creatinine Clearance 13 mL/min (70-130); Calcium 8.4 mg/dL (7.8-10.44); Carbon Dioxide 18 mmol/L (23-31); Chloride 108 mmol/L (98-107); Estimated GFR-MDRD 13; Glucose 101 mg/dL (83-110); Potassium 4.1 mmol/L (3.5-5.1); Sodium 135 mmol/L (136-145)
--- NOTE | 2017-10-04 06:24 | PDOC.FM ---
- Subjective Subjective: Patient had good night. She has been up and walking around independently. She is ready to move to the [place], [place] area. No sob, chest pain, fevers, or chills overnight. She is encouraged to continue to drink as much as possible. She states her urine output has remained the same. No other complaints. - Objective Vital Signs & Weight: Vital Signs (12 hours) Temp Pulse Resp BP Pulse Ox 10/04/17 04:00 97.7 F 62 20 138/65 95 10/03/17 19:30 97.5 F L 61 18 130/63 95 Weight Weight 69.513 kg I&O: 10/02/17 10/03/17 10/04/17 06:59 06:59 06:59 Intake Total 2165 900 480 Output Total 1575 400 100 Balance 590 500 380 Result Diagrams: 10/04/17 04:29 10/04/17 04:29 <Jose Arceo - Last Filed: 10/04/17 08:07> - Objective Vital Signs & Weight: Vital Signs (12 hours) Temp Pulse Resp BP Pulse Ox 10/04/17 08:07 62 10/04/17 08:05 97.9 F 66 16 142/63 H 90 L 10/04/17 04:00 97.7 F 62 20 138/65 95 Weight Weight 69.513 kg I&O: 10/03/17 10/04/17 10/05/17 06:59 06:59 06:59 Intake Total 900 1330 Output Total 400 1300 Balance 500 30 Result Diagrams: 10/04/17 04:29 10/04/17 04:29 <Gage Guevara - Last Filed: 10/04/17 11:05> Phys Exam - Physical Examination HEENT: moist MMs Neck: no nodes Respiratory: no wheezing, clear to auscultation bilateral Cardiovascular: RRR, no significant murmur Gastrointestinal: soft, non-tender, no distention, positive bowel sounds Musculoskeletal: no edema, pulses present Neurological: non-focal, normal sensation, moves all 4 limbs Lymphatic: no nodes Psychiatric: normal affect, A&O x 3 Skin: no rash <Jose Arcoe - Last Filed: 10/04/17 08:07> Dx/Plan (1) Acute renal failure Status: Acute QualifierTitle: Acute renal failure type: unspecified Qualified Code(s): N17.9 - Acute kidney failure, unspecified (2) CKD (chronic kidney disease) Code(s): N18.9 - CHRONIC KIDNEY DISEASE, UNSPECIFIED Status: Chronic QualifierTitle: Chronic kidney disease stage: stage 4 (severe) Qualified Code(s): N18.4 - Chronic kidney disease, stage 4 (severe) (3) CHARMAINE (acute kidney injury) Code(s): N17.9 - ACUTE KIDNEY FAILURE, UNSPECIFIED Status: Acute (4) Sinus bradycardia Code(s): R00.1 - BRADYCARDIA, UNSPECIFIED Status: Acute (5) Diabetes Code(s): E11.9 - TYPE 2 DIABETES MELLITUS WITHOUT COMPLICATIONS Status: Acute QualifierTitle: Diabetes mellitus type: type 2 Diabetes mellitus penitentiary insulin use: without penitentiary use Diabetes mellitus complication status : with kidney complications Diabetes mellitus complication detail: with nephropathy Qualified Code(s): E11.21 - Type 2 diabetes mellitus with diabetic nephropathy (6) HTN (hypertension) Code(s): I10 - ESSENTIAL (PRIMARY) HYPERTENSION Status: Acute QualifierTitle: Hypertension type: essential hypertension Qualified Code( s): I10 - Essential (primary) hypertension (7) Hx of coronary artery disease Code(s): Z86.79 - PERSONAL HISTORY OF OTHER DISEASES OF THE CIRCULATORY SYSTEM Status: Acute (8) Hx of deep venous thrombosis Code(s): Z86.718 - PERSONAL HISTORY OF OTHER VENOUS THROMBOSIS AND EMBOLISM Status: Acute (9) Hypothyroidism Code(s): E03.9 - HYPOTHYROIDISM, UNSPECIFIED Status: Acute QualifierTitle: Hypothyroidism type: acquired Qualified Code(s): E03.9 - Hypothyroidism, unspecified - Plan Plan: Acute Renal Failure on CKD IV Patient presented to [place] ED with BUN 80, Cr 5.18, GFR 8. She had been vomiting for the past 4 days so this could be 2/2 dehydration. She is s/p 2L NS fluid boluses in the ED. Cr stable today to 3.45 - CKD may established new Stage 5 and stable - Monitor on tele - Dr. Ellis with nephrology has been consulted, appreciate recs - Nephro no longer recommending IVF - Encourage PO intake - Monitor renal function - Renal diet - Avoid nephrotoxic agents Sinus Bradycardia - Will monitor (HR 60-70s currently) - Not symptomatic DM2 - Accuchecks ACHS - Mild SSI - Good control HTN - Restart home meds except for Carvedilol - Monitor closely - At goal CAD s/p 3v CABG - Continue aspirin Hypothyroidism - started synthroid 125mcg as home dose was 112 mcg. Disposition: Stable, Likely ready for discharge to SNF. Awaiting acceptance to facility. <Jose Arceo - Last Filed: 10/04/17 08:07> Attending Addendum - Attending Addendum Date/Time: 10/04/17 1103 I personally evaluated the patient and discussed the management with Dr. Arceo. I agree with the History, Examination, Assessment and Plan documented above with any addition or exceptions noted below. Patient doing well. Her renal function is stable with oral hydration and no evidence of need for HD. Awaiting placement at SNF. Stable for discharge once that occurs. <Gage Guevara - Last Filed: 10/04/17 11:05>
[2017-10-04] MEDS: Carvedilol 6.25 MG TAB PO SCH ×2 (08:07→22:58)
[2017-10-04] MEDS: Heparin 5,000 UNITS/ML VIAL SC SCH ×3 (08:07→22:11)
[2017-10-04] MEDS: Aspirin 325 mg Enteric Coated Tablet PO SCH (08:07)
[2017-10-04] MEDS: Amlodipine 10 MG TAB PO SCH (08:07)
--- NOTE | 2017-10-04 11:08 | PRG ---
DATE OF SERVICE: 10/04/2017 SUBJECTIVE: An 87-year-old female being seen for acute kidney injury with CKD stage 5. The patient denies any nausea, vomiting or chest pain. PHYSICAL EXAMINATION: GENERAL: Patient is awake, alert. VITAL SIGNS: Afebrile, pulse 75, breathing 16, blood pressure 142/68. HEAD/NECK: Normocephalic. Atraumatic. EYES: EOMI. No deformity. EARS: Clear. No ulcers. NOSE: Intact. No lesions. MOUTH: Clear. No discharge. THROAT: Clear. No exudate. LUNGS: Clear. No crackles. CARDIAC: S1, S2. No rub. ABDOMEN: Benign. BS+. GENITALIA/RECTUM: Garner absent. BACK/EXTREMITIES: Edema 0+ Ulcer- NEUROLOGICAL: Alert and motor intact. SKIN: Rash- Bruise- LYMPHATICS: Edema- Ulcer- LABORATORY DATA: Show hemoglobin 8.6, creatinine 3.45. ASSESSMENT AND PLAN: 1. Chronic kidney disease, stage 5 stable. No indication for dialysis. 2. Hypertension, stable. 3. Anemia, stable. 4. Metabolic acidosis, stable. No indication for dialysis at this time.
[2017-10-05] MEDS: Levothyroxine Sodium 125 MCG TAB PO SCH (05:10)
[2017-10-05 06:04] LABS: Anion Gap 11 mmol/L (10-20); BUN (Urea Nitrogen) 43 mg/dL (9.8-20.1); Calc. Creatinine Clearance 13 mL/min (70-130); Calcium 8.4 mg/dL (7.8-10.44); Carbon Dioxide 21 mmol/L (23-31); Chloride 108 mmol/L (98-107); Estimated GFR-MDRD 13; Glucose 102 mg/dL (83-110); Sodium 136 mmol/L (136-145)
--- NOTE | 2017-10-05 06:23 | PDOC.FM ---
- Subjective Subjective: Patient doing very well. No acute events overnight. She is ready for discharge from the hospital today. No other complaints this morning. - Objective Vital Signs & Weight: Vital Signs (12 hours) Temp Pulse Resp BP Pulse Ox 10/05/17 04:00 97.6 F 63 18 129/61 92 L 10/04/17 22:05 97.5 F L 58 L 18 120/59 L 95 Weight Weight 69.485 kg I&O: 10/03/17 10/04/17 10/05/17 06:59 06:59 06:59 Intake Total 900 1330 900 Output Total 400 1300 900 Balance 500 30 0 Result Diagrams: 10/04/17 04:29 10/05/17 04:52 <Jose Arceo - Last Filed: 10/05/17 08:01> - Objective Vital Signs & Weight: Vital Signs (12 hours) Temp Pulse Resp BP BP BP Pulse Ox 10/05/17 08:59 70 166/77 H 10/05/17 08:57 97.7 F 70 20 166/73 H 92 L 10/05/17 08:07 97.6 F 63 18 10/05/17 04:00 97.6 F 63 18 129/61 92 L Weight Weight 69.485 kg I&O: 10/04/17 10/05/17 10/06/17 06:59 06:59 06:59 Intake Total 1330 900 Output Total 1300 900 Balance 30 0 Result Diagrams: 10/04/17 04:29 10/05/17 04:52 <Gage Guevara - Last Filed: 10/05/17 10:35> Phys Exam - Physical Examination HEENT: moist MMs Neck: no nodes Respiratory: no wheezing, clear to auscultation bilateral Cardiovascular: RRR, no significant murmur Gastrointestinal: soft, non-tender, no distention, positive bowel sounds Musculoskeletal: no edema, pulses present Neurological: non-focal, normal sensation, moves all 4 limbs Lymphatic: no nodes Psychiatric: normal affect, A&O x 3 Skin: no rash <Jose Arceo - Last Filed: 10/05/17 08:01> Dx/Plan (1) Acute renal failure Status: Acute QualifierTitle: Acute renal failure type: unspecified Qualified Code(s): N17.9 - Acute kidney failure, unspecified (2) CKD (chronic kidney disease) Code(s): N18.9 - CHRONIC KIDNEY DISEASE, UNSPECIFIED Status: Chronic QualifierTitle: Chronic kidney disease stage: stage 4 (severe) Qualified Code(s): N18.4 - Chronic kidney disease, stage 4 (severe) (3) CHARMAINE (acute kidney injury) Code(s): N17.9 - ACUTE KIDNEY FAILURE, UNSPECIFIED Status: Acute (4) Sinus bradycardia Code(s): R00.1 - BRADYCARDIA, UNSPECIFIED Status: Acute (5) Diabetes Code(s): E11.9 - TYPE 2 DIABETES MELLITUS WITHOUT COMPLICATIONS Status: Acute QualifierTitle: Diabetes mellitus type: type 2 Diabetes mellitus terminal block assembler insulin use: without terminal block assembler use Diabetes mellitus complication status : with kidney complications Diabetes mellitus complication detail: with nephropathy Qualified Code(s): E11.21 - Type 2 diabetes mellitus with diabetic nephropathy (6) HTN (hypertension) Code(s): I10 - ESSENTIAL (PRIMARY) HYPERTENSION Status: Acute QualifierTitle: Hypertension type: essential hypertension Qualified Code( s): I10 - Essential (primary) hypertension (7) Hx of coronary artery disease Code(s): Z86.79 - PERSONAL HISTORY OF OTHER DISEASES OF THE CIRCULATORY SYSTEM Status: Acute (8) Hx of deep venous thrombosis Code(s): Z86.718 - PERSONAL HISTORY OF OTHER VENOUS THROMBOSIS AND EMBOLISM Status: Acute (9) Hypothyroidism Code(s): E03.9 - HYPOTHYROIDISM, UNSPECIFIED Status: Acute QualifierTitle: Hypothyroidism type: acquired Qualified Code(s): E03.9 - Hypothyroidism, unspecified - Plan Plan: Acute Renal Failure on CKD IV Patient presented to [place] ED with BUN 80, Cr 5.18, GFR 8. She had been vomiting for the past 4 days so this could be 2/2 dehydration. She is s/p 2L NS fluid boluses in the ED. Cr stable today to 3.35 - CKD may established new Stage 5 and improving - Monitor on tele - Dr. Ellis with nephrology has been consulted, appreciate recs - Nephro no longer recommending IVF - Encourage PO intake continuing as an outpatient - Monitor renal function - Renal diet - Avoid nephrotoxic agents Sinus Bradycardia - Will monitor (HR 60-70s currently) - Not symptomatic DM2 - Accuchecks ACHS - Mild SSI - Good control HTN - Restart home meds except for Carvedilol - Monitor closely - At goal CAD s/p 3v CABG - Continue aspirin Hypothyroidism - started synthroid 125mcg as home dose was 112 mcg. Disposition: Stable, Likely ready for discharge to SNF. Will be discharged today. <Jose Arceo - Last Filed: 10/05/17 08:01> Attending Addendum - Attending Addendum Date/Time: 10/05/17 1034 I personally evaluated the patient and discussed the management with Dr. Arceo. I agree with the History, Examination, Assessment and Plan documented above with any addition or exceptions noted below. Patient doing well and has been accepted for SNF admission. Her renal function is stable and she will be discharged today with outpatient follow up. <Gage Guevara - Last Filed: 10/05/17 10:35>
[2017-10-05 08:58] VITALS: TEMP 97.7
[2017-10-05] MEDS: Carvedilol 6.25 MG TAB PO SCH (08:59)
[2017-10-05] MEDS: Amlodipine 10 MG TAB PO SCH (08:59)
[2017-10-05] MEDS: Heparin 5,000 UNITS/ML VIAL SC SCH (08:59)
[2017-10-05] MEDS: Aspirin 325 mg Enteric Coated Tablet PO SCH (08:59)
[2017-10-05 09:10] VITALS: BP 166/77
--- NOTE | 2017-10-05 11:23 | PRG ---
DATE OF SERVICE: 10/05/2017 SUBJECTIVE: An 87-year-old female being seen for stage 4 chronic kidney disease. The patient denies any nausea, vomiting, or chest pain. PHYSICAL EXAMINATION: GENERAL: The patient is awake and alert. VITAL SIGNS: Afebrile, pulse 85, breathing 16, blood pressure 166/73. OBJECTIVE: See above. Awake, alert, in no acute distress. GENERAL APPEARANCE AND MENTAL STATUS: Fair. HEAD/NECK: Normocephalic. Atraumatic. EYES: EOMI. No deformity. EARS: Clear. No ulcers. NOSE: Intact. No lesions. MOUTH: Clear. No discharge. THROAT: Clear. No exudate. LUNGS: Clear. No crackles. CARDIAC: S1, S2. No rub. ABDOMEN: Benign. BS+. GENITALIA/RECTUM: Garner absent. BACK/EXTREMITIES: Edema 0+ Ulcer- NEUROLOGICAL: Alert and motor intact. SKIN: Rash- Bruise- LYMPHATICS: Edema- Ulcer- LABORATORY: Hemoglobin 8.6. Creatinine 3.3 ASSESSMENT AND RECOMMENDATIONS: 1. Chronic kidney disease stage 5, stable. 2. Hypertension, stable. 3. Anemia, stable. 4. Metabolic acidosis. No indication for dialysis. The patient will follow up with Dr. Cabrera in 1 week.
--- NOTE | 2017-10-05 12:43 | DIS-2 ---
DATE OF ADMISSION: 09/29/2017 DATE OF DISCHARGE: 10/05/2017 RESIDENT: Dr. Arceo. ADMITTING ATTENDING: Dr. Peter. DISCHARGE ATTENDING: Dr. Guevara. CONSULTATIONS: Nephrology and Dr. Ellis, Case Management, Occupational Therapy, and Palliative Care. PROCEDURES: None. PRIMARY DIAGNOSES: 1. Acute renal failure on chronic kidney disease IV. 2. Anemia. 3. Diabetes mellitus type 2. 4. Hypertension. 5. History of coronary artery disease. 6. History of deep venous thrombosis. 7. Hypothyroidism. 8. Sinus bradycardia. DISCHARGE MEDICATIONS: 1. Levothyroxine 125 mcg p.o. 0600. 2. Amlodipine 10 mg p.o. daily. 3. Losartan 25 mg p.o. daily. 4. Celexa 10 mg p.o. daily. 5. Carvedilol 12.5 mg p.o. b.i.d. 6. Senokot 2 tabs p.o. p.r.n. 7. Zofran 4 mg p.o. q.6 hours p.r.n. 8. Melatonin 3 mg p.o. at bedtime p.r.n. 9. Dulcolax 10 mg [place] daily p.r.n. 10. Aspirin 325 mg p.o. daily. 11. Maalox 30 mL p.o. q.6 hours p.r.n. 12. Tylenol 650 mg p.o. q.4 hours p.r.n. DISCONTINUED MEDICATIONS: Levothyroxine 112 mcg. HISTORY OF PRESENT ILLNESS AND HOSPITAL COURSE: This patient is an 87-year-old female with past [facility] history of type 2 diabetes, hypertension, CKD 4, and CAD who presents to the [place] ED due to n ausea and vomiting. She reports that she has been unable to keep anything down except for water for the past 4 days. She has had several episodes of vomiting per day and decreased appetite due to her upset stomach. She denies any abdominal pain, diarrhea, hematemesis. She reports that she has been drinking an adequate amount of fluid during this time and that she has had not decrease in amount of urination. She reports feeling confused, but cannot specify how she is confused. She is alert and o riented x3. She has had recent pneumonia and reports that she had persistent cough since that time w hich was productive and she denies any new fevers or chills. In the ER, she was given a 500 mL of no rmal saline bolus, Zofran and then given an additional 1 liter normal saline bolus. During this hospitalization, the patient had some notable lab values of her creatinine ranged from as high as 4.84 on day of admission down to 3.35 on day of discharge. Her GFR initially decreased down to 9 and has slowly made improvements back up to 13 on day of discharge. The patient also had hemog lobin that ranged from 10.0-8.6, which is longstanding and chronically stable for her. Also, her blo od glucose was under very well control, ranging from 102 to a size of 168 during this hospitalization . The patient was seen by Occupational Therapy and Physical Therapy and [facility] and she decided that she would like to move to [facility] to be cl oser to family and friends. Patient also stated that she wanted an out of hospital DNR signed and th at was accomplished in this hospitalization as well. The patient otherwise does continue to improve every day. Her sinus bradycardia was not symptomatic, although we did have to hold her carvedilol 3 times during this hospitalization because of low heart rate. The patient was then accepted to [facility] in [facility] and was transferred there on the day of discharge. Otherwise, the patient had no further complications during this hospitalization and was discharged on appropriate condition. DISPOSITION: Stable. DISCHARGE INSTRUCTIONS: 1. Location, she will be discharged to the [facility] in [facility]. 2. Diet will be a diabetic diet, heart healthy diet. 3. Activity will be as tolerated with orthopedic limitations that she does use a cane as well as car diopulmonary limits. 4. Follow up will be with the [facility] physician in [facility] to establish care as her primary care provider. We will wish this lady the best of luck and hope she has no further complications from this disease.
== END 2017-10-05 10:27 | DRG 683 ==
LOC: ERS 14:20 → 2NO 16:28
PROVIDERS: ADMIT Family Medicine; ATTEND Family Medicine
DX: N17.9 Acute kidney failure, unspecified (principal); I12.0 Hypertensive chronic kidney disease with stage 5 chronic kidney disease or end stage renal disease; E87.1 Hypo-osmolality and hyponatremia; E11.22 Type 2 diabetes mellitus with diabetic chronic kidney disease; I25.10 Atherosclerotic heart disease of native coronary artery without angina pectoris; N18.5 Chronic kidney disease, stage 5; E78.2 Mixed hyperlipidemia; D64.9 Anemia, unspecified; Z66 Do not resuscitate; Z79.899 Other long term (current) drug therapy; Z79.82 Long term (current) use of aspirin; Z79.2 Long term (current) use of antibiotics; Z95.1 Presence of aortocoronary bypass graft; Z86.718 Personal history of other venous thrombosis and embolism; E03.9 Hypothyroidism, unspecified; E86.0 Dehydration; R00.1 Bradycardia, unspecified; I25.2 Old myocardial infarction
CPT/HCPCS: 36415; 36416; 80048; 82553; 82570; 83735; 84100; 84300; 84443; 84484; 85025; 93005; 96360; 96361; A4216; G8978-GP-CI; G8979-GP-CI; G8980-GP-CI; G8987-GO-CJ; G8988-GO-CI; J0360; J1644; Q0162

== ENCOUNTER 2018-01-17 19:03 | Observation (INO) | payer MEDICARE, MEDICAID ==
--- NOTE | 2018-01-17 20:04 | RAD ---
CHEST ONE VIEW: 01/17/18 HISTORY: Chest pain. COMPARISON: Radiograph same day. FINDINGS: interval development of mild increased interstitial markings of the lung bases. No pneumothorax. Card iac silhouette and mediastinal contours are similar. No acute osseous abnormality. IMPRESSION: Mild increased linear markings both lung bases may reflect early edema. POS: [facility]
[2018-01-17] MEDS ORDERED: Nitroglycerin 0.4 MG TAB (25 Tab Bottle) ONE (20:14)
[2018-01-17 20:15] LABS: Troponin I Less than 0.010 ng/mL (< 0.028)
[2018-01-17] MEDS ORDERED: Ondansetron ODT 4 MG TAB SL PRN (23:27)
[2018-01-17] MEDS ORDERED: Ondansetron HCl/PF 4 MG/2 ML Vial IVP PRN (23:27)
[2018-01-17] MEDS ORDERED: HYDROcodone/Acetaminophen 5/325 mg Tablet PO PRN ×2 (23:27)
[2018-01-17 23:50] LABS: Troponin I 0.016 ng/mL (< 0.028)
[2018-01-18 02:40] LABS: Troponin I 0.013 ng/mL (< 0.028)
[2018-01-18] MEDS ORDERED: Bisacodyl 10 MG SUPP PR PRN (04:13)
[2018-01-18] MEDS ORDERED: Mag-Al 1200 mg/1200 mg/30 ML UDCUP PO PRN (04:13)
[2018-01-18] MEDS ORDERED: Senokot 8.6 MG TAB PO PRN (04:13)
[2018-01-18] MEDS ORDERED: Melatonin 3 MG TAB PO PRN (04:13)
[2018-01-18] MEDS ORDERED: HumaLOG 300 UNITS/3 ML VIAL SC PRN ×2 (04:14)
[2018-01-18] MEDS ORDERED: Dextrose 50% Abboject 50 ML SYRINGE SLOW IVP PRN (04:14)
[2018-01-18] MEDS ORDERED: Dextrose 5% in Water 1,000 ML IV PRN (04:14)
[2018-01-18] MEDS ORDERED: Loratadine 10 MG TAB PO PRN (08:08)
[2018-01-18] MEDS ORDERED: Milk Of Magnesia 30 ML UDCUP PO PRN (08:08)
[2018-01-18] MEDS ORDERED: Calcium Carbonate 500 MG ChewTAB PO PRN (08:08)
[2018-01-18] MEDS ORDERED: Diabetic Tussin 200 MG/10 ML UDCUP PO PRN (08:08)
[2018-01-18] MEDS ORDERED: Nitroglycerin 0.4 MG TAB (25 Tab Bottle) SL PRN (08:08)
[2018-01-18] MEDS ORDERED: Artificial Tears 18 DROP/0.9 ML EA EYE PRN (08:08)
[2018-01-18] MEDS ORDERED: Eucerin (Mineral Oil/Petrolatum,White) 30 gm Jar TOP PRN (08:08)
[2018-01-18] MEDS ORDERED: Ondansetron HCl/PF 4 MG/2 ML Vial IVP PRN (08:08)
[2018-01-18] MEDS ORDERED: Temazepam 15 MG CAP PO PRN (08:08)
[2018-01-18] MEDS ORDERED: Loperamide HCl 2 MG CAP PO PRN (08:08)
[2018-01-18] MEDS ORDERED: Chloraseptic Spray 180 ml Bottle PO PRN (08:08)
[2018-01-18] MEDS ORDERED: Ondansetron ODT 4 MG TAB PO PRN (08:08)
[2018-01-18] MEDS ORDERED: hydrALAZINE 20 MG/ML VIAL SLOW IVP PRN (08:08)
[2018-01-18] MEDS ORDERED: Sodium Chloride 0.65% Nasal 44 ML BOT EA NARE PRN (08:08)
[2018-01-18] MEDS: Carvedilol 6.25 MG TAB PO SCH ×2 (09:27→20:28)
[2018-01-18] MEDS: Citalopram 10 MG TAB PO SCH (09:28)
[2018-01-18] MEDS: Aspirin 81 mg Enteric Coated Tablet PO SCH (09:28)
[2018-01-18] MEDS: Losartan 25 MG TAB PO SCH (09:28)
[2018-01-18] MEDS: Amlodipine 10 MG TAB PO SCH (09:28)
[2018-01-18] MEDS: Famotidine 20 MG TAB PO SCH (09:41)
--- NOTE | 2018-01-18 10:34 | HP ---
DATE OF ADMISSION: 01/18/2018. PRIMARY CARE PHYSICIAN: Dr. Dean Porter. REASON FOR ADMISSION: Sent from [facility] for generalized weakness. HISTORY OF PRESENT ILLNESS: An 87-year-old female who was initially evaluated at [facility]. The patient went there at [facility] because she was experiencing overall weakness. Her weakness was generalized. She reports that on 01/15/2018, she had mechanical fall and she injured her both upper extremities. She reports that whenever she was trying to help her granddaughter from the fence, she fell down mechanically. She had off balance and injured her both upper extremities. She was having at that time severe pain in her right hand as well as left upper extremity. Her oeafhogz-mp-uks advised her to go to emergency room on that day, but she did not go to the hospital on the same day, but the next day they went to emergency room and the patient was diagnosed with transverse fracture of distal ulnar shaft and possible impacted fracture of distal radius. The patient was also found with a fracture of the base of the third through fifth metacarpals on the right side. Patient was treated with a splint and she was discharged home. After that emergency room visit, the patient made a followup appointment with primary care physician yesterday and they did routine blood test, which was abnormal and that is why primary care physician advised to go to [facility] and from there, she was sent to our hospital for evaluation. When I saw this patient at that time, the patient's main concern was that she is overall weak. She is not able to do by herself anything and she is burden to her [id number] who has a 5 year granddaughter, and she has to take care of her as well. The patient reports that she cannot go back to her granddaughter's place, because it is too much for her. The patient is interested in going to halfway home or rehab if possible. Her pain is controlled. Patient denies any chest pain, palpitation or shortness of breath. She denies any NSAID abuse. She denies any urinary tract infection symptoms. She denies any melena or hematochezia. She denies any orthopnea, PND or leg swelling. She denies any dizziness, palpitation or syncope. Primary care physician did a blood test yesterday, which was abnormal, but when we looked at her old record, patient has stable renal function. She had only one time elevated troponin. Her EKG was unremarkable. At [facility], she was given aspirin, nitropatch, and IV fluid and subsequently she was sent to our emergency room for evaluation and she was admitted to telemetry floor. REVIEW OF SYSTEMS: The following complete review of systems was negative, unless otherwise mentioned in the HPI or below: Constitutional: Weight loss or gain, ability to conduct usual activities. Skin: Rash, itching. Eyes: Double vision, pain. ENT/Mouth: Nose bleeding, neck stiffness, pain, tenderness. Cardiovascular: Palpitations, dyspnea on exertion, orthopnea. Respiratory: Shortness of breath, wheezing, cough, hemoptysis, fever or night sweats. Gastrointestinal: Poor appetite, abdominal pain, heartburn, nausea, vomiting, constipation, or diarrhea. Genitourinary: Urgency, frequency, dysuria, nocturia. Musculoskeletal: Pain, swelling. Neurologic/Psychiatric: Anxiety, depression. Allergy/Immunologic: Skin rash, bleeding tendency. Please see my HPI for pertinent positive and negative. All other review of system reviewed and negative except as mentioned in the HPI. PAST MEDICAL HISTORY: Diabetes type 2, chronic kidney disease stage 4, diabetic nephropathy, hypertension, dyslipidemia, history of coronary artery disease status post 2 times IA, history of DVT, hypothyroidism, chronic diastolic heart failure. PAST SURGICAL HISTORY: Bilateral knee surgery, x2, CABG x3, hip surgery. ALLERGIES: SULFA MEDICATION. SOCIAL HISTORY: Patient is , she quit smoking several years ago as well she quit drinking alcohol several years ago, currently she lives with her daughter in law. FAMILY HISTORY: No strong family history of premature CAD, CVA or cancer. CURRENT HOME MEDICATIONS: Amlodipine 10 mg daily, losartan 50 mg daily, Coreg 12.5 mg p.o. b.i.d., nitroglycerin 0.4 mg sublingual p.r.n., aspirin 81 mg p.o. daily, Celexa 10 mg p.o. daily, Zocor 20 mg p.o. at bedtime, Synthroid 112 mcg p.o. daily. PAST PSYCHIATRIC HISTORY: Anxiety and depression. EMERGENCY ROOM COURSE: Patient was given aspirin, nitropatch, and IV fluid at [facility]. PHYSICAL EXAMINATION: VITAL SIGNS: On arrival, blood pressure 198/86, pulse 67, respiratory rate 17, temperature 98.3, saturation 95% on room air, weight 63.5 kilograms. GENERAL: Patient is currently alert, awake, no obvious acute distress. HEENT: Head: Normocephalic, atraumatic. Eyes: Pupils round, reactive to light. Extraocular muscle intact. ENT: Oropharynx within normal limits. Moist mucous membranes, no oral lesion, no pharyngeal erythema, no exudate. NECK: Supple, no JVD, no thyromegaly, no carotid bruit, no jugular venous distention. LUNGS: Clear to auscultation without any rhonchi or rales. CARDIAC: S1, S2 regular, soft systolic murmur noted at apex as well as a right second intercostal space. No gallop, no rub. ABDOMEN: Soft, bowel sounds present, nontender, nondistended. No organomegaly , no mass, no suprapubic tenderness. BACK: Unremarkable, no CVA tenderness. EXTREMITIES: Upper extremity, patient does have a Velcro splint on the right wrist region with contusion, swelling and ecchymosis of the right hand. The patient also has a splint applied to left arm due to wrist fracture. Distal pulsation is intact. Capillary filling is intact. Lower extremity, no edema. Good peripheral pulsation. SKIN: No skin rash other than ecchymosis of the right hand. NEUROLOGIC: Nonfocal examination. Speech normal. No focal neurological deficit. SIGNIFICANT LABORATORY DATA AND IMAGING: EKG showing sinus bradycardia without any acute ischemic changes. Left wrist x-ray showed a transverse fracture of the distal ulnar shaft. Right hand x-ray showed fracture of the base of the 3rd to 5th metacarpals. Chest x-ray based on my review, no acute cardiopulmonary process, mild interstitial prominent marking. CBC: WBC 7.2, hemoglobin 10.6, platelet 249. INR 1.1. BMP: Sodium 138, potassium 4.5, chloride 107, carbon dioxide 21, anion gap 15, BUN 47, creatinine 3.53, glucose 141, calcium 9.5. LFT: AST 13, ALT less than 7, alkaline phosphatase is 98, albumin 3.9. TSH 48. Cardiac enzymes negative x3. Only one troponin was elevated to 0.033. BNP 112.9. Urinalysis showing proteinuria. ASSESSMENT AND PLAN: 1. Mechanical fall and subsequent ulnar fracture and fracture of the base of the third to fifth metacarpal fracture. The patient has already Velcro splint on the right wrist as well as splint in the left upper extremity. The patient has not seen orthopedic physician and that is why we will get opinion from orthopedic physician. The patient's pain will be controlled with pain medication. She will need outpatient followup. We will continue with the splint while in hospital. 2. Elevated troponin, only one troponin was elevated, most likely demand ischemia from hypertension, but subsequent troponin is negative. Patient does not have any chest pain and EKG is unremarkable. She already had echocardiography during previous admission. At this point, we will continue with aspirin and control her blood pressure. She does not need any more testing , because the patient is completely asymptomatic without any angina. 3. Chronic kidney disease stage 4, likely due to diabetic nephropathy. We will check protein creatinine ratio. She has to follow up with Dr. Cabrera as an outpatient basis. Her renal function when we compared, it is stable from baseline. She is not needing any dialysis at this point. We will check PTH and phosphorus. 4. Anemia of renal disease. The patient's hemoglobin is stable. We will continue with ferrous sulfate 325 mg p.o. daily. 5. Hypothyroidism, uncontrolled. Patient is taking her medication. I think that she will need increased dose of levothyroxine to 150 mcg p.o. daily and monitoring as an outpatient basis. 6. Sinus bradycardia. We will monitor the patient's pulse rate. I am expecting with control of hypothyroidism. Her pulse should be better controlled. We will continue Coreg 12.5 mg p.o. b.i.d. If pulse rate goes down , then we will hold on Coreg therapy or reduce the dose. 7. Hypertension. Continue losartan 50 mg p.o. daily, amlodipine 10 mg p.o. daily. 8. Coronary artery disease with history of myocardial infarction. Continue aspirin, beta garo, statin therapy. 9. Dyslipidemia. Continue Zocor 20 mg p.o. at bedtime. 10. Anxiety and depression. Continue Celexa as per home dosage. 11. Generalized weakness. Patient will need PT, OT. The patient is interested in going to halfway home versus rehabilitation and that is why we will consult rehab screen as well as pillowcase sewer consultation for placement. 12. Diabetes type 2. We will continue with insulin as per sliding scale per protocol. 13. Code status: Patient wants to be a full code, she does not have MPOA. Disposition plan based on clinical course. Patient is not feeling to go home later on today, but if rehabilitation is accepting her, then she can be discharged there. I tried to call the patient's [id number] on phone, but unable to reach at this point. ANNA
[2018-01-18 12:48] VITALS: BMI 22.9
[2018-01-18] MEDS: Acetaminophen 325 MG TAB PO PRN (13:09)
[2018-01-18] MEDS: Simvastatin 20 MG TAB PO SCH (20:27)
--- NOTE | 2018-01-18 22:47 | CON ---
DATE OF CONSULTATION: 01/18/2018 HISTORY OF PRESENT ILLNESS: We were asked by Hospitalist to see patient. Patient is here for a fall with an ensuing hand contusion on the right and a left midshaft ulnar fracture, nondisplaced. Brianne montalvo was with her grandchild and she was getting near the fence where they were bulls and the grandmoth er went to get the child fell, landed on her both upper extremities. She is having less pain now haley n she did initially when she was seen in the Emergency Room in [place], but she is still struggling with more left than right upper extremity pain. She is in a Velcro splint on the right and a sugar t dayana splint on the left. She feels all her hands moving them okay. The splint on her left upper extr emity is not very comfortable. Other than that, she is doing okay. PAST MEDICAL HISTORY: Positive for diabetes, kidney disease, diabetic neuropathy, hypertension, dysl ipidemia, coronary artery disease with history of IL, history of DVT, hypothyroidism, and chronic arnulfo stolic heart failure. PAST SURGICAL HISTORY: Bilateral knee, x2, CABG x3 and hip surgery. ALLERGIES: SULFA. SOCIAL HISTORY: , lives here with her [id number]. No alcohol or nicotine products. CURRENT MEDICATIONS: Amlodipine, losartan, Coreg, nitroglycerin, aspirin, Celexa, Zocor, Synthroid. REVIEW OF SYSTEMS: Positive for mostly pain right now and she feels very fatigued. Denies any chest pain or current shortness of breath. Rest of review of systems is negative. PHYSICAL EXAMINATION: GENERAL: Well-nourished female resting in bed in room #263, in no acute distress. Her speech is dax ar. Affect pleasant. Answers questions appropriately. She is oriented x3. HEENT: She does have some bruising to her face, but face is otherwise symmetric, smiles symmetric, t ongue midline. NECK: She is moving around a little stiff, but not overtly sore. EXTREMITIES: Upper extremities, right upper extremity is significantly bruised at the hand and wrist , but she is moving all of her digits well and again, she is in a Velcro wrist splint. Left upper ex tremity is in a sugar tong splint. All of her digits are moving. She does have a little bit of pain and stiffness with moving, but sensations are otherwise intact. X-rays show base metatarsal fractur es third through fifth with very subtle minimal displacement. ASSESSMENT: Left ulnar distal third fracture with mild displacement, but the bones are approximated. PLAN: From an ortho standpoint, the splint Velcro will be fine for her right hand. She can bear no weight on this and she probably will not be able to anyhow. As for the left upper extremity, she is in a sugar tong which is appropriate for her. She cannot bear weight on this either. The splint is uncomfortable. I have informed her we will get a change tomorrow and see if we can make it more comf ortable for her if we are able to. I informed her it may just be an uncomfortable thing because of t he swelling and all these things are going to be a little tough to get through, but we will see what we can do. I think she would be a good candidate for either skilled or rehab as her bilateral upper extremities will be out of commission for a while. We will also keep checking for neurological statu s. I have encouraged her to keep her extremities above her heart if she is able to. Hospitalist lane long treat her other medical conditions. This is Alex Oliva PA-C for Blaine Logan M.D.
[2018-01-19] MEDS: Levothyroxine Sodium 125 MCG TAB PO SCH (05:55)
[2018-01-19] MEDS: Acetaminophen 325 MG TAB PO PRN ×2 (06:22→21:03)
[2018-01-19] MEDS: Aspirin 81 mg Enteric Coated Tablet PO SCH (09:45)
[2018-01-19] MEDS: Amlodipine 10 MG TAB PO SCH (09:45)
[2018-01-19] MEDS: Carvedilol 6.25 MG TAB PO SCH ×2 (09:45→21:03)
[2018-01-19] MEDS: Losartan 25 MG TAB PO SCH (09:46)
[2018-01-19] MEDS: Famotidine 20 MG TAB PO SCH (09:46)
[2018-01-19] MEDS: Citalopram 10 MG TAB PO SCH (09:46)
--- NOTE | 2018-01-19 12:33 | PDOC.PN ---
- Subjective Encounter Start Date: 01/19/18 Encounter Start Time: 09:30 Patient seen and examined for Gen weakness. Feels slightly better. No new complaints. No overnight events - Objective Resuscitation Status: Resuscitation Status FULL:Full Resuscitation MAR Reviewed: Yes Vital Signs & Weight: Vital Signs (12 hours) Temp Pulse Resp BP BP Pulse Ox 01/19/18 08:00 97.6 F 59 L 14 01/19/18 07:00 97.6 F 59 L 14 146/71 H 100 01/19/18 03:27 97.6 F 62 17 133/65 99 Weight Admit Weight 146 lb 11.2 oz Weight 147 lb I&O: 01/18/18 01/19/18 01/20/18 06:59 06:59 06:59 Intake Total 100 590 Output Total 500 1850 Balance -400 -1260 Additional Labs: Accuchecks 01/19/18 01/18/18 01/18/18 05:20 20:37 16:14 POC Glucose 109 164 H 118 H EKG Reviewed by me: Yes (Tele SR) Phys Exam - Physical Examination Constitutional: NAD Respiratory: no wheezing, no rhonchi Cardiovascular: RRR, no rub Gastrointestinal: soft, non-tender, positive bowel sounds Musculoskeletal: no edema Neurological: moves all 4 limbs Dx/Plan - Plan DVT proph w/SCDs IMPRESSION: 1. General weakness with left ulnar fracture - multifactorial 2. CKD 4 3. Elevated troponins in indeterminate range 4. HLD 5. HTN 6. Hypothyroidism / Physical deconditioning PLAN: Cont Amlodipine/Coreg/Losartan for HTN Cont other meds as below including Levothyroxine/Zocor Ortho input appreciated Add Stool softeners Review of Systems - Review of Systems Respiratory: negative: Cough, Dry, Shortness of Breath, Hemoptysis, SOB with Excertion, Pleuritic Pain, Sputum, Wheezing Cardiovascular: negative: chest pain, palpitations, orthopnea, paroxysmal nocturnal dyspnea, edema, light headedness, other Gastrointestinal: Constipation. negative: Nausea, Vomiting, Abdominal Pain, Diarrhea, Melena, Hematochezia, Other - Medications/Allergies Allergies/Adverse Reactions: Allergies Allergy/AdvReac Type Severity Reaction Status Date / Time Sulfa (Sulfonamide Allergy Verified 09/29/17 21:40 Antibiotics) Medications: Current Medications Acetaminophen (Tylenol) 650 mg PO Q4H PRN PRN Reason: Headache/Fever or Pain Last Admin: 01/19/18 06:22 Dose: 650 mg Amlodipine Besylate (Norvasc) 10 mg PO DAILY [facility] Last Admin: 01/19/18 09:45 Dose: 10 mg Artificial Tears (Tears Naturale) 0 drop EA EYE PRN PRN PRN Reason: Dry Eyes Aspirin (Ecotrin) 81 mg PO DAILY [facility] Last Admin: 01/19/18 09:45 Dose: 81 mg Bisacodyl (Dulcolax) 10 mg KS DAILYPRN PRN PRN Reason: Constipation Calcium Carbonate (Tums) 1,000 mg PO Q4H PRN PRN Reason: Heartburn or Indigestion Carvedilol (Coreg) 12.5 mg PO BID [facility] Last Admin: 01/19/18 09:45 Dose: 12.5 mg Citalopram Hydrobromide (Celexa) 10 mg PO DAILY [facility] Last Admin: 01/19/18 09:46 Dose: 10 mg Dextrose/Water (Dextrose 50%) 25 gm SLOW IVP PRN PRN PRN Reason: Hypoglycemia Famotidine (Pepcid) 20 mg PO DAILY [facility] Last Admin: 01/19/18 09:46 Dose: 20 mg Glucagon (Glucagon) 1 mg IM PRN PRN PRN Reason: Hypoglycemia Guaifenesin (Robitussin Sf) 200 mg PO Q4H PRN PRN Reason: Cough Hydralazine HCl (Apresoline) 10 mg SLOW IVP Q4H PRN PRN Reason: Systolic BP > 180 Dextrose/Water (D5w) 1,000 mls @ 0 mls/hr IV .Q0M PRN PRN Reason: Hypoglycemia Insulin Human Lispro (Humalog) 0 units SC .MODERATE SLIDING SC PRN PRN Reason: Moderate Correctional Scale Insulin Human Lispro (Humalog) 0 units SC .BEDTIME SLIDING SC PRN PRN Reason: Bedtime Correctional Scale Levothyroxine Sodium (Synthroid) 125 mcg PO 0600 [facility] Last Admin: 01/19/18 05:55 Dose: 125 mcg Loperamide HCl (Imodium) 2 mg PO PRN PRN PRN Reason: Diarrhea/Loose Stools Loratadine (Claritin) 10 mg PO DAILYPRN PRN PRN Reason: Sinus Symptoms Losartan Potassium (Cozaar) 50 mg PO DAILY [facility] Last Admin: 01/19/18 09:46 Dose: 50 mg Magnesium Hydroxide (Milk Of Magnesium) 30 ml PO DAILYPRN PRN PRN Reason: Constipation Melatonin (Melatonin) 3 mg PO HSPRN PRN PRN Reason: Insomnia Mineral Oil/White Petrolatum (Eucerin Cream) 0 gm TOP BIDPRN PRN PRN Reason: Dry Skin Nitroglycerin (Nitrostat) 0.4 mg SL Q5MIN PRN PRN Reason: Chest Pain Ondansetron HCl (Zofran Odt) 4 mg PO Q6H PRN PRN Reason: Nausea/Vomiting Ondansetron HCl (Zofran) 4 mg IVP Q6H PRN PRN Reason: Nausea/Vomiting Phenol (Chloraseptic [place] 180 Ml Bot) 0 ml PO PRN PRN PRN Reason: Sore Throat Senna (Senokot) 2 tab PO HSPRN PRN PRN Reason: Constipation Simvastatin (Zocor) 20 mg PO [facility] Last Admin: 01/18/18 20:27 Dose: 20 mg Sodium Chloride (Flush - Normal Saline) 10 ml IVF PRN PRN PRN Reason: Saline Flush Sodium Chloride ([place] Nasal [place] 0.65%) 0 ml EA NARE QIDPRN PRN PRN Reason: Nasal Congestion Temazepam (Restoril) 15 mg PO HSPRN PRN PRN Reason: Insomnia
[2018-01-19 16:43] LABS: Creatinine, Urine 81.36 mg/dL (47-110)
[2018-01-19] MEDS: Senokot S 8.6-50 MG TAB PO SCH (21:03)
[2018-01-19] MEDS: Simvastatin 20 MG TAB PO SCH (21:03)
[2018-01-20] MEDS: Levothyroxine Sodium 125 MCG TAB PO SCH (03:52)
[2018-01-20] MEDS: Acetaminophen 325 MG TAB PO PRN ×2 (03:52→20:03)
[2018-01-20 06:05] LABS: #Eosinphils 0.3 thou/uL (0.0-0.7); #Lymphocytes 1.9 thou/uL (1.20-3.40); #Monocytes 0.4 thou/uL (0.11-0.59); #Neutrophils 2.5 thou/uL (1.40-6.50); %Basophils 0.8 % (0.0-1.0); %Lymphocytes 38.2 % (21.0-51.0); %Monocytes 7.7 % (0.0-10.0); %Neutrophils 48.3 % (42.0-75.0); Hemoglobin 10.5 g/dL (12.0-16.0); Mean Corpuscular HGB CONC 34.2 g/dL (32.0-36.0); Mean Corpuscular Hemoglobin 29.5 pg (27.0-31.0); Mean Corpuscular Volume 86.2 fL (78.0-98.0); Mean Platelet Volume 8.4 fL (7.4-10.4); Platelet Count 220 thou/uL (130-400); RBC Distribution Width 12.2 % (11.5-14.5); Red Blood Cell (RBC) Count 3.56 mill/uL (4.20-5.40); White Blood Cell (WBC) Count 5.1 thou/uL (4.8-10.8)
[2018-01-20 06:07] LABS: Anion Gap 11 mmol/L (10-20); BUN (Urea Nitrogen) 43 mg/dL (9.8-20.1); Calc. Creatinine Clearance 15 mL/min (70-130); Calcium 8.8 mg/dL (7.8-10.44); Carbon Dioxide 21 mmol/L (23-31); Chloride 105 mmol/L (98-107); Estimated GFR-MDRD 15; Glucose 100 mg/dL (83-110); Magnesium 1.7 mg/dL (1.6-2.6); Potassium 4.3 mmol/L (3.5-5.1); Sodium 133 mmol/L (136-145)
[2018-01-20] MEDS: Losartan 25 MG TAB PO SCH (10:42)
[2018-01-20] MEDS: Carvedilol 6.25 MG TAB PO SCH ×2 (10:42→20:03)
[2018-01-20] MEDS: Amlodipine 10 MG TAB PO SCH (10:42)
[2018-01-20] MEDS: Aspirin 81 mg Enteric Coated Tablet PO SCH (10:43)
[2018-01-20] MEDS: Senokot S 8.6-50 MG TAB PO SCH ×2 (10:43→20:03)
[2018-01-20] MEDS: Famotidine 20 MG TAB PO SCH (10:43)
[2018-01-20] MEDS: Citalopram 10 MG TAB PO SCH (10:43)
[2018-01-20] MEDS: Polyethylene Glycol 3350 17 GM Packet PO SCH ×2 (10:44)
--- NOTE | 2018-01-20 10:53 | EKG ---
Test Reason : Blood Pressure : / mmHG Vent. Rate : 054 BPM Atrial Rate : 054 BPM P-R Int : 148 ms QRS Dur : 084 ms QT Int : 492 ms P-R-T Axes : -02 060 092 degrees QTc Int : 466 ms Sinus bradycardia Otherwise normal ECG Confirmed by DAVID LEMUS, YAMILE ([id number]), television news video editor BRIAN ARREAGA ([id number]) on 01/20/2018 10:53:04 AM Referred By: Confirmed By:YAMILE HERNANDEZ MD
--- NOTE | 2018-01-20 12:08 | PDOC.PN ---
- Subjective Encounter Start Date: 01/20/18 Encounter Start Time: 12:07 No new complaints. She made it clear that she cannot go home. She uses a walker and now can't have any weight bearing on her upper extremities. Her son has and her daughter in law is managing a ranch, grandchildren and can't be available to help the patient. - Objective Resuscitation Status: Resuscitation Status FULL:Full Resuscitation MAR Reviewed: Yes Vital Signs & Weight: Vital Signs (12 hours) Temp Pulse Resp BP BP Pulse Ox 01/20/18 11:34 97.8 F 58 L 18 134/64 97 01/20/18 08:25 98.0 F 63 18 155/67 H 95 01/20/18 08:00 98.0 F 63 18 01/20/18 03:50 97.9 F 55 L 18 123/58 L 98 Weight Admit Weight 146 lb 11.2 oz Weight 147 lb 11.2 oz I&O: 01/19/18 01/20/18 01/21/18 06:59 06:59 06:59 Intake Total 590 1080 Output Total 1850 1000 Balance -1260 80 Result Diagrams: 01/20/18 05:20 01/20/18 05:20 Additional Labs: Accuchecks 01/20/18 01/20/18 01/19/18 10:40 05:11 20:10 POC Glucose 203 H 108 113 H 01/19/18 01/19/18 17:14 10:54 POC Glucose 117 H 112 H Phys Exam - Physical Examination Constitutional: NAD Respiratory: no wheezing, no rales, no rhonchi, clear to auscultation bilateral Cardiovascular: RRR, no significant murmur, no rub Gastrointestinal: soft, non-tender, no distention, positive bowel sounds BUE's with braces. Ecchymosis of right hand. Fingers NV intact Dx/Plan (1) Ulnar fracture Code(s): S52.209A - UNSP FRACTURE OF SHAFT OF UNSP ULNA, INIT FOR CLOS FX Status: Acute (2) Metacarpal bone fracture Code(s): S62.309A - UNSP FRACTURE OF UNSP METACARPAL BONE, INIT FOR CLOS FX Status: Acute (3) CKD (chronic kidney disease) Code(s): N18.9 - CHRONIC KIDNEY DISEASE, UNSPECIFIED Status: Chronic Qualifiers: Chronic kidney disease stage: stage 4 (severe) Qualified Code(s): N18.4 - Chronic kidney disease, stage 4 (severe) (4) Diabetes Code(s): E11.9 - TYPE 2 DIABETES MELLITUS WITHOUT COMPLICATIONS Status: Acute Qualifiers: Diabetes mellitus type: type 2 Diabetes mellitus nursing home insulin use: without telephone collector use Diabetes mellitus complication status: with kidney complications Diabetes mellitus complication detail: with nephropathy Qualified Code(s): E11.21 - Type 2 diabetes mellitus with diabetic nephropathy (5) COPD (chronic obstructive pulmonary disease) Status: Acute (6) Hypothyroidism Code(s): E03.9 - HYPOTHYROIDISM, UNSPECIFIED Status: Acute Qualifiers: Hypothyroidism type: acquired Qualified Code(s): E03.9 - Hypothyroidism, unspecified (7) Hx of coronary artery disease Code(s): Z86.79 - PERSONAL HISTORY OF OTHER DISEASES OF THE CIRCULATORY SYSTEM Status: Acute (8) Anemia Code(s): D64.9 - ANEMIA, UNSPECIFIED Status: Acute Qualifiers: Anemia type: due to chronic kidney disease Chronic kidney disease stage: stage 4 (severe) Qualified Code(s): N18.4 - Chronic kidney disease, stage 4 ( severe); D63.1 - Anemia in chronic kidney disease; D63.1 - Anemia in chronic kidney disease (9) Physical deconditioning Code(s): R53.81 - OTHER MALAISE Status: Acute - Plan * Continue with rehab. Awaiting placement.
[2018-01-20] MEDS: Simvastatin 20 MG TAB PO SCH (20:03)
[2018-01-21] MEDS: Acetaminophen 325 MG TAB PO PRN ×2 (00:14→20:02)
[2018-01-21] MEDS: Levothyroxine Sodium 125 MCG TAB PO SCH (05:26)
[2018-01-21] MEDS: Losartan 25 MG TAB PO SCH (08:50)
[2018-01-21] MEDS: Citalopram 10 MG TAB PO SCH (08:51)
[2018-01-21] MEDS: Famotidine 20 MG TAB PO SCH (08:51)
[2018-01-21] MEDS: Carvedilol 6.25 MG TAB PO SCH ×2 (08:51→20:04)
[2018-01-21] MEDS: Amlodipine 10 MG TAB PO SCH (08:51)
[2018-01-21] MEDS: Senokot S 8.6-50 MG TAB PO SCH ×2 (08:51→20:02)
[2018-01-21] MEDS: Aspirin 81 mg Enteric Coated Tablet PO SCH (08:51)
[2018-01-21] MEDS: Polyethylene Glycol 3350 17 GM Packet PO SCH (08:52)
--- NOTE | 2018-01-21 11:03 | PDOC.PN ---
- Subjective Encounter Start Date: 01/21/18 Encounter Start Time: 11:01 Did not sleep well, but otherwise has no complaints. - Objective Resuscitation Status: Resuscitation Status FULL:Full Resuscitation Vital Signs & Weight: Vital Signs (12 hours) Temp Pulse Resp BP Pulse Ox 01/21/18 07:50 97.9 F 59 L 12 138/66 100 01/21/18 07:30 97.9 F 59 L 12 01/21/18 04:00 97.9 F 56 L 16 129/62 96 Weight Admit Weight 146 lb 11.2 oz Weight 147 lb 14.4 oz I&O: 01/20/18 01/21/18 01/22/18 06:59 06:59 06:59 Intake Total 1080 240 Output Total 1000 1200 Balance 80 -960 Result Diagrams: 01/20/18 05:20 01/20/18 05:20 Additional Labs: Accuchecks 01/21/18 01/20/18 01/20/18 05:58 20:47 16:55 POC Glucose 106 116 H 131 H 01/20/18 10:40 POC Glucose 203 H Phys Exam - Physical Examination Constitutional: NAD Respiratory: no wheezing, no rales, no rhonchi Cardiovascular: RRR, no significant murmur, no rub Gastrointestinal: soft, non-tender, no distention, positive bowel sounds Musculoskeletal: no edema Right forearm brace, LUE sling. Dx/Plan (1) Ulnar fracture Code(s): S52.209A - UNSP FRACTURE OF SHAFT OF UNSP ULNA, INIT FOR CLOS FX Status: Acute Comment: Soft brace. (2) Metacarpal bone fracture Code(s): S62.309A - UNSP FRACTURE OF UNSP METACARPAL BONE, INIT FOR CLOS FX Status: Acute Comment: Soft brace. (3) CKD (chronic kidney disease) Code(s): N18.9 - CHRONIC KIDNEY DISEASE, UNSPECIFIED Status: Chronic Qualifiers: Chronic kidney disease stage: stage 4 (severe) Qualified Code(s): N18.4 - Chronic kidney disease, stage 4 (severe) (4) Diabetes Code(s): E11.9 - TYPE 2 DIABETES MELLITUS WITHOUT COMPLICATIONS Status: Acute Qualifiers: Diabetes mellitus type: type 2 Diabetes mellitus halfway insulin use: without halfway use Diabetes mellitus complication status: with kidney complications Diabetes mellitus complication detail: with nephropathy Qualified Code(s): E11.21 - Type 2 diabetes mellitus with diabetic nephropathy Comment: Well controlled. (5) COPD (chronic obstructive pulmonary disease) Status: Acute (6) Hypothyroidism Code(s): E03.9 - HYPOTHYROIDISM, UNSPECIFIED Status: Acute Qualifiers: Hypothyroidism type: acquired Qualified Code(s): E03.9 - Hypothyroidism, unspecified (7) Hx of coronary artery disease Code(s): Z86.79 - PERSONAL HISTORY OF OTHER DISEASES OF THE CIRCULATORY SYSTEM Status: Acute (8) Anemia Code(s): D64.9 - ANEMIA, UNSPECIFIED Status: Acute Qualifiers: Anemia type: due to chronic kidney disease Chronic kidney disease stage: stage 4 (severe) Qualified Code(s): N18.4 - Chronic kidney disease, stage 4 ( severe); D63.1 - Anemia in chronic kidney disease; D63.1 - Anemia in chronic kidney disease (9) Physical deconditioning Code(s): R53.81 - OTHER MALAISE Status: Acute - Plan * Doing well. Awaiting placement. Will DC tele and move to medical.
[2018-01-21] MEDS: Simvastatin 20 MG TAB PO SCH (20:03)
[2018-01-22] MEDS: Levothyroxine Sodium 125 MCG TAB PO SCH (06:15)
[2018-01-22 08:06] VITALS: TEMP 97.3
[2018-01-22] MEDS: Polyethylene Glycol 3350 17 GM Packet PO SCH ×2 (10:11→10:17)
[2018-01-22] MEDS: Citalopram 10 MG TAB PO SCH (10:11)
[2018-01-22] MEDS: Aspirin 81 mg Enteric Coated Tablet PO SCH (10:11)
[2018-01-22] MEDS: Losartan 25 MG TAB PO SCH (10:11)
[2018-01-22] MEDS: Senokot S 8.6-50 MG TAB PO SCH (10:11)
[2018-01-22] MEDS: Carvedilol 6.25 MG TAB PO SCH (10:11)
[2018-01-22] MEDS: Amlodipine 10 MG TAB PO SCH (10:12)
[2018-01-22] MEDS: Famotidine 20 MG TAB PO SCH (10:13)
[2018-01-22] MEDS: Acetaminophen 325 MG TAB PO PRN (11:22)
[2018-01-22 12:06] VITALS: BP 154/67
--- NOTE | 2018-01-23 14:03 | DIS ---
DATE OF ADMISSION: 01/17/2018 DATE OF DISCHARGE: 01/22/2018 DISCHARGE DIAGNOSES: 1. Ulnar fracture. 2. Metacarpal fractures. 3. Chronic kidney disease. 4. Diabetes mellitus. 5. Chronic obstructive pulmonary disease. 6. History of hypothyroidism. 7. History of coronary artery disease. 8. Anemia. 9. Physical deconditioning. HISTORY: This patient is an 87-year-old female, who presented via the emergency department complaini ng of some generalized weakness. She indicated a fall that had occurred a couple of days prior to he r admission when she was trying to help a great grandchild avoid a dangerous situation and had some i njuries of her upper extremities. In the emergency department, her workup indicated a left ulnar fra cture and right metacarpal fractures. HOSPITAL COURSE: The patient was admitted to the hospital with generalized weakness, mechanical fall and these fracture injuries. She was noted to have mild anemia with hemoglobin of 10.5. TSH was __ ___. Troponin was negative. BUN is 43 and creatinine was 2.99, which was actually slightly higher. Actually, her initial troponin was 3.53, which is barely higher than her usual baseline. The patien t was seen by Orthopedics who put the patient in some splints and recommended nonweightbearing. The patient was challenged because she typically requires a walker to ambulate and could not use her uppe r extremities. She did receive some hydration and monitoring her creatinine did come down to 2.99. She was seen by various therapies and the patient was very interested in getting some rehabilitation. Case management was consulted and did find appropriate placement for the patient in a SNF rehab set ting. PHYSICAL EXAMINATION: VITAL SIGNS: On the day of discharge, temperature is 97.3, pulse is 49, respirations 16, O2 sat was 94%, blood pressure is 154/67. GENERAL: The patient was awake, alert, oriented. HEART: Regular rate and rhythm without murmurs. LUNGS: Clear bilaterally. ABDOMEN: Benign. EXTREMITIES: Revealed some ecchymoses in the right hand area with some splinting. The left upper ar m was in a soft cast as well. DISPOSITION: The patient is discharged to group home facility in [place]. DISCHARGE MEDICATIONS: She will be on nitroglycerin p.r.n., Imodium p.r.n., Claritin p.r.n., Milk of Magnesia p.r.n., MiraLax daily, Senokot S, [place] nasal spray, temazepam 15 mg at bedtime p.r.n., Tyl enol, Dulcolax, melatonin, Coreg 12.5 b.i.d., citalopram 10 mg q. day, losartan 50 mg q. day, amlodip ine 10 mg q. day, levothyroxine dose will be increased from 112 to 125 mcg q. day, Zocor 20 mg q. day , aspirin 81 mg q. day. ACTIVITY: Her activity level is as tolerated. DIET: She will remain on a diabetic diet. FOLLOWUP: She will be seen by OT and PT. She should follow up with Dr. Moran in [place] and Dr. Irwin myrick in 2-3 weeks. She should return to the emergency department should she have problems .
== END 2018-01-22 14:55 ==
LOC: ERS 19:03 → 2NO 23:11 → SURG B 01-21 11:54
PROVIDERS: ADMIT Family Medicine; ATTEND Family Medicine
DX: R53.1 Weakness (principal); R53.81 Other malaise; I13.0 Hypertensive heart and chronic kidney disease with heart failure and stage 1 through stage 4 chronic kidney disease, or unspecified chronic kidney disease; E11.22 Type 2 diabetes mellitus with diabetic chronic kidney disease; N18.4 Chronic kidney disease, stage 4 (severe); I50.32 Chronic diastolic (congestive) heart failure; D63.1 Anemia in chronic kidney disease; E11.21 Type 2 diabetes mellitus with diabetic nephropathy; E78.5 Hyperlipidemia, unspecified; I25.10 Atherosclerotic heart disease of native coronary artery without angina pectoris; I25.2 Old myocardial infarction; E03.9 Hypothyroidism, unspecified; F41.8 Other specified anxiety disorders; J44.9 Chronic obstructive pulmonary disease, unspecified; S52.602A Unspecified fracture of lower end of left ulna, initial encounter for closed fracture; S62.312A Displaced fracture of base of third metacarpal bone, right hand, initial encounter for closed fracture; S62.314A Displaced fracture of base of fourth metacarpal bone, right hand, initial encounter for closed fracture; S62.316A Displaced fracture of base of fifth metacarpal bone, right hand, initial encounter for closed fracture; Z86.718 Personal history of other venous thrombosis and embolism; Z86.73 Personal history of transient ischemic attack (TIA), and cerebral infarction without residual deficits; Z79.82 Long term (current) use of aspirin; Z79.899 Other long term (current) drug therapy; Z88.2 Allergy status to sulfonamides; Z95.1 Presence of aortocoronary bypass graft; Z98.890 Other specified postprocedural states; W19.XXXA Unspecified fall, initial encounter
CPT/HCPCS: 71045; 80048; 82570; 82962 ×5; 83735; 84156; 84443; 84484 ×2; 85025; 93005; 97110 ×2; 97116 ×3; 97139 ×2; 99285; G0378 ×3; G8978; G8979; G8987; G8988; 36415; 36416; A4216; J2270